=== PATIENT | female | born 1955 | race Caucasian/White ===

== ENCOUNTER 2016-05-07 13:16 | Emergency (ER) | payer OTHER ==
[~2016-05-07] VITALS: Ht 157.5 cm; Wt 60.0 kg
[~2016-05-07 13:16] MED LIST: ALBU8I INH; ASPI-94 PO; AZIT250T74 PO; CEFU1TAB43 PO; METO25 PO; Meclizine Hcl PO; NITR.4 SL; ROBIDMS PO
[2016-05-07 13:17] VITALS: BP 128/94; PULSE 111; RESP 16; TEMP 97.7; O2SAT 99
[2016-05-07] MEDS ORDERED: BACT800T5 PO (14:26)
[2016-05-07] MEDS ORDERED: CEPH-460 PO (14:26)
--- NOTE | 2016-05-07 14:30 | PD ---
HPI Chief Complaint: Skin Problem Time Seen by Provider: 14:20 Travel History International Travel<30 days: No Contact w/Intl Traveler<30days: No Traveled to known affect area: No History of Present Illness HPI 60-year-old female presents to the emergency Department with complaint of a rash to her bilateral lower extremities for the last 3 weeks. She says that she has areas that develop and then scab over and they go away but more areas develop and are doing the same process. She says starting to spread to her buttocks and her left lateral flank. She has tried topical antibiotic ointment with no relief of symptoms. She lives in a homeless half-way and says there was a woman there that had a similar rash. She denies fever, chills, nausea, vomiting. Reports some of the areas are tender to palpation. Denies drainage from any of the areas. No known allergies. History of congestive heart failure. No other modifying factors or associated signs and symptoms. PFSH Past Medical History Asthma: No Blood Disorders: No Anxiety: No Depression: No Heart Rhythm Problems: No Cancer: No Cardiovascular Problems: Yes (VT X 2 /STRESS TEST/) Chemotherapy: No Chest Pain: Yes (S) Congestive Heart Failure: Yes (2007 ) Coronary Artery Disease: Yes Diabetes: No Diminished Hearing: No Endocrine: No Genitourinary: No Hypertension: Yes (NOT TAKING MEDICATIONS) Immune Disorder: No Musculoskeletal: No Neurologic: No Psychiatric: No Reproductive: No Respiratory: No Myocardial Infarction: Yes (2007) Radiation Therapy: No Sleep Apnea: No Thyroid Disease: No Menopausal: Yes Past Surgical History Section: Yes (X3) Social History Alcohol Use: No Tobacco Use: Yes (1/2 PACK A DAY FOR 20 YEARS) Substance Use: No Allergies-Medications (Allergen,Severity, Reaction): Coded Allergies: No Known Allergies (Verified , 09/11/13) Reported Meds & Prescriptions Reported Meds & Active Scripts Active Bactrim DS (Sulfamethoxazole-Trimethoprim) 800-160 Mg Tab 1 Tab PO BID 10 Days Keflex (Cephalexin) 500 Mg Cap 500 Mg PO Q8H 10 Days Ceftin 500 Mg Tab (Cefuroxime Axetil) 500 Mg Tab 500 Mg PO BID 12 Days Zithromax (Azithromycin) 250 Mg Tab 250 Mg PO DAILY Nitroglycerin Tab 0.4 Mg Sl (Nitroglycerin) 0.4 Mg Subl 0.4 Mg SL Q5M PRN 30 Days Metoprolol Tartrate 25 mg (Metoprolol Tartrate) 25 Mg Tab 12.5 Mg PO Q12 30 Days [Meclizine Hcl] 25 MG Tab 25 Mg PO Q8 PRN 7 Days Robitussin Dm 10 Ml Udc (Guaifenesin/Dextromethorphan) 10 Ml Liqd 10 Ml PO Q4H PRN 7 Days EC-81 Aspirin (Aspirin) 81 Mg Tabec 162 Mg PO DAILY Ventolin Hfa (Albuterol Sulfate) 8 Gm Aero 2 Puff INH Q4 * SHAKE WELL BEFORE USE * Review of Systems Except as stated in HPI: all other systems reviewed are Neg Physical Exam Narrative GENERAL: Well-nourished, well-developed female patient, in no acute distress; afebrile, nontoxic-appearing SKIN: Warm and dry. Multiple honey crusted lesions in different stages of healing noted to bilateral lower extremities and one lesion noted to the left buttock. No areas with drainage noted. There are erythemic rings around some of the areas that may be consistent with infection. Multiple circular scars from healed lesions noted to bilateral lower extremities. HEAD: Atraumatic. Normocephalic. EYES: Pupils equal and round. No scleral icterus. No injection or drainage. ENT: Mucosa pink and moist. Airway patent. NECK: Trachea midline. CARDIOVASCULAR: Regular rate and rhythm. No murmur appreciated. RESPIRATORY: No accessory muscle use. Breath sounds clear and equal bilaterally. GASTROINTESTINAL: Abdomen soft, non-tender, nondistended. Positive bowel sounds. No hepato-splenomegaly, or palpable masses. No guarding. MUSCULOSKELETAL: No obvious deformities. No clubbing. No cyanosis. No edema. NEUROLOGICAL: Awake and alert. Oriented 3. No obvious cranial nerve deficits. Motor grossly within normal limits. Normal speech. PSYCHIATRIC: Appropriate mood and affect; insight and judgment normal. Data Data Last Documented VS Vital Signs Date Time Temp Pulse Resp B/P Pulse Ox O2 Delivery O2 Flow Rate FiO2 05/07/16 13:49 18 05/07/16 13:17 97.7 111 128/94 99 Room Air MDM Medical Decision Making Medical Screen Exam Complete: Yes Emergency Medical Condition: Yes Medical Record Reviewed: Yes Differential Diagnosis Bedbugs, impetigo, cellulitis Narrative Course 60-year-old female physical exam consistent with impetigo rash to bilateral lower extremities that is spreading to her buttocks. She is afebrile and nontoxic appearing. Heart rate on examination his approximately 90 bpm. She denies fever, chills, nausea, vomiting. Lives in a homeless half-way and a woman that lives there also had a similar rash. Keflex and Bactrim prescribed for home. Instructed patient to follow up with dermatology. Patient verbalizes understanding and agreement with treatment plan. Patient is medically cleared and stable for discharge. Discussed reasons to return to the emergency department. Instructed patient to follow up with primary care provider. Patient agrees with treatment plan. The patients vital signs are stable and the patient is stable for outpatient follow-up and treatment. Patient discharged home, stable and in no acute distress. Diagnosis Primary Impression: Impetigo Referrals: [facility] Primary Care Physician Patient Instructions: General Instructions, Impetigo (ED) Departure Forms: Tests/Procedures Additional Instructions: Soak affected area in warm water or apply wet compresses Apply antibiotic ointment as prescribed Use bandaids over lesions to decrease risk of spreading Wash clothes, linens, and pulse every day and don't share them with anyone else to decrease risk of spreading Wear gloves when applying antibiotic ointment and wash your hands thoroughly afterward Cut fingernails to prevent damage from scratching Wash hands frequently Keep the child home and to follow-up with the hand dry cleaner and are told that the child is not contagious Follow-up with hand dry cleaner Return to the emergency department immediately with worsening of symptoms Med/Other Pt SpecificInfo: Prescription(s) given Scripts Sulfamethoxazole-Trimethoprim (Bactrim DS)800-160 Mg Tab1 Tab PO BID 10 Days Ref 0 Prov:Mariana Bazan 05/07/16 Cephalexin (Keflex)500 Mg Lay594 Mg PO Q8H 10 Days Ref 0 Prov:Mariana Bazan 05/07/16 Disposition: 01 DISCHARGE HOME Condition: Stable Mariana Bazan May 07, 2016 14:30
[2016-05-07 14:35] VITALS: PULSE 94
== END 2016-05-07 14:52 | disposition home or self-care (01) ==
LOC: NETRI 13:16
DX: L01.00 Impetigo, unspecified (principal); I50.9 Heart failure, unspecified; I25.10 Atherosclerotic heart disease of native coronary artery without angina pectoris
CPT/HCPCS: 99283

== ENCOUNTER 2016-07-10 11:31 | Emergency (ER) | payer OTHER ==
[~2016-07-10] VITALS: Ht 157.5 cm; Wt 55.0 kg
[~2016-07-10 11:31] MED LIST changes: +BACT800T5 PO; +CEPH-460 PO
[2016-07-10 11:34] VITALS: BP 111/74; PULSE 105; RESP 18; TEMP 97.7; O2SAT 98
--- NOTE | 2016-07-10 11:59 | PD ---
HPI Chief Complaint: Pain: Acute or Chronic Time Seen by Provider: 11:45 Travel History International Travel<30 days: No Contact w/Intl Traveler<30days: No Traveled to known affect area: No History of Present Illness HPI This is a 61-year-old female who presents for evaluation of lower back pain. She reports that 2 weeks ago she was stretching on the ground. As she went to sit up she experienced some pain in her lower back. The pain is an aching/ shooting pain that is in the bilateral lower back region and it occasionally radiates into the hips and proximal thighs. Pain is reproduced with movement. Pain is minimal with rest. She has been using ibuprofen with mild relief which prompted evaluation. She denies any trauma. She denies any bowel or bladder incontinence, saddle anesthesia, flank pain, nausea or vomiting, abdominal pain. She has had similar sciatic pain in the past. In addition the patient has an area of soft tissue swelling to the anterior right park. Symptoms started 2 months ago when she hit her right park against the railing of a bowling alley. Initially the soft tissue swelling was significantly worse and seems to have improved some but it has persisted for 2 months. Pain is worse with palpation. No other complaints. PFSH Past Medical History Asthma: No Blood Disorders: No Anxiety: No Depression: No Heart Rhythm Problems: No Cancer: No Cardiovascular Problems: Yes (chf) Chemotherapy: No Chest Pain: Yes (S) Congestive Heart Failure: Yes (2007 ) Coronary Artery Disease: Yes Diabetes: No Diminished Hearing: No Endocrine: No Genitourinary: No Hypertension: Yes (NOT TAKING MEDICATIONS) Immune Disorder: No Musculoskeletal: No Neurologic: No Psychiatric: No Reproductive: No Respiratory: No Myocardial Infarction: Yes (2007) Radiation Therapy: No Sleep Apnea: No Thyroid Disease: No Menopausal: Yes Past Surgical History Section: Yes (X3) Social History Alcohol Use: No Tobacco Use: Yes (1/2 PACK A DAY FOR 20 YEARS) Substance Use: No Allergies-Medications (Allergen,Severity, Reaction): Coded Allergies: No Known Allergies (Verified , 07/10/16) Reported Meds & Prescriptions Reported Meds & Active Scripts Active Baclofen 10 Mg Tab 10 Mg PO TID PRN 7 Days Lidoderm Patch 12 HR (Lidocaine) 5% Patch 1 Patch TOPICAL DAILY Remove patch after 12 hours Reported Ibuprofen 400 Mg Tab 400 Mg PO Q6H PRN Review of Systems Except as stated in HPI: all other systems reviewed are Neg Physical Exam Narrative GENERAL: Pleasant well developed well-nourished female in no acute distress resting comfortably in hospital bed. She was able to relate from her wheelchair to the bed. SKIN: Warm and dry. HEAD: Atraumatic. Normocephalic. There is a 1.5 cm area of soft tissue swelling to the anterior right park, tender to palpation. No ecchymosis or drainage. EYES: Pupils equal and round. No scleral icterus. No injection or drainage. ENT: No nasal bleeding or discharge. Mucous membranes pink and moist. NECK: Trachea midline. No JVD. CARDIOVASCULAR: Regular rate and rhythm. No murmur appreciated. RESPIRATORY: No accessory muscle use. Clear to auscultation. Breath sounds equal bilaterally. GASTROINTESTINAL: Abdomen soft, non-tender, nondistended. No palpable pulsatile masses. No CVA tenderness. MUSCULOSKELETAL: No obvious deformities. There is no tenderness to palpation along the thoracic or lumbar midline spine. 5 muscle strength in flexion, leg flexion and extension, dorsi and plantar flexion bilaterally. There is no obvious discomfort when the patient goes from a lying down to a sitting position independently. NEUROLOGICAL: Awake and alert. No obvious cranial nerve deficits. Motor grossly within normal limits. Normal speech. Data Data Last Documented VS Vital Signs Date Time Temp Pulse Resp B/P Pulse Ox O2 Delivery O2 Flow Rate FiO2 07/10/16 11:34 97.7 105 18 111/74 98 Orders Tibia/Fibula (Ap/Lat) (07/10/16 ) Orphenadrine Inj (Norflex Inj) (07/10/16 12:00) Acetaminophen (Tylenol) (07/10/16 12:00) MDM Medical Decision Making Medical Screen Exam Complete: Yes Emergency Medical Condition: Yes Medical Record Reviewed: Yes Differential Diagnosis Herniated mucous pulposus, piriformis syndrome, compression fracture, spinal stenosis, lumbar strain, no evidence for AAA or cauda equina syndrome Narrative Course 61-year-old female with lower back pain that occasionally radiates into the thighs. Symptoms started 2 weeks ago when she went to sit up from a mat on the floor. Physical examination is reassuring. She has no symptoms to suggest spinal cord compromise. She has no vertebral tenderness to palpation to suggest bony abnormality. Suspect lumbosacral radiculopathy. In addition the patient has an area of soft tissue swelling and tenderness to palpation to the anterior right park which initially started 2 months ago when she hit her leg against the railing and the bowling alley. Given the duration of her symptoms, tibia-fibula x-ray has been ordered. X-ray imaging is unremarkable. The patient is stable for discharge. She is given information on patient assistance program for outpatient follow-up purposes. Diagnosis Primary Impression: Lumbosacral radiculopathy Additional Instructions: Medication as needed. Do not drive or drink alcohol when taking baclofen. Avoid strenuous activity, heavy lifting. Follow up close with primary care physician. You may benefit from outpatient physical therapy if symptoms persist. Return for any emergent medical conditions. Med/Other Pt SpecificInfo: Prescription(s) given Scripts Baclofen 10 Mg Tab10 Mg PO TID PRN (MUSCLE SPASM) 7 Days Ref 0 Prov:Nicholas Clemente MD 07/10/16 Lidocaine Patch 12 HR (Lidoderm Patch 12 HR)5% Patch1 Patch TOPICAL DAILY #1 BOX Ref 1 Remove patch after 12 hours Prov:Nicholas Clemente MD 07/10/16 Disposition: 01 DISCHARGE HOME Condition: Stable Ray Muñiz July 10, 2016 11:59
[2016-07-10] MEDS ORDERED: ACETAMINOPHEN 325 MG TAB PO ONE (12:00)
[2016-07-10] MEDS ORDERED: ORPHENADRINE INJ 60 MG/2 ML AMP IM ONE (12:00)
[2016-07-10] MEDS ORDERED: IBUP400T20 PO (12:08)
[2016-07-10] MEDS ORDERED: BACL10TA PO ×3 (12:30→12:36)
[2016-07-10] MEDS ORDERED: LIDO5DIS35 TOPICAL ×3 (12:30→12:36)
[2016-07-10 12:43] VITALS: BP 105/57
--- NOTE | 2016-07-10 13:34 | RADRPT ---
EXAM DATE/TIME: 07/10/2016 12:10 [facility] COMPARISON: No previous studies available for comparison. INDICATIONS : Right mid tib/fib pain and knot for 6 months. Lump to the right mid tib/fib appeared after hitting a wall 6 months ago. MEDICAL HISTORY : None. SURGICAL HISTORY : None. ENCOUNTER: Initial ACUITY: 4 - 6 months PAIN SCORE: 5/10 LOCATION: Right lower leg. FINDINGS: Two view examination of the right tibia demonstrates very mild periosteal reaction along the anterior mid tibial cortex. Findings are nonspecific and could represent a focal area of prior trauma. Otherw ise, no fracture. Adjacent soft tissues are radiographically intact. CONCLUSION: 1. Focal area of periosteal reaction in the anterior junction of the upper and middle third of the ti dwight. Findings are nonspecific and could represent previous focal trauma or a small hairline fracture. 2. No large bone fracture identified. Regional soft tissues are otherwise rigorously intact. Jesus Lundberg MD on July 10, 2016 at 13:29 Board Certified Radiologist. This report was verified electronically.
== END 2016-07-10 12:54 | disposition home or self-care (01) ==
LOC: NEPD 11:31
DX: M54.17 Radiculopathy, lumbosacral region (principal); R22.41 Localized swelling, mass and lump, right lower limb; I10 Essential (primary) hypertension; I25.2 Old myocardial infarction; F17.200 Nicotine dependence, unspecified, uncomplicated; Z86.79 Personal history of other diseases of the circulatory system
CPT/HCPCS: 73590; 96372; 99283; J2360

== ENCOUNTER 2016-08-06 14:23 | Inpatient (IN) | payer OTHER ==
[~2016-08-06] VITALS: Ht 157.5 cm; Wt 49.1 kg
[~2016-08-06 14:23] MED LIST changes: -ALBU8I INH; -ASPI-94 PO; -AZIT250T74 PO; +BACL10TA PO; -BACT800T5 PO; -CEFU1TAB43 PO; -CEPH-460 PO; +IBUP400T20 PO; +LIDO5DIS35 TOPICAL; -METO25 PO; -Meclizine Hcl PO; -NITR.4 SL; -ROBIDMS PO
[2016-08-06 14:30] VITALS: BP 98/66; PULSE 120; RESP 18; TEMP 98.1; O2SAT 98
--- NOTE | 2016-08-06 16:30 | PD ---
HPI . right hip pain Chief Complaint: Pain: Acute or Chronic Time Seen by Provider: 16:30 Travel History International Travel<30 days: No Contact w/Intl Traveler<30days: No Traveled to known affect area: No History of Present Illness HPI 61-year-old female here with complaints of right hip pain. Patient tells me she is homeless and does not have anyone to assist her. She says that she has developed increased right hip pain and thinks she may have broken it. She reports difficulty using her walker secondary the pain. She rates it as very severe. While lying in the bed she has full range of motion of bilateral hips and lower extremity. She tells me that the pain is so intense that she has decided to just lay in bed and urinate and have bowel movements on herself. She is fully aware of having these episodes of incontinence, but says that her pain is so severe that she refuses to get up to try to make toilet. She also reports not showering for 2 weeks. She denies any saddle anesthesia. She denies any recent falls or trauma to the area. She is currently residing in a [facility] homeless snf. PFSH Past Medical History Asthma: No Blood Disorders: No Anxiety: No Depression: No Heart Rhythm Problems: No Cancer: No Cardiovascular Problems: Yes (chf) Chemotherapy: No Chest Pain: Yes (S) Congestive Heart Failure: Yes (2007 ) Coronary Artery Disease: Yes Diabetes: No Diminished Hearing: No Endocrine: No Gastrointestinal Disorders: No Genitourinary: No Hypertension: Yes (NOT TAKING MEDICATIONS) Immune Disorder: No Implanted Vascular Access Dvce: No Musculoskeletal: No Neurologic: No Psychiatric: No Reproductive: No Respiratory: Yes Myocardial Infarction: Yes (2007) Radiation Therapy: No Sleep Apnea: No Thyroid Disease: No Menopausal: Yes Past Surgical History Section: Yes (X3) Other Surgery: Yes (3 C SECTIONS) Social History Alcohol Use: No Tobacco Use: Yes (1/2 PACK A DAY FOR 20 YEARS) Substance Use: No Allergies-Medications (Allergen,Severity, Reaction): Coded Allergies: No Known Allergies (Verified , 07/10/16) Reported Meds & Prescriptions Reported Meds & Active Scripts Active No Active Prescriptions or Reported Medications Review of Systems General / Constitutional: No: Fever Eyes: No: Visual changes HENT: No: Headaches Cardiovascular: No: Chest Pain or Discomfort Respiratory: No: Shortness of Breath Gastrointestinal: No: Abdominal Pain Genitourinary: No: Dysuria Musculoskeletal: Positive: Pain (right hip) Skin: No Rash Neurologic: No: Weakness Psychiatric: No: Depression Endocrine: No: Polydipsia Hematologic/Lymphatic: No: Easy Bruising Physical Exam Narrative GENERAL: AAO x 3, no acute distress, Well-nourished, well-developed patient. SKIN: Warm and dry. No visible rashes or bruising. HEAD: Normocephalic and atraumatic. EYES: No scleral icterus. No injection or drainage. EOM intact, PERRLA ENT: No nasal drainage noted. Mucous membranes pink. Airway patent. dry mucous membranes, otherwise normal oropharynx NECK: Supple, trachea midline. No JVD. CARDIOVASCULAR: Regular rate and rhythm without murmurs, gallops, or rubs. RESPIRATORY: Breath sounds equal bilaterally. No accessory muscle use. No rhonchi or rales. GASTROINTESTINAL: Abdomen soft, non-tender, nondistended. EXTREMITIES: No cyanosis or edema. FULL active and passive ROM B/l hip and lower extremity, BACK: Nontender without obvious deformity. No CVA tenderness. NEURO: CN II-12 intact, preschool substitute teacher strength normal b/l, UE and LE 5/5, no focal deficits PSYCH: AAO x 3, normal affect. Data Data Last Documented VS Vital Signs Date Time Temp Pulse Resp B/P Pulse Ox O2 Delivery O2 Flow Rate FiO2 08/06/16 18:30 100 17 159/94 98 Room Air 08/06/16 14:30 98.1 Orders Hip, Uni(Ap&Lat) Wo Ap Pelvis (08/06/16 16:38) Urinalysis - C+S If Indicated (08/06/16 16:43) Electrocardiogram (08/06/16 ) Iv Access Insert/Monitor (08/06/16 16:44) Sodium Chlor 0.9% 1000 Ml Inj (Ns 1000 M (08/06/16 16:45) Complete Blood Count With Diff (08/06/16 16:48) Comprehensive Metabolic Panel (08/06/16 16:48) Spine, Lumbar Comp W/Obliq (08/06/16 17:25) Potassium Chloride (Kcl) (08/06/16 18:15) Basic Metabolic Panel (Bmp) (08/06/16 18:38) Diet Regular Basic (08/06/16 Dinner) Vital Signs (Adult) PHANI.Q4H (08/06/16 18:38) Acetaminophen (Tylenol) (08/06/16 18:45) Sodium Chlor 0.9% 1000 Ml Inj (Ns 1000 M (08/06/16 18:45) Ondansetron Inj (Zofran Inj) (08/06/16 18:45) Admit Order (Ed Use Only) (08/06/16 18:41) Labs Laboratory Tests Test 08/06/16 17:00 White Blood Count 12.2 TH/MM3 Red Blood Count 3.65 MIL/MM3 Hemoglobin 12.1 GM/DL Hematocrit 36.4 % Mean Corpuscular Volume 99.8 FL Mean Corpuscular Hemoglobin 33.2 PG Mean Corpuscular Hemoglobin 33.2 % Concent Red Cell Distribution Width 15.2 % Platelet Count 235 TH/MM3 Mean Platelet Volume 9.3 FL Neutrophils (%) (Auto) 77.9 % Lymphocytes (%) (Auto) 15.0 % Monocytes (%) (Auto) 6.1 % Eosinophils (%) (Auto) 0.3 % Basophils (%) (Auto) 0.7 % Neutrophils # (Auto) 9.5 TH/MM3 Lymphocytes # (Auto) 1.8 TH/MM3 Monocytes # (Auto) 0.7 TH/MM3 Eosinophils # (Auto) 0.0 TH/MM3 Basophils # (Auto) 0.1 TH/MM3 CBC Comment DIFF FINAL Differential Comment Urine Color YELLOW Urine Turbidity HAZY Urine pH 6.0 Urine Specific [place] 1.024 Urine Protein 30 mg/dL Urine Glucose (UA) NEG mg/dL Urine Ketones 40 mg/dL Urine Occult Blood TRACE Urine Nitrite NEG Urine Bilirubin NEG Urine Urobilinogen 4.0 MG/DL Urine Leukocyte Esterase NEG Urine RBC 3 /hpf Urine WBC 4 /hpf Urine Squamous Epithelial 1 /hpf Cells Urine Bacteria RARE /hpf Urine Mucus MANY /lpf Microscopic Urinalysis Comment CULT NOT INDICATED Sodium Level 144 MEQ/L Potassium Level 2.2 MEQ/L Chloride Level 102 MEQ/L Carbon Dioxide Level 27.1 MEQ/L Anion Gap 15 MEQ/L Blood Urea Nitrogen 27 MG/DL Creatinine 0.74 MG/DL Estimat Glomerular Filtration 80 ML/MIN Rate Random Glucose 115 MG/DL Calcium Level 12.2 MG/DL Protein Corrected Calcium 12.4 MG/DL Total Bilirubin 1.1 MG/DL Aspartate Amino Transf 36 U/L (AST/SGOT) Alanine Aminotransferase 20 U/L (ALT/SGPT) Alkaline Phosphatase 297 U/L Total Protein 6.9 GM/DL Albumin 3.2 GM/DL MDM Medical Decision Making Medical Screen Exam Complete: Yes Emergency Medical Condition: Yes Medical Record Reviewed: Yes Differential Diagnosis OA, RA, less likely hip fracture, malignancy, hypokalemia, hypercalcemia, Narrative Course 61 yr old female here with c/o right hip pain. Exam is unremarkable. Patient does reek of urine, but admits to doing it due to pain. workup in progress 1804: Lab called with critical potassium: 2.2, corrected calcium 12.4, patient given 60 meq of K+, discussed with Dr. Vargas. recommend admission for observation. I believe patient could have some type of cancer that has mets to bone with elevated alk phos and elevated calcium. She also has slight elevated WBC and neutrophils. Source of infection unknown. CXR normal. Urine appreciated. She has no diarrhea, nausea, vomiting. She does not have a PCP and will likely not be able to get a f/u K+ level rechecked. Nor would she be able to f/u her other lab abnormalities. I have discussed with Dr. Og. He has accepted the patient for observation. Diagnosis Primary Impression: Hypokalemia Admitting Information Admitting Physician Requests: Admit Scripts No Active Prescriptions or Reported Meds Condition: Stable Crystal Dawson Aug 06, 2016 16:30
[2016-08-06] MEDS ORDERED: SODIUM CHLOR 0.9% 1000 ML INJ 1,000 ML IV ONE (16:45)
--- NOTE | 2016-08-06 17:07 | RADRPT ---
EXAM DATE/TIME: 08/06/2016 16:55 [facility] COMPARISON: No previous studies available for comparison. INDICATIONS : Right hip pain. No known injury. MEDICAL HISTORY : None. SURGICAL HISTORY : None. ENCOUNTER: Initial ACUITY: 1 month PAIN SCORE: 7/10 LOCATION: Right hip. FINDINGS: There is no acute fracture or dislocation of the right hip. Mild degenerative changes are noted invol ving the right hip joint. CONCLUSION: 1. No acute fracture or dislocation. 2. Mild degenerative changes involving the right hip joint. Doroteo Henning MD on August 06, 2016 at 17:03 Board Certified Radiologist. This report was verified electronically.
[2016-08-06 17:42] VITALS: BP 144/83; PULSE 101; RESP 18; O2SAT 97
[2016-08-06 17:42] LABS: BACTERIA, URINE RARE /hpf; BLOOD, URINE TRACE (NEG); COMMENT (UR) CULT NOT INDICATED; CULTURE IF INDICATED CULT NOT INDICATED; GLUCOSE,URINE NEG (NEG); KETONE, URINE 40 mg/dL (NEG); MUCUS URINE MANY /lpf (OCC); NITRITE,URINE NEG (NEG); SQUAMOUS EPITHELIAL CELL URINE 1 /hpf (0-5); URINE COLOR YELLOW (YELLW/STRAW)
[2016-08-06 17:53] LABS: AUTOMATED NEUTROPHIL # 9.5 TH/MM3 (1.8-7.7); BASOPHIL # 0.1 TH/MM3 (0-0.2); BASOPHIL % 0.7 % (0.0-2.0); EOSINOPHIL % 0.3 % (0.0-4.0); HEMATOCRIT 36.4 % (35.0-46.0); HEMO FLAGS DIFF FINAL; LYMPHOCYTE # 1.8 TH/MM3 (1.0-4.8); MEAN CELL VOLUME 99.8 FL (80.0-100.0); MEAN CORPUSCULAR HEMOGLOBIN 33.2 PG (27.0-34.0); MEAN CORPUSCULAR HGB CONC 33.2 % (32.0-36.0); MONO % 6.1 % (0.0-8.0); NEUT % 77.9 % (16.0-70.0); PLATELET COUNT 235 TH/MM3 (150-450); RED BLOOD COUNT 3.65 MIL/MM3 (4.00-5.30); RED CELL DISTRIBUTION WIDTH 15.2 % (11.6-17.2); WHITE BLOOD COUNT 12.2 TH/MM3 (4.0-11.0)
[2016-08-06 17:56] LABS: BICARBONATE 27.1 MEQ/L (21.0-32.0); POTASSIUM 2.2 MEQ/L (3.5-5.1); TOTAL BILIRUBIN ADULT 1.1 MG/DL (0.2-1.0)
[2016-08-06 18:03] LABS: CALCIUM-PROTEIN CORRECTED 12.4 MG/DL (8.5-10.1)
[2016-08-06] MEDS ORDERED: POTASSIUM CHLORIDE 10 MEQ CONTROLLED RELEASE TAB PO ONE (18:15)
--- NOTE | 2016-08-06 18:19 | RADRPT ---
EXAM DATE/TIME: 08/06/2016 18:01 [facility] COMPARISON: No previous studies available for comparison. INDICATIONS : Back pain, no known injury, pain for 1 month. MEDICAL HISTORY : None. SURGICAL HISTORY : None. ENCOUNTER: Initial ACUITY: 1 month PAIN SCORE: 8/10 LOCATION: Back. FINDINGS: There is moderate to severe loss of height of the L3 vertebral body, appears chronic. Slight endplate irregularity seen superiorly of L5, also probably chronic. No acute coracobrachialis are. No subluxa tions. There is moderate disc space narrowing at L2/L3 and mild disc space narrowing at the other levels. Mo derate facet osteoarthritis throughout. CONCLUSION: Nonacute appearing compression deformities, moderate to severe of L3 and slight of L5. Haroon Tillman MD on August 06, 2016 at 18:15 Board Certified Radiologist. This report was verified electronically.
[2016-08-06 18:30] VITALS: BP 159/94; PULSE 100; RESP 17; O2SAT 98
[2016-08-06] MEDS ORDERED: ACETAMINOPHEN 325 MG TAB PO PRN (18:45)
[2016-08-06] MEDS ORDERED: SODIUM CHLOR 0.9% 1000 ML INJ 1,000 ML IV SCH (18:45)
[2016-08-06] MEDS ORDERED: ONDANSETRON HCL 4 MG/2 ML VIAL IV PUSH PRN (18:45)
[2016-08-06 20:04] VITALS: BP 115/71; PULSE 100; RESP 18; O2SAT 99
[2016-08-06 21:00] VITALS: BP 128/77; PULSE 104; RESP 16; O2SAT 97
[2016-08-06 21:33] LABS: BICARBONATE 29.4 MEQ/L (21.0-32.0); POTASSIUM 3.2 MEQ/L (3.5-5.1)
[2016-08-06 22:01] VITALS: BP 183/87; PULSE 88; RESP 20; TEMP 97.9; O2SAT 95
[2016-08-07] VITALS: BP 142/68; PULSE 103; RESP 16; TEMP 96.3; O2SAT 98
[2016-08-07] MEDS ORDERED: POTASSIUM CHLORIDE 20 MEQ CONTROLLED RELEASE TAB PO ONE (01:00)
[2016-08-07 01:07] LABS: BICARBONATE 27.8 MEQ/L (21.0-32.0)
[2016-08-07 01:09] LABS: POTASSIUM 2.7 MEQ/L (3.5-5.1)
--- NOTE | 2016-08-07 02:50 | HHI.HP ---
HPI Service [facility] Primary Care Physician No Primary Care Physician Admission Diagnosis Hypokalemia Diagnoses: Travel History International Travel<30 Days: No Contact w/Intl Traveler <30 Da: No Traveled to Known Affected Are: No History of Present Illness right hip pain for one month came to hospital then but htought she strained her lower back tehn was using walker since then almost fell few times with walker was sitting on edge of bed and started to get up, and fell backwards onto the bed many times she was walking and fell with walker was told to take muscle relaxors adn initinally helped could not get to bathroom - urine incontinence have not had bowel movements in weeks has been eating very little no fever no nausea/ no vomiting/ no diarrhea no blood no abdominal pain/ no chest pain/ no sob was taking antihistamine and this caused her chest to hurt and thus stopped Past Family Social History Past Medical History 2014- heart failure , htn intially Past Surgical History c section x 3- 1975, 1976, 1984 Allergies: Coded Allergies: No Known Allergies (Verified , 07/10/16) Family History mom- pacemaker oldest sister- cancerof colon Social History smokes 3 cigarrtes all week now no drinking no drugs Physical Exam Vital Signs Vital Signs Date Time Temp Pulse Resp B/P Pulse Ox O2 Delivery O2 Flow Rate FiO2 08/07/16 00:00 96.3 103 16 142/68 98 08/06/16 22:01 97.9 88 20 183/87 95 08/06/16 21:00 104 16 128/77 97 Room Air 08/06/16 20:04 100 18 115/71 99 Room Air 08/06/16 18:30 100 17 159/94 98 Room Air 08/06/16 17:42 101 18 144/83 97 Room Air 08/06/16 14:30 98.1 120 18 98/66 98 Room Air Physical Exam GENERAL: This is a well-nourished, well-developed patient, in no apparent distress. SKIN: No rashes, ecchymoses or lesions. Cool and dry. HEAD: Atraumatic. Normocephalic. No temporal or scalp tenderness. EYES: No scleral icterus. No injection or drainage. ENT: Nose without bleeding, purulent drainage or septal hematoma. Airway patent. NECK: Trachea midline. No JVD . Supple, nontender, no meningeal signs. CARDIOVASCULAR: Regular rate and rhythm without murmurs, gallops, or rubs. RESPIRATORY: Clear to auscultation. Breath sounds equal bilaterally. No wheezes , rales, or rhonchi. GASTROINTESTINAL: Abdomen soft, non-tender, nondistended.. No guarding. MUSCULOSKELETAL: Extremities without clubbing, cyanosis, or edema. No calf tenderness. severe pain on movement of right LE, but more at right flank and lower back NEUROLOGICAL: Awake and alert. Normal speech. Laboratory Laboratory Tests Test 08/06/16 08/06/16 08/06/16 17:00 20:30 23:54 White Blood Count 12.2 Red Blood Count 3.65 Hemoglobin 12.1 Hematocrit 36.4 Mean Corpuscular Volume 99.8 Mean Corpuscular Hemoglobin 33.2 Mean Corpuscular Hemoglobin 33.2 Concent Red Cell Distribution Width 15.2 Platelet Count 235 Mean Platelet Volume 9.3 Neutrophils (%) (Auto) 77.9 Lymphocytes (%) (Auto) 15.0 Monocytes (%) (Auto) 6.1 Eosinophils (%) (Auto) 0.3 Basophils (%) (Auto) 0.7 Neutrophils # (Auto) 9.5 Lymphocytes # (Auto) 1.8 Monocytes # (Auto) 0.7 Eosinophils # (Auto) 0.0 Basophils # (Auto) 0.1 CBC Comment DIFF FINAL Differential Comment Urine Color YELLOW Urine Turbidity HAZY Urine pH 6.0 Urine Specific [place] 1.024 Urine Protein 30 Urine Glucose (UA) NEG Urine Ketones 40 Urine Occult Blood TRACE Urine Nitrite NEG Urine Bilirubin NEG Urine Urobilinogen 4.0 Urine Leukocyte Esterase NEG Urine RBC 3 Urine WBC 4 Urine Squamous Epithelial 1 Cells Urine Bacteria RARE Urine Mucus MANY Microscopic Urinalysis Comment CULT NOT INDICATED Sodium Level 144 146 146 Potassium Level 2.2 3.2 2.7 Chloride Level 102 107 108 Carbon Dioxide Level 27.1 29.4 27.8 Anion Gap 15 10 10 Blood Urea Nitrogen 27 27 27 Creatinine 0.74 0.81 0.64 Estimat Glomerular Filtration 80 72 95 Rate Random Glucose 115 210 150 Calcium Level 12.2 10.5 9.9 Protein Corrected Calcium 12.4 Total Bilirubin 1.1 Aspartate Amino Transf 36 (AST/SGOT) Alanine Aminotransferase 20 (ALT/SGPT) Alkaline Phosphatase 297 Total Protein 6.9 Albumin 3.2 Result Diagram: 08/06/16 1700 08/06/16 2354 Imaging Last 48 hours Impressions Lumbar Spine X-Ray 08/06/16 1725 Signed Impressions: Service Date/Time: Saturday, August 06, 2016 18:01 - CONCLUSION: Nonacute appearing compression deformities, moderate to severe of L3 and slight of L5. Haroon Tillman MD Hip X-Ray 08/06/16 1638 Signed Impressions: Service Date/Time: Saturday, August 06, 2016 16:55 - CONCLUSION: 1. No acute fracture or dislocation. 2. Mild degenerative changes involving the right hip joint. Doroteo Henning MD Assessment and Plan Assessment and Plan Impression: Severe electrolytes abnormalities Hypokalemia Hypercalcemialikely due to immobility from pain Mild leukocytosis with left shiftlikely due to acute stress from pain Intractable lower back and right hip pain Compression deformities moderate to severe of L3 and slight of L5 History of hypertension Congestive heart failurein 2013 Plan: Patient received potassium supplements in ER. Will monitor repeat BMP and serially. She received IV fluids 1 L total in ER. Repeat BMP showed corrected calcium with IV hydration. DC fluids now. Hydrate orally. Pain control. Would consult neurosurgery for possible intervention regarding her compression fractures. Physical therapy consult. DVT prophylaxiswith Lovenox. Discussed Condition With Patient, ER physician, patient's nurse Physician Certification Order for Inpatient Services The services are ordered in accordance with Medicare regulations or non- Medicare payer requirements, as applicable. In the case of services not specified as inpatient-only, they are appropriately provided as inpatient services in accordance with the 2-midnight benchmark. days is the estimated time the patient will need to remain in the hospital, assuming treatment plan goals are met and no additional complications. Augustus Win MD Aug 07, 2016 02:50
[2016-08-07] MEDS: POTASSIUM CHLOR 20 MEQ PREMIX 100 ML IV SCH ×2 (02:58→05:22)
[2016-08-07] MEDS: MORPHINE SULFATE 4 MG/ML INJ IV PUSH PRN ×5 (03:06→21:58)
[2016-08-07 04:00] VITALS: BP 142/80; PULSE 90; RESP 16; TEMP 97.3; O2SAT 96
[2016-08-07 08:00] VITALS: BP 159/96; PULSE 97; RESP 18; TEMP 97.1; O2SAT 95
[2016-08-07 09:02] LABS: BICARBONATE 24.1 MEQ/L (21.0-32.0); POTASSIUM 3.5 MEQ/L (3.5-5.1)
[2016-08-07] MEDS ORDERED: IBUP400T20 PO (09:31)
[2016-08-07 12:00] VITALS: BP 132/75; PULSE 100; RESP 18; TEMP 96; O2SAT 96
[2016-08-07] MEDS: ENOXAPARIN SODIUM 40 MG/0.4 ML SYRINGE SQ SCH (12:26)
--- NOTE | 2016-08-07 12:45 | PD.CONS ---
History of Present Illness Service Neurosurgery Consult Requested By Medicine service Reason for Consult Lumbar fracture Primary Care Physician No Primary Care Physician Diagnoses: History of Present Illness 61-year-old female states that approximately a month ago she developed onset of progressive severe low back pain . She does not recall any definite cause of the symptoms. She states she may have been lifting some boxes and strained her back. She states that she was seen in the emergency room for medical evaluation at that time. Her EMR indicates that she was seen on 07/10/16 complaining of approximately 2 weeks of low back pain after doing some stretching. She was released with baclofen and a Lidoderm patch. She states that she had to start using a walker due to persistent pain over the past month , and has been somewhat unsteady with her gait. She fell a week ago, and since then has had significant increase low back pain with radiation to primarily the right lateral hip and thigh. She has been mostly bedridden since she fell, unable to stand up even with a walker. She has had episodes of loss of bowel and bladder control, but attributes these to pain and not being able to get to the bathroom rather than actual incontinence. No complaint of significant numbness in the lower extremities. No pain which is some numbness in the upper extremities Review of Systems Constitutional: COMPLAINS OF: Fatigue, DENIES: Fever, Weight loss Eyes: DENIES: Blurred vision Ears, nose, mouth, throat: DENIES: Vertigo Cardiovascular: DENIES: Chest pain, Palpitations Gastrointestinal: DENIES: Abdominal pain, Diarrhea, Nausea Musculoskeletal: COMPLAINS OF: Joint pain, Muscle aches, Back pain, DENIES: Neck pain Hematologic/lymphatic: DENIES: Bruising Neurologic: COMPLAINS OF: Abnormal gait, DENIES: Headache, Paresthesias Psychiatric: DENIES: Anxiety, Confusion Past Family Social History Allergies: Coded Allergies: No Known Allergies (Verified , 07/10/16) Past Medical History Coronary artery disease CHF Hypertension Previous [place] Past Surgical History Reported Medications Reported Meds & Active Scripts Active Reported Ibuprofen 400 Mg Tab 400 Mg PO Q6H PRN Social History The smoke one half packs a year it has a day for over 20 years. No alcohol use Is presently residing in a homeless long term Physical Exam Vital Signs Vital Signs Date Time Temp Pulse Resp B/P Pulse Ox O2 Delivery O2 Flow Rate FiO2 08/07/16 08:00 97.1 97 18 159/96 95 6/15/17 04:00 97.3 90 16 142/80 96 08/07/16 00:00 96.3 103 16 142/68 98 08/06/16 22:01 97.9 88 20 183/87 95 08/06/16 21:00 104 16 128/77 97 Room Air 08/06/16 20:04 100 18 115/71 99 Room Air 08/06/16 18:30 100 17 159/94 98 Room Air 08/06/16 17:42 101 18 144/83 97 Room Air 08/06/16 14:30 98.1 120 18 98/66 98 Room Air Physical Exam GENERAL: This is a well-nourished, well-developed patient, in no apparent distress. SKIN: No rashes, ecchymoses or lesions. Cool and dry. HEAD: Atraumatic. Normocephalic. EYES: Sclerae clear and nonicteric ENT: No facial edema or ecchymosis NECK: Trachea midline. No JVD or lymphadenopathy. Supple, nontender, no meningeal signs. MUSCULOSKELETAL: Mild right lateral hip tenderness and relatively mild right hip and proximal thigh discomfort with right straight leg raising to approximately 45 and to a lesser extent with internal and external rotation of the right lower extremity. No complaint with left hip range of motion or straight leg raising NEUROLOGICAL: She is alert oriented conversant and appropriate No neck tenderness Moderate tenderness over the mid to lower lumbar midline and paraspinous musculature Sensation intact to light touch all extremities She has difficulty with right iliopsoas quadriceps hamstrings testing, initially giving mostly to-3 strength in complaining of right hip and thigh pain with this movement, but with encouragement able to briefly maintain 4/5 right iliopsoas and hamstring, but not more than 3/5 brief with the right quadriceps. Kiana's response absent bilateral No ankle clonus Laboratory Laboratory Tests Test 08/06/16 08/06/16 08/06/16 08/07/16 17:00 20:30 23:54 08:19 White Blood Count 12.2 Red Blood Count 3.65 Hemoglobin 12.1 Hematocrit 36.4 Mean Corpuscular Volume 99.8 Mean Corpuscular Hemoglobin 33.2 Mean Corpuscular Hemoglobin 33.2 Concent Red Cell Distribution Width 15.2 Platelet Count 235 Mean Platelet Volume 9.3 Neutrophils (%) (Auto) 77.9 Lymphocytes (%) (Auto) 15.0 Monocytes (%) (Auto) 6.1 Eosinophils (%) (Auto) 0.3 Basophils (%) (Auto) 0.7 Neutrophils # (Auto) 9.5 Lymphocytes # (Auto) 1.8 Monocytes # (Auto) 0.7 Eosinophils # (Auto) 0.0 Basophils # (Auto) 0.1 CBC Comment DIFF FINAL Differential Comment Urine Color YELLOW Urine Turbidity HAZY Urine pH 6.0 Urine Specific [place] 1.024 Urine Protein 30 Urine Glucose (UA) NEG Urine Ketones 40 Urine Occult Blood TRACE Urine Nitrite NEG Urine Bilirubin NEG Urine Urobilinogen 4.0 Urine Leukocyte Esterase NEG Urine RBC 3 Urine WBC 4 Urine Squamous Epithelial 1 Cells Urine Bacteria RARE Urine Mucus MANY Microscopic Urinalysis Comment CULT NOT INDICATED Sodium Level 144 146 146 143 Potassium Level 2.2 3.2 2.7 3.5 Chloride Level 102 107 108 108 Carbon Dioxide Level 27.1 29.4 27.8 24.1 Anion Gap 15 10 10 11 Blood Urea Nitrogen 27 27 27 24 Creatinine 0.74 0.81 0.64 0.46 Estimat Glomerular Filtration 80 72 95 139 Rate Random Glucose 115 210 150 105 Calcium Level 12.2 10.5 9.9 10.0 Protein Corrected Calcium 12.4 Total Bilirubin 1.1 Aspartate Amino Transf 36 (AST/SGOT) Alanine Aminotransferase 20 (ALT/SGPT) Alkaline Phosphatase 297 Total Protein 6.9 Albumin 3.2 Result Diagram: 08/06/16 1700 08/07/16 0819 Imaging 08/06/16 R spine x-ray images reviewed. There is an approximately 50% L3 compression fracture with mild retropulsion. Also probable mild L5 superior compression fracture without retropulsion. Lumbar Spine X-Ray 08/06/16 1725 Signed Impressions: Service Date/Time: Saturday, August 06, 2016 18:01 - CONCLUSION: Nonacute appearing compression deformities, moderate to severe of L3 and slight of L5. Haroon Tillman MD Hip X-Ray 08/06/16 1638 Signed Impressions: Service Date/Time: Saturday, August 06, 2016 16:55 - CONCLUSION: 1. No acute fracture or dislocation. 2. Mild degenerative changes involving the right hip joint. Doroteo Henning MD Assessment and Plan Assessment and Plan Impression: 1. Approximately 50% L3 and minimal L5 compression fractures. 2. Question of mild right L3-4 motor deficit Recommendations: Findings were discussed with the patient the presence of her nurse. She has been able to ambulate quite a bit better this morning, and states that her pain has improved significantly since she has been in the hospital. It is likely that she will be able to continue conservative treatment for the lumbar fractures. However due to the possible right L3-4 motor deficit on exam, it is recommended that she proceed with an MRI of the lumbar spine. She may continue to mobilize out of bed with physical therapy Rojas Stephens MD Aug 07, 2016 12:45
[2016-08-07 13:40] LABS: BICARBONATE 25.1 MEQ/L (21.0-32.0); POTASSIUM 3.4 MEQ/L (3.5-5.1)
--- NOTE | 2016-08-07 15:20 | EKG ---
Date Performed: 08/06/2016 Time Performed: 17:11:43 PTAGE: 61 years EKG: Sinus rhythm POSSIBLE LEFT ATRIAL ENLARGEMENT BORDERLINE ECG Compared to prior tracing no significant change PREVIOUS TRACING : 09/12/2013 01.25 DOCTOR: Delvin Fan Interpretating Date/Time 08/07/2016 15:19:30
[2016-08-07 16:00] VITALS: BP 128/83; PULSE 94; RESP 18; TEMP 97.2; O2SAT 94
[2016-08-07] MEDS ORDERED: POTASSIUM CHLORIDE 10 MEQ CONTROLLED RELEASE TAB PO ONE (16:45)
[2016-08-07] MEDS: MAGNESIUM HYDROXIDE SUSP 30 ML CUP PO PRN (17:10)
[2016-08-07 19:00] VITALS: BP 130/83; PULSE 104; RESP 16; TEMP 98.6; O2SAT 93
[2016-08-07] MEDS ORDERED: GADODIAMIDE PF 287 MG/ML 5 ML VIAL (for RAD MRI) IV ONE (21:56)
[2016-08-07] MEDS: DOCUSATE SODIUM 100 MG CAP PO SCH (21:58)
--- NOTE | 2016-08-07 22:13 | RADRPT ---
EXAM DATE/TIME: 08/07/2016 20:41 [facility] COMPARISON: SPINE LUMBAR COMPLETE W/OBLIQ, August 06, 2016, 18:01. INDICATIONS : Fracture. Lower back pain radiating to right hip and leg. CONTRAST: 11 cc Omniscan (gadodiamide) IV MEDICAL HISTORY : Hypertension. Myocardial infarction. HTN. CAD. SURGICAL HISTORY : section. Tonsillectomy. ENCOUNTER: Subsequent ACUITY: 1 month PAIN SCORE: 8/10 LOCATION: Lower back. TECHNIQUE: Multiplanar multisequence MRI of the lumbar spine was performed with and without contrast. FINDINGS: Numerous enhancing bone lesions are present compatible with metastatic disease. These involve the sup erior and plate of T12 and L2, both with mild compression deformities, the entire L3 vertebral body w ith a severe compression deformity, posteriorly on the left and including the left posterior elements of L4 and diffuse of L5 with a mild compression deformity. There are large lesions involving the bod y and ala and of the sacrum, right worse than left. There is also involvement of the visualized right iliac bone. An expansile lesion is partly seen of the right iliac bone it measures at least 5 cm in size. Mild bony expansion and extraosseous tumor seen on the left of L4 and with associated mild tumor-asso ciated left L4/L5 foraminal stenosis. There is small enhancing tumor in the bilateral foramina at L3/ L4. Compression fracture of L3 associated with approximately 5 mm of retropulsion and there is fractu re-associated moderate short segment spinal stenosis. A tiny left paracentral disc protrusion is seen at L1/L2. Bilateral adrenal gland enlargement. No other mass or adenopathy seen in the visualized abdominal or pelvic cavity. Normal Conus terminus at the level of L1. CONCLUSION: 1. 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 There a re pathologic compression fractures, severe at L3, mild of L5 and slight of T12 and L2. 2. L3 compression fracture-associated moderate spinal stenosis. 3. Tumor-associated bilateral foraminal stenosis at L3/L4 and left foraminal stenosis at L4/L5. 4. CT the chest, abdomen and pelvis with intravenous and oral contrast recommended for further evalua tion and attempted identification of primary tumor. Haroon Tillman MD on August 07, 2016 at 22:01 Board Certified Radiologist. This report was verified electronically.
[2016-08-08] VITALS: BP 143/92; PULSE 107; RESP 17; TEMP 97.5; O2SAT 93
[2016-08-08 04:00] VITALS: BP 141/92; PULSE 116; RESP 17; TEMP 98.1; O2SAT 92
[2016-08-08] MEDS: MORPHINE SULFATE 4 MG/ML INJ IV PUSH PRN ×5 (04:44→21:16)
[2016-08-08] MEDS: MAGNESIUM HYDROXIDE SUSP 30 ML CUP PO PRN (07:18)
[2016-08-08] MEDS: DOCUSATE SODIUM 100 MG CAP PO SCH ×2 (07:18→21:18)
[2016-08-08] MEDS: ENOXAPARIN SODIUM 40 MG/0.4 ML SYRINGE SQ SCH (07:18)
[2016-08-08 08:00] VITALS: BP 123/88; PULSE 103; RESP 18; TEMP 97.3; O2SAT 91
[2016-08-08] MEDS ORDERED: DIATRIZOATE MEGLUM/DIATRIZOATE SOD 9 ML CUP PO ONE (09:00)
[2016-08-08 09:29] LABS: MAGNESIUM 1.8 MG/DL (1.5-2.5); POTASSIUM 3.5 MEQ/L (3.5-5.1)
[2016-08-08 12:00] VITALS: BP 121/90; PULSE 107; RESP 18; TEMP 96; O2SAT 96
[2016-08-08] MEDS ORDERED: GADODIAMIDE PF 287 MG/ML 5 ML VIAL (for RAD MRI) IV ONE (12:37)
[2016-08-08] MEDS ORDERED: IOHEXOL 350 MG/ML 10 ML VIAL (for RAD DIAG) IV ONE ×2 (13:16→18:55)
--- NOTE | 2016-08-08 13:46 | RADRPT ---
EXAM DATE/TIME: 08/08/2016 13:10 [facility] COMPARISON: MRI LUMBAR SPINE W & W/O CONTRAST, August 07, 2016, 20:41. CT BRAIN W/O CONTRAST, September 11, 2013, 10:39 . INDICATIONS : Evaluate for mass. IV CONTRAST: 93 cc Omnipaque 350 (iohexol) IV ORAL CONTRAST: Prescribed oral contrast ingested. RADIATION DOSE: 6.37 CTDIvol (mGy) MEDICAL HISTORY : Cardiovascular disease. Hypertension. SURGICAL HISTORY : section. ENCOUNTER: Initial ACUITY: 2 weeks PAIN SCALE: 3/10 LOCATION: Bilateral lower quadrant TECHNIQUE: Volumetric scanning of the abdomen and pelvis was performed. Using automated exposure control and ad justment of the mA and/or kV according to patient size, radiation dose was kept as low as reasonably achievable to obtain optimal diagnostic quality images. FINDINGS: Imaging through the lung bases demonstrates minimal bilateral effusions and dependent atelectasis. The appearance of the liver, spleen, pancreas and kidneys is within normal limits. The examination demonstrates nodular enlargement of both adrenal glands. The left adrenal measures 2. 0 x 1.6 CM. The right adrenal measures 3.2 x 2.3 CM. The left adrenal measures approximately 64 Houns field units. The right adrenal measures approximately 78 ounces of units. This would be concerning fo r metastatic disease. MRI with chemical shift imaging could be performed for more definitive assessme nt. There is no significant retroperitoneal adenopathy. The infrarenal aorta is mildly aneurysmal at 3 cm . The visualized loops of small and large bowel in the upper abdomen are unremarkable. No free air or f ree fluid is present. Imaging through the pelvis demonstrates an abnormal appearance of the uterine fundus. The uterine fun dus measures approximately 6.1 x 5.2 cm. It is possible this represents fibroid however I cannot excl ude malignancy. There is no iliac or inguinal adenopathy. There is a large amount of stool within the descending colon, sigmoid colon and rectum suggesting pos sible constipation. Bone windowed imaging is provided. These demonstrate compression fracture of the L3 vertebral body wi th considerable surrounding soft tissue. This could suggest malignancy. In addition, there are mild c ompression fractures involving the superior endplate of L2 and T12 as well as a possible lytic lesion in T11. The appearance of the right sacral alae is abnormal as well. The there is a 4.2 x 2.5 centim eters destructive lesion in the right iliac wing. Note is made of a 3.5 x 3.0 cm destructive lesion i n the left acetabula. Evaluation of the soft tissues demonstrates a 1.9 x 2.2 cm enhancing lesion in the erector spinae mus altagracia on the right. This would be concerning for a metastatic lesion within the right erector spinae mu scle. CONCLUSION: 1. Enlargement of the uterus with an abnormal appearance measuring 6.1 x 5.2 cm. This would be concer ginny for an endometrial mass. 2. Severe compression fracture of L3 and scattered bony lesions identified within the lumbar spine an d sacrum as above. This is concerning for widespread metastatic disease to bone. 3. Focal enhancing lesion in the erector spinae muscle on the right measuring 2.2 x 1.9 cm. 4. Bilateral adrenal masses concerning for metastatic disease to the adrenal glands. Ney Ulloa MD on August 08, 2016 at 13:32 Board Certified Radiologist. This report was verified electronically.
--- NOTE | 2016-08-08 13:50 | RADRPT ---
EXAM DATE/TIME: 08/08/2016 12:23 [facility] COMPARISON: MRI LUMBAR SPINE W & W/O CONTRAST, August 07, 2016, 20:41. INDICATIONS : Metastatic disease. CONTRAST: 11 cc Omniscan (gadodiamide) IV MEDICAL HISTORY : Myocardial infarction. Hypertension. Congestive heart failure. SURGICAL HISTORY : Tonsillectomy. section. ENCOUNTER: Subsequent ACUITY: 3 day PAIN SCORE: 0/10 LOCATION: cranial TECHNIQUE: Multiplanar, multisequence MRI of the brain was performed both prior to and following the administrat ion of paramagnetic contrast. FINDINGS: CEREBRUM: The ventricles are normal for age. No evidence of midline shift, mass lesion, hemorrhage or acute in farction. No extraaxial fluid collections are seen. The pituitary gland and suprasellar cistern are normal in configuration. WHITE MATTER: No significant signal abnormalities are seen in the white matter. POSTERIOR FOSSA: The cerebellum and brainstem are intact. The 4th ventricle is midline. The cerebellopontine angle is unremarkable. The cerebellar tonsils are normal in position. DIFFUSION IMAGING: No focal areas of restricted diffusion are seen. No evidence of acute infarction. EXTRACRANIAL: The visualized portions of the orbits and paranasal sinuses are unremarkable. The examination does de monstrate fairly diffuse enhancement in the region of the clivus. This is concerning for metastatic d isease to the clivus and cribriform plate. There is a focal area of abnormal enhancement in the centr al aspect of the cervical bone. POST-CONTRAST: No abnormal areas of parenchymal or dural enhancement. No evidence of blood-brain barrier breakdown. CONCLUSION: 1. Abnormal enhancement of the clivus and cribriform plate concerning for metastatic disease the bone . 2. Focal are of abnormal enhancement in the sublingual bone again concerning for metastatic disease. 3. No definite mass identified within the brain parenchyma. Ney Ulloa MD on August 08, 2016 at 13:44 Board Certified Radiologist. This report was verified electronically.
--- NOTE | 2016-08-08 15:17 | HHI.PR ---
Subjective Remarks Hypokalemia resolved. Further workup for compression fractures seen on lumbar spine x-ray have unfortunately revealed lumbar sacral and pelvic metastatic cancer. Further testing for this is planned. Etiology for her hypokalemia may have been related to cancer. Objective Vital Signs Date Time Temp Pulse Resp B/P Pulse Ox O2 Delivery O2 Flow Rate FiO2 08/08/16 12:00 96.0 107 18 121/90 96 08/08/16 08:00 97.3 103 18 123/88 91 08/08/16 04:00 98.1 116 17 141/92 92 08/08/16 00:00 97.5 107 17 143/92 93 08/07/16 19:00 98.6 104 16 130/83 93 08/07/16 16:00 97.2 94 18 128/83 94 I/O 08/07/16 08/07/16 08/07/16 08/08/16 08/08/16 08/08/16 07:00 15:00 23:00 07:00 15:00 23:00 Intake Total 500 ml 720 ml 480 ml 480 ml Balance 500 ml 720 ml 480 ml 480 ml Intake Oral 500 ml 720 ml 480 ml 480 ml # Voids 1 3 2 3 # Bowel Movements 0 0 0 0 Result Diagram: 08/06/16 1700 08/08/16 0820 Imaging Last Impressions Brain MRI 08/08/16 0000 Signed Impressions: Service Date/Time: Monday, August 08, 2016 12:23 - CONCLUSION: 1. Abnormal enhancement of the clivus and cribriform plate concerning for metastatic disease the bone. 2. Focal are of abnormal enhancement in the sublingual bone again concerning for metastatic disease. 3. No definite mass identified within the brain parenchyma. Ney Ulloa MD Abdomen/Pelvis CT 08/08/16 0000 Signed Impressions: Service Date/Time: Monday, August 08, 2016 13:10 - CONCLUSION: 1. Enlargement of the uterus with an abnormal appearance measuring 6.1 x 5.2 cm. This would be concerning for an endometrial mass. 2. Severe compression fracture of L3 and scattered bony lesions identified within the lumbar spine and sacrum as above. This is concerning for widespread metastatic disease to bone. 3. Focal enhancing lesion in the erector spinae muscle on the right measuring 2.2 x 1.9 cm. 4. Bilateral adrenal masses concerning for metastatic disease to the adrenal glands. Ney Ulloa MD Lumbar Spine MRI 08/07/16 0000 Signed Impressions: Service Date/Time: July 20:41 - CONCLUSION: 1. 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 There are pathologic compression fractures, severe at L3, mild of L5 and slight of T12 and L2. 2. L3 compression fracture-associated moderate spinal stenosis. 3. Tumor-associated bilateral foraminal stenosis at L3/L4 and left foraminal stenosis at L4/L5. 4. CT the chest, abdomen and pelvis with intravenous and oral contrast recommended for further evaluation and attempted identification of primary tumor. Haroon Tillman MD Lumbar Spine X-Ray 08/06/16 1725 Signed Impressions: Service Date/Time: Saturday, August 06, 2016 18:01 - CONCLUSION: Nonacute appearing compression deformities, moderate to severe of L3 and slight of L5. Haroon Tillman MD Hip X-Ray 08/06/16 1638 Signed Impressions: Service Date/Time: Saturday, August 06, 2016 16:55 - CONCLUSION: 1. No acute fracture or dislocation. 2. Mild degenerative changes involving the right hip joint. Doroteo Henning MD Objective Remarks GENERAL: NAD, A&Ox3 HEAD: Normocephalic. NECK: Supple, trachea midline. No lymphadenopathy. EYES: No scleral icterus. No injection or drainage. CARDIOVASCULAR: Regular rate and rhythm without murmurs, gallops, or rubs. RESPIRATORY: Breath sounds equal bilaterally. No accessory muscle use. GASTROINTESTINAL: Abdomen soft, non-tender, nondistended. MUSCULOSKELETAL: No cyanosis, or edema. SKIN: Warm and dry. NEURO: No focal neurological deficitis. Medications and IVs Administered Medications Medications (Trade) Dose Ordered Sig/Sergio Route PRN Reason Start Time Stop Time Status Last Admin Dose Admin Acetaminophen (Tylenol) 650 mg Q4H PRN PO FEVER 08/06/16 18:45 08/07/16 00:21 Morphine Sulfate (Morphine Inj) 2 mg Q3H PRN IV PUSH pain > 5 08/07/16 02:45 08/08/16 14:32 Enoxaparin Sodium (Lovenox Inj) 40 mg Q24H SQ 08/07/16 09:00 08/08/16 07:18 Docusate Sodium (Colace) 100 mg BID PO 08/07/16 21:00 08/08/16 07:18 Magnesium Hydroxide (Milk Of Magnesia Liq) 30 ml DAILY PRN PO Constipation 08/07/16 16:45 08/08/16 07:18 A/P Problem List: (1) Hypokalemia ICD Code: E87.6 (2) Lumbosacral radiculopathy ICD Code: M54.17 Assessment and Plan Assessment and plan 7-year-old female admitted with hypokalemia and lumbar spine fractures. New finding of metastatic disease at lumbar, sacral, and pelvic bones. Hyperkalemia Resolved May have been secondary to neoplastic process Follow potassium levels Lumbar spine fractures May be pathologic based on MRI imaging Continue when necessary pain treatments Neurosurgery following Apparent metastatic disease including lumbar, sacral, and pelvic bones May have been contributory to hypokalemia Likely responsible for lumbar fractures Ordered MRI brain Ordered CAT scan of chest Ordered CAT scan of abdomen and pelvis Oncology consult DVT prophylaxis Ney Stafford MD Aug 08, 2016 15:17
[2016-08-08 16:00] VITALS: BP 102/72; PULSE 116; RESP 18; TEMP 97.8; O2SAT 92
--- NOTE | 2016-08-08 16:22 | RADRPT ---
EXAM DATE/TIME: 08/08/2016 13:10 [facility] COMPARISON: No previous studies available for comparison. INDICATIONS : Evaluate for mass. IV CONTRAST: 93 cc Omnipaque 350 (iohexol) IV RADIATION DOSE: 6.37 CTDIvol (mGy) ; Combined studies - Thorax/Abdomen/Pelvis MEDICAL HISTORY : Hypertension. Cardiovascular disease SURGICAL HISTORY : section. ENCOUNTER: Initial ACUITY: 2 weeks PAIN SCALE: 4/10 LOCATION: Bilateral lower quadrant TECHNIQUE: Volumetric scanning of the chest was performed. Using automated exposure control and adjustment of t he mA and/or kV according to patient size, radiation dose was kept as low as reasonably achievable to obtain optimal diagnostic quality images. FINDINGS: There is evidence of a left perihilar mass within the upper lobe which measures at least 3.4 x 3.3 cm raising the possibility of bronchogenic carcinoma until proven otherwise. Bilateral hilar lymphaden opathy is noted. Pretracheal, AP window, prevascular and subcarinal mediastinal lymphadenopathy is a lso noted. Scattered noncalcified pulmonary nodules are noted within the both lungs consistent with probable metastatic disease. The largest nodule on the right measures 9 mm and the largest nodule on the left measures 10 mm. There are lytic destructive lesions involving multiple ribs including the l eft sixth, seventh and eighth ribs as well as the right first, sixth, seventh and eighth ribs. Parav ertebral lytic expansile mass is noted on the right at the T6 and T7 levels. Bilateral small pleural effusions are noted. Bibasilar atelectatic changes are noted. Bilateral adrenal masses are also no aravind and measure 3.7 x 2.5 cm on the right and 2.6 x 1.5 cm on the left consistent with probable metas tatic disease to the adrenal glands. CONCLUSION: 1. Left perihilar upper lobe mass measuring 3.3 x 3.4 cm consistent with possible bronchogenic carcin mellissa. Bronchoscopy may be helpful for evaluation and possible tissue diagnosis. 2. Mediastinal and bilateral hilar lymphadenopathy likely consistent with metastatic lymphadenopathy. 3. Multiple expansile lytic lesions involving the right first, sixth, seventh and eighth ribs as well as the left sixth, seventh and eighth ribs consistent with metastatic disease to the bones. 4. Multiple noncalcified nodules within both lungs consistent with probable metastatic disease with t he largest nodule measuring 9 mm on the right and 10 mm on the left. 5. Bilateral adrenal masses also consistent with probable metastatic disease. 6. Small bilateral pleural effusions with adjacent compressive atelectasis. Doroteo Henning MD on August 08, 2016 at 15:45 Board Certified Radiologist. This report was verified electronically.
[2016-08-08 19:00] VITALS: BP 127/85; PULSE 117; RESP 15; TEMP 98.4; O2SAT 96
--- NOTE | 2016-08-08 19:39 | RADRPT ---
EXAM DATE/TIME: 08/08/2016 18:47 [facility] COMPARISON: No previous studies available for comparison. INDICATIONS : Evaluate for node on left side of neck. IV CONTRAST: 60 cc Omnipaque 350 (iohexol) IV RADIATION DOSE: 12.78 CTDIvol (mGy) MEDICAL HISTORY : Cardiovascular disease. Hypertension. SURGICAL HISTORY : section. ENCOUNTER: Initial ACUITY: 1 day PAIN SCALE: 2/10 LOCATION: Left side of neck. TECHNIQUE: Volumetric scanning of the neck was performed. Using automated exposure control and adjustment of th e mA and/or kV according to patient size, radiation dose was kept as low as reasonably achievable to obtain optimal diagnostic quality images. FINDINGS: NASOPHARYNX: The nasopharyngeal airway has a normal configuration. No mucosal thickening or mass is seen. OROPHARYNX: The intrinsic muscles of the tongue are symmetric. The tonsillar pillars are intact. The prevertebr al soft tissues are not thickened. LARYNX: The supraglottic, glottic, and infraglottic structures are intact. PARAPHARYNGEAL: The parapharyngeal space is intact. SALIVARY GLANDS: The parotid and submandibular glands are intact. LYMPH NODES: Necrotic left submandibular lymph node measuring 1.4 x 1.1 cm. 1.1 cm round low-density mass in the l eft posterior cervical region at the level of the angle of the mandible likely representing a lymph n ode. 2.3 x 1.2 cm oval low density mass in the posterior lateral superficial soft tissues on the righ t at the level of C3-C4. Also likely representing enlarged lymph node. THYROID: Homogeneous enhancement without evidence of nodule. BONES: 2.1 x 1.4 cm enhancing mass centered in the left side of the hyoid bone. Destructive bony lesion on t he right in the first posterior rib. CONCLUSION: 1. Destructive bone lesions indicating metastatic disease in the left side of the hyoid bone and righ t first rib. 2. Low density superficial soft tissue posterior cervical masses likely representing necrotic lymph n odes. Left submandibular necrotic lymph node also noted. 3. No primary malignancy identified in the head and neck. Len Quintero MD on August 08, 2016 at 19:30 Board Certified Radiologist. This report was verified electronically.
[2016-08-08] MEDS ORDERED: PAMIDRONATE INJ 90 MG in SODIUM CHLOR 0.9% 1000 ML INJ 1,000 ML IV ONE (20:00)
--- NOTE | 2016-08-08 21:55 | MB ---
cc: ARNALDO GIL M.D.,GRICEL JUNIOR,BOUCHRA Lo M.D. DATE OF CONSULTATION: 08/08/2016. CHIEF COMPLAINT AND HISTORY OF PRESENT ILLNESS: This lady was admitted to the hospital with severe pain. Over the past two months, she has had progressive pain starting in the low back and progressing to the right hip. She lives in a senior care / homeless long term, and over the past three weeks started to use a walker because of pain. On one or two occasions she has been incontinent but this is because of her inability to get to the bathroom in time as ambulation was difficult. Since being in the hospital her pain has improved somewhat. She has had an extensive series of investigations performed including an MRI of the lumbar spine that shows widespread bony metastatic disease of the lumbar spine and sacrum. There are pathologic compression fractures severe at L3, mild at L5 and slight of T12 and L2. The L3 compression fracture is associated with moderate spinal stenosis. There is tumor associated bilateral foraminal stenosis at L3-4 and at the left foraminal stenosis at L4-5. Additionally, she has had a CT scan of the abdomen and pelvis. This indicates enlargement of the uterus which is nonspecific, severe compression of L3 with scattered bony lesions throughout the lumbar spine and sacrum. There is a focal enhancing lesion in the erector spinae muscle on the right and bilateral adrenal metastases. As well, there is a 3.5 x 3.0 destructive lesion in the left acetabulum. A CT scan of the chest revealed left perihilar upper lobe mass measuring 3.3 x 3.4 cm considered possibly bronchogenic carcinoma mediastinal and bilateral hilar lymphadenopathy. Multiple expansile lytic lesions involving the right first, six, seventh and eighth ribs as well as other the ribs. Multiple nodules within both lungs consistent with metastatic disease. Small bilateral pleural effusions and bilateral adrenal metastases. This lady was recently examined by Dr. Kuhn and he has ordered a CT scan of the neck. This lady has no past history of malignancy. PAST MEDICAL AND SURGICAL HISTORY: Includes: 1. Heart failure in 2013. 2. History of hypertension. 3. She has had C-sections x3 in 1975, 1976 and 1984. FAMILY HISTORY AND SOCIAL HISTORY: She does have family who live in the area locally. She lives in a senior care. She has smoked, although she claims to have stopped approximately a month ago. She denies significant alcohol intake. REVIEW OF SYSTEMS: CONSTITUTIONAL: This lady complains of severe pain in her low back and also her right hip area. This is limited to her ambulation. This has been progressive over the past two months this has been associated with a 20-pound weight loss. She has no fevers or sweats. ALLERGIES: NONE KNOWN. HEAD, EYES, EARS, NOSE, THROAT: She denies difficulty with vision. Denies difficulty hearing. No difficulty swallowing. No loss of taste. NECK: Denies pain or decreased range of motion. RESPIRATORY: Denies shortness of breath, cough, sputum or hemoptysis. CARDIOVASCULAR: Denies chest pain, palpitations or ankle edema. GI: Denies nausea, vomiting, diarrhea, melena or bloody stool. GENITOURINARY: Denies dysuria, hematuria, has had some urgency. MUSCULOSKELETAL: Severe pain in the regions noted above. NEUROLOGIC: No history of seizures or stroke. There was a question of incontinence but it appears to be related to pain and difficulty with ambulation. ENDOCRINE: Denies diabetes or thyroid disease. PSYCHIATRIC: Denies depression or mood swings. SKIN: No lesions. PHYSICAL EXAMINATION: GENERAL: Today on exam this lady is alert and oriented. VITAL SIGNS: She has been afebrile. Pulse of 107 and regular, respiratory rate of 18, blood pressure of 102/72 and O2 sat on room air of 92%. SKIN, HEAD, EYES, EARS, NOSE, THROAT: There was no evidence of jaundice. Her conjunctivae and eyelids were normal and she had full EOMs. Inspection of the oral cavity was normal. I would did not palpate adenopathy in her head and neck or supraclavicular regions. NECK: Her trachea is midline and thyroid is not enlarged. LUNGS: Her lung bases were resonant on percussion and clear on auscultation. HEART: She had a normal first and second heart sound without murmurs, rubs or bruits and her rate and rhythm was normal. There is no clubbing, no axillary adenopathy. ABDOMEN: There are no abdominal masses or tenderness. No hepatosplenomegaly. EXTREMITIES: She was able to straight leg raise both lower limbs. NEUROLOGIC: She had no sensory deficit. DATA REVIEW: Today I have been able to review this lady's MR scans of the brain and lumbar spine as well as the CT scans of the chest, abdomen and pelvis. I have discussed these results in detail with the patient. I have told her that we believe that she has a cancer that is metastatic to bone that has caused compression fractures which in turn are putting pressure on the nerves. This damage to the bone is causing pain in conjunction with that pressure on nerves and is causing her symptoms. She will require a biopsy. It is possible this is a lung primary based on her CT chest, but she has widespread disease and a biopsy will be required (1) to confirm malignancy, and (2) to terrazzo layer helper in future treatment delivery. She has widespread bony metastatic disease throughout the rib cage, the spine and the pelvis. I believe she will require palliative radiation treatment to her lumbosacral spine as well as left acetabulum, and possibly to part of her right ilium. I have discussed radiation treatment with her. I have discussed how radiation is delivered as well as the potential side effects. I have told her that we would hope to hold off initiation of radiation treatment until we have tissue but if she has any evidence of neurologic compromise then we would start radiation treatment urgently. Although I dictated initial portion of the history that she was placed on steroids, I have since discussed this with the nurses as well as reviewing her medication list and it does not appear that she has been placed on steroids. I think with the extent of bony disease and some compression of the neural foramina and the cauda equina at the L3 level, that it would be reasonable to start her on dexamethasone initially at 4 milligrams q. 6 h while we continue to work up her disease. I strongly encourage a biopsy as soon as practical. She has multiple areas that can be biopsied in the thoracic region. There is some paraspinal disease which should be easily obtained. She has what appears to be a subcutaneous nodule on her back and I believe the radiologists can review her x-rays and tell us the easiest site to obtain tissue. I will follow her over the weekend. If there is any evidence of neurologic decompensation, I would ask that her physicians contact me so that we could start treatment on an immediate palliative basis. Otherwise, we will wait for her workup to be complete. Thank you for asking us to see this lady. MD JULIANNE Gasca/SKYE /6:48 PM /9:43 PM MTDKatie
[2016-08-09] VITALS: BP 123/86; PULSE 111; RESP 16; TEMP 97.8; O2SAT 95
[2016-08-09 04:00] VITALS: BP 136/81; PULSE 90; RESP 17; TEMP 97.9; O2SAT 95
[2016-08-09] MEDS: MORPHINE SULFATE 4 MG/ML INJ IV PUSH PRN ×4 (04:32→20:45)
[2016-08-09 08:00] VITALS: BP 119/83; PULSE 110; RESP 18; TEMP 97.6; O2SAT 93
[2016-08-09] MEDS: ENOXAPARIN SODIUM 40 MG/0.4 ML SYRINGE SQ SCH (08:28)
[2016-08-09] MEDS: DOCUSATE SODIUM 100 MG CAP PO SCH ×2 (08:29→20:45)
--- NOTE | 2016-08-09 09:30 | HHI.PR ---
Subjective Remarks Further imaging reveals evidence of metastasis at the hyoid bone, ribs, cervical soft tissue, submandibular soft tissue, lungs, adrenal glands, skull, and endometrium. This is in addition to metastatic disease initially found lumbar spine, sacrum, pelvis. Suspicion for primary lung or endometrium. Plan for biopsy. Objective Vital Signs Date Time Temp Pulse Resp B/P Pulse Ox O2 Delivery O2 Flow Rate FiO2 08/09/16 08:00 97.6 110 18 119/83 93 08/09/16 04:00 97.9 90 17 136/81 95 08/09/16 00:00 97.8 111 16 123/86 95 08/08/16 19:00 98.4 117 15 127/85 96 08/08/16 16:00 97.8 116 18 102/72 92 08/08/16 12:00 96.0 107 18 121/90 96 I/O 08/08/16 08/08/16 08/08/16 08/09/16 08/09/16 08/09/16 07:00 15:00 23:00 07:00 15:00 23:00 Intake Total 480 ml 480 ml 480 ml 240 ml Output Total 500 ml Balance 480 ml -20 ml 480 ml 240 ml Intake Oral 480 ml 480 ml 480 ml 240 ml Output Urine Total 500 ml # Voids 3 2 3 4 # Bowel Movements 0 1 0 0 Result Diagram: 08/06/16 1700 08/08/16 0820 Objective Remarks GENERAL: NAD, A&Ox3 HEAD: Normocephalic. NECK: Supple, trachea midline. No lymphadenopathy. EYES: No scleral icterus. No injection or drainage. CARDIOVASCULAR: Regular rate and rhythm without murmurs, gallops, or rubs. RESPIRATORY: Breath sounds equal bilaterally. No accessory muscle use. GASTROINTESTINAL: Abdomen soft, non-tender, nondistended. MUSCULOSKELETAL: No cyanosis, or edema. SKIN: Warm and dry. NEURO: No focal neurological deficitis. A/P Problem List: (1) Hypokalemia ICD Code: E87.6 (2) Lumbosacral radiculopathy ICD Code: M54.17 Assessment and Plan Assessment and plan 61-year-old female admitted with hypokalemia and lumbar spine fractures. Metastatic disease at lumbar spine, sacrum, pelvic bones, scalp, adrenals, lung , submandibular soft tissue, cervical soft tissue, ribs, hyoid bone, and endometrium. Biopsy plan. Follow potassium level with recheck to ensure no recurrence of hypokalemia. Hyperkalemia Resolved May have been secondary to neoplastic process Follow potassium levels Lumbar spine fractures May be pathologic based on MRI imaging Continue when necessary pain treatments Neurosurgery following Diffuse metastatic disease Workup to determine primary cause May have been contributory to hypokalemia Likely responsible for lumbar fractures Ordered MRI brain Ordered CAT scan of chest Ordered CAT scan of abdomen and pelvis Oncology following DVT prophylaxis Ney Stafford MD Aug 09, 2016 9:30 am
--- NOTE | 2016-08-09 09:31 | PD.ONC.PN ---
Subjective Subjective Remarks Afebrile overnight. "Im just so tired". Has been getting OOB with assistance to use the bathroom. Pain overall is improved "It comes and goes". Objective Data Date Time Temp Pulse Resp B/P Pulse Ox O2 Delivery O2 Flow Rate FiO2 08/09/16 08:00 97.6 110 18 119/83 93 08/09/16 04:00 97.9 90 17 136/81 95 08/09/16 00:00 97.8 111 16 123/86 95 08/08/16 19:00 98.4 117 15 127/85 96 08/08/16 16:00 97.8 116 18 102/72 92 08/08/16 12:00 96.0 107 18 121/90 96 Result Diagram: 08/06/16 1700 08/08/16 0820 Laboratory Results Laboratory Tests Test 08/08/16 20:26 Carcinoembryonic Antigen 705.2 NG/ML Imaging Studies Last [address] 08/08/16 0000 Signed Impressions: Service Date/Time: Monday, August 08, 2016 18:47 - CONCLUSION: 1. Destructive bone lesions indicating metastatic disease in the left side of the hyoid bone and right first rib. 2. Low density superficial soft tissue posterior cervical masses likely representing necrotic lymph nodes. Left submandibular necrotic lymph node also noted. 3. No primary malignancy identified in the head and neck. Len Quintero MD Chest CT 08/08/16 0000 Signed Impressions: Service Date/Time: Monday, August 08, 2016 13:10 - CONCLUSION: 1. Left perihilar upper lobe mass measuring 3.3 x 3.4 cm consistent with possible bronchogenic carcinoma. Bronchoscopy may be helpful for evaluation and possible tissue diagnosis. 2. Mediastinal and bilateral hilar lymphadenopathy likely consistent with metastatic lymphadenopathy. 3. Multiple expansile lytic lesions involving the right first, sixth, seventh and eighth ribs as well as the left sixth, seventh and eighth ribs consistent with metastatic disease to the bones. 4. Multiple noncalcified nodules within both lungs consistent with probable metastatic disease with the largest nodule measuring 9 mm on the right and 10 mm on the left. 5. Bilateral adrenal masses also consistent with probable metastatic disease. 6. Small bilateral pleural effusions with adjacent compressive atelectasis. Doroteo Henning MD Brain MRI 08/08/16 0000 Signed Impressions: Service Date/Time: Monday, August 08, 2016 12:23 - CONCLUSION: 1. Abnormal enhancement of the clivus and cribriform plate concerning for metastatic disease the bone. 2. Focal are of abnormal enhancement in the sublingual bone again concerning for metastatic disease. 3. No definite mass identified within the brain parenchyma. Ney Ulloa MD Abdomen/Pelvis CT 08/08/16 0000 Signed Impressions: Service Date/Time: Monday, August 08, 2016 13:10 - CONCLUSION: 1. Enlargement of the uterus with an abnormal appearance measuring 6.1 x 5.2 cm. This would be concerning for an endometrial mass. 2. Severe compression fracture of L3 and scattered bony lesions identified within the lumbar spine and sacrum as above. This is concerning for widespread metastatic disease to bone. 3. Focal enhancing lesion in the erector spinae muscle on the right measuring 2.2 x 1.9 cm. 4. Bilateral adrenal masses concerning for metastatic disease to the adrenal glands. Ney Ulloa MD Administered Medications Medications (Trade) Dose Ordered Sig/Sergio Route PRN Reason Start Time Stop Time Status Last Admin Dose Admin Acetaminophen (Tylenol) 650 mg Q4H PRN PO FEVER 08/06/16 18:45 08/07/16 00:21 Morphine Sulfate (Morphine Inj) 2 mg Q3H PRN IV PUSH pain > 5 08/07/16 02:45 08/09/16 08:28 Enoxaparin Sodium (Lovenox Inj) 40 mg Q24H SQ 08/07/16 09:00 08/09/16 08:28 Docusate Sodium (Colace) 100 mg BID PO 08/07/16 21:00 08/08/16 07:18 Magnesium Hydroxide 30 ml 30 ml DAILY PRN PO Constipation 08/07/16 16:45 08/08/16 07:18 Pamidronate Disodium/Sodium Chloride (Aredia Inj/NS 1000 ml Inj) 1,000 ml @ 42 mls/hr ONCE ONCE IV 08/08/16 20:00 08/09/16 19:48 08/08/16 21:16 Objective Remarks GENERAL: Disheveled older female, lying in bed in no distress. SKIN: Warm and dry. HEAD: Normocephalic. EYES: No injection or drainage. NECK: L submental + lymphadenopathy. R posterior soft mobile mass. L post auricular somewhat immobile nodule. CARDIOVASCULAR: +S1/S2. RESPIRATORY: Clear anteriorly. Breathing unlabored. GASTROINTESTINAL: Abdomen soft, non-tender, nondistended. EXTREMITIES: No edema. MUSCULOSKELETAL: Generalized weakness NEUROLOGICAL: Alert, Normal speech, equal back closer strength. Assessment/Plan Assessment 61-year-old female admitted with generalized weakness and pain to the point that she was urinating and defecating herself. Workup in the emergency room shows widespread bony metastatic disease with a likely lung primary. Plan 1. The patient is given pamidronate for widespread bony metastasis. 2. We will attempt to get a biopsy of the left submental node. 3. Her pain is more controlled, she will need strengthening therapy prior to chemotherapy. 4. Her living situation is quite poor, therefore we will need case management's help in order to facilitate transportation to outpatient appointments once discharged. Attending Statement The exam, history, and the medical decision-making described in the above note were completed with the assistance of the mid-level provider. I reviewed and agree with the findings presented. I attest that I had a [id number] encounter with the patient on the same day, and personally performed and documented my assessment and findings in the medical record. patient doing better and less painful. I spoke with Dr. Armstrong and he will excise one of the nodes in the neck on Thursday to establish a diagnosis. Once this is done can proceed with xrt to be followed by some form of systemic tx whlich will depend on pathology and molecular studies. nothing else to do now. calcium better. Crystal Barr Aug 09, 2016 09:31 Jae Kuhn MD Aug 09, 2016 18:21
--- NOTE | 2016-08-09 11:15 | HHI.NSPN ---
(Judson Gauthier) History Chief Complaint: Back pain (Judson Gauthier) Interval History 08/07: 61-year-old female states that approximately a month ago she developed onset of progressive severe low back pain . She does not recall any definite cause of the symptoms. She states she may have been lifting some boxes and strained her back. She states that she was seen in the emergency room for medical evaluation at that time. Her EMR indicates that she was seen on complaining of approximately 2 weeks of low back pain after doing some stretching. She was released with baclofen and a Lidoderm patch. She states that she had to start using a walker due to persistent pain over the past month , and has been somewhat unsteady with her gait. She fell a week ago, and since then has had significant increase low back pain with radiation to primarily the right lateral hip and thigh. She has been mostly bedridden since she fell, unable to stand up even with a walker. She has had episodes of loss of bowel and bladder control, but attributes these to pain and not being able to get to the bathroom rather than actual incontinence. No complaint of significant numbness in the lower extremities. No pain which is some numbness in the upper extremities 08/09: The patient is awake and alert this morning. She says she is doing good although she does endorse pain to the back and a slight headache. (Judson Gauthier) System Review Comments Constitutional: Patient denies any fever or chills. Respiratory: Patient denies any shortness of breath or productive cough. Cardiovascular: Patient denies any chest pain, palpitations or irregular heartbeat. Gastrointestinal: Patient denies any abdominal pain, nausea, vomiting or incontinence of stool. Genitourinary: Patient denies any incontinence of urine. Musculoskeletal: Patient complains of back pain and joint aches. She denies any other pain to the arms or legs. Neurologic: Patient states she does have a slight headache to the right side of her head. She denies any dizziness, numbness or tingling. (Judson Gauthier) Exam Results Vital Signs Date Time Temp Pulse Resp B/P Pulse Ox O2 Delivery O2 Flow Rate FiO2 08/09/16 08:00 97.6 110 18 119/83 93 08/06/16 21:00 Room Air Intake and Output 08/08/16 08/08/16 08/09/16 08:00 16:00 00:00 Intake Total 480 ml 480 ml 480 ml Output Total 500 ml Balance 480 ml -20 ml 480 ml (Judson Gauthier) Physical Examination GENERAL: Awake & alert, normal affect, no apparent distress. INTEGUMENTARY: Skin warm & dry. Multiple healed wounds to legs, no rashes, ecchymoses or other lesions. HEENT: Normocephalic, atraumatic. NECK: Full AROM, no JVD, trachea midline. RESPIRATORY: CTAB w/o W/R/R, equal excursion, nonlaboured, on RA. CARDIOVASCULAR: S1S2 w/regular but fast rate w/o M/G/R, radial & pedal pulses 2 + bilaterally, cap refill < 2 sec, no pedal edema. GASTROINTESTINAL: Abdomen soft, nontender, positive bowel sounds. MUSCULOSKELETAL: Mild right lateral hip TTP. Mild discomfort to right hip with straight leg raise at 45. TTP at thoracolumbar junction and along lumbar spine. Deformity noted to proximal right tibia NTTP. NEUROLOGICAL: AAOx3 Speech clear & appropriate Sensation intact to light touch to all extremities Motor strength LLE 4+ to 5/5, RLE 4/5 except quadricep is 3/5 (Judson Gauthier) Lab, Micro, Other Results Allergies Coded Allergies Type Severity Reaction Last Updated Verified No Known Allergies 07/10/16 Yes Recent Impressions Neck CT 08/08/16 0000 Signed Impressions: Service Date/Time: Monday, August 08, 2016 18:47 - CONCLUSION: 1. Destructive bone lesions indicating metastatic disease in the left side of the hyoid bone and right first rib. 2. Low density superficial soft tissue posterior cervical masses likely representing necrotic lymph nodes. Left submandibular necrotic lymph node also noted. 3. No primary malignancy identified in the head and neck. Len Quintero MD Chest CT 08/08/16 0000 Signed Impressions: Service Date/Time: Monday, August 08, 2016 13:10 - CONCLUSION: 1. Left perihilar upper lobe mass measuring 3.3 x 3.4 cm consistent with possible bronchogenic carcinoma. Bronchoscopy may be helpful for evaluation and possible tissue diagnosis. 2. Mediastinal and bilateral hilar lymphadenopathy likely consistent with metastatic lymphadenopathy. 3. Multiple expansile lytic lesions involving the right first, sixth, seventh and eighth ribs as well as the left sixth, seventh and eighth ribs consistent with metastatic disease to the bones. 4. Multiple noncalcified nodules within both lungs consistent with probable metastatic disease with the largest nodule measuring 9 mm on the right and 10 mm on the left. 5. Bilateral adrenal masses also consistent with probable metastatic disease. 6. Small bilateral pleural effusions with adjacent compressive atelectasis. Doroteo Henning MD Brain MRI 08/08/16 0000 Signed Impressions: Service Date/Time: Monday, August 08, 2016 12:23 - CONCLUSION: 1. Abnormal enhancement of the clivus and cribriform plate concerning for metastatic disease the bone. 2. Focal are of abnormal enhancement in the sublingual bone again concerning for metastatic disease. 3. No definite mass identified within the brain parenchyma. Ney Ulloa MD Abdomen/Pelvis CT 08/08/16 0000 Signed Impressions: Service Date/Time: Monday, August 08, 2016 13:10 - CONCLUSION: 1. Enlargement of the uterus with an abnormal appearance measuring 6.1 x 5.2 cm. This would be concerning for an endometrial mass. 2. Severe compression fracture of L3 and scattered bony lesions identified within the lumbar spine and sacrum as above. This is concerning for widespread metastatic disease to bone. 3. Focal enhancing lesion in the erector spinae muscle on the right measuring 2.2 x 1.9 cm. 4. Bilateral adrenal masses concerning for metastatic disease to the adrenal glands. Ney Ulloa MD Lumbar Spine MRI 08/07/16 0000 Signed Impressions: Service Date/Time: July 20:41 - CONCLUSION: 1. 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 There are pathologic compression fractures, severe at L3, mild of L5 and slight of T12 and L2. 2. L3 compression fracture-associated moderate spinal stenosis. 3. Tumor-associated bilateral foraminal stenosis at L3/L4 and left foraminal stenosis at L4/L5. 4. CT the chest, abdomen and pelvis with intravenous and oral contrast recommended for further evaluation and attempted identification of primary tumor. Haroon Tillman MD Lumbar Spine X-Ray 08/06/16 1725 Signed Impressions: Service Date/Time: Saturday, August 06, 2016 18:01 - CONCLUSION: Nonacute appearing compression deformities, moderate to severe of L3 and slight of L5. Haroon Tillman MD Hip X-Ray 08/06/16 1638 Signed Impressions: Service Date/Time: Saturday, August 06, 2016 16:55 - CONCLUSION: 1. No acute fracture or dislocation. 2. Mild degenerative changes involving the right hip joint. Doroteo Henning MD //////// 06:00 18:00 06:00 18:00 06:00 18:00 Intake Total 500 ml 720 ml 960 ml 480 ml 720 ml Output Total 500 ml Balance 500 ml 720 ml 960 ml -20 ml 720 ml Intake Oral 500 ml 720 ml 960 ml 480 ml 720 ml Output Urine Total 500 ml # Voids 1 3 5 2 7 # Bowel Movements 0 0 0 1 0 Laboratory Tests Test 08/06/16 08/06/16 08/06/16 08/07/16 17:00 20:30 23:54 08:19 White Blood Count 12.2 TH/MM3 Red Blood Count 3.65 MIL/MM3 Hemoglobin 12.1 GM/DL Hematocrit 36.4 % Mean Corpuscular Volume 99.8 FL Mean Corpuscular Hemoglobin 33.2 PG Mean Corpuscular Hemoglobin 33.2 % Concent Red Cell Distribution Width 15.2 % Platelet Count 235 TH/MM3 Mean Platelet Volume 9.3 FL Neutrophils (%) (Auto) 77.9 % Lymphocytes (%) (Auto) 15.0 % Monocytes (%) (Auto) 6.1 % Eosinophils (%) (Auto) 0.3 % Basophils (%) (Auto) 0.7 % Neutrophils # (Auto) 9.5 TH/MM3 Lymphocytes # (Auto) 1.8 TH/MM3 Monocytes # (Auto) 0.7 TH/MM3 Eosinophils # (Auto) 0.0 TH/MM3 Basophils # (Auto) 0.1 TH/MM3 CBC Comment DIFF FINAL Differential Comment Urine Color YELLOW Urine Turbidity HAZY Urine pH 6.0 Urine Specific [place] 1.024 Urine Protein 30 mg/dL Urine Glucose (UA) NEG mg/dL Urine Ketones 40 mg/dL Urine Occult Blood TRACE Urine Nitrite NEG Urine Bilirubin NEG Urine Urobilinogen 4.0 MG/DL Urine Leukocyte Esterase NEG Urine RBC 3 /hpf Urine WBC 4 /hpf Urine Squamous Epithelial 1 /hpf Cells Urine Bacteria RARE /hpf Urine Mucus MANY /lpf Microscopic Urinalysis Comment CULT NOT INDICATED Sodium Level 144 MEQ/L 146 MEQ/L 146 MEQ/L 143 MEQ/L Potassium Level 2.2 MEQ/L 3.2 MEQ/L 2.7 MEQ/L 3.5 MEQ/L Chloride Level 102 MEQ/L 107 MEQ/L 108 MEQ/L 108 MEQ/L Carbon Dioxide Level 27.1 MEQ/L 29.4 MEQ/L 27.8 MEQ/L 24.1 MEQ/L Anion Gap 15 MEQ/L 10 MEQ/L 10 MEQ/L 11 MEQ/L Blood Urea Nitrogen 27 MG/DL 27 MG/DL 27 MG/DL 24 MG/DL Creatinine 0.74 MG/DL 0.81 MG/DL 0.64 MG/DL 0.46 MG/DL Estimat Glomerular Filtration 80 ML/MIN 72 ML/MIN 95 ML/MIN 139 ML/MIN Rate Random Glucose 115 MG/DL 210 MG/DL 150 MG/DL 105 MG/DL Calcium Level 12.2 MG/DL 10.5 MG/DL 9.9 MG/DL 10.0 MG/DL Protein Corrected Calcium 12.4 MG/DL Total Bilirubin 1.1 MG/DL Aspartate Amino Transf 36 U/L (AST/SGOT) Alanine Aminotransferase 20 U/L (ALT/SGPT) Alkaline Phosphatase 297 U/L Total Protein 6.9 GM/DL Albumin 3.2 GM/DL Test 08/07/16 08/08/16 08/08/16 12:21 08:20 20:26 Sodium Level 141 MEQ/L 143 MEQ/L Potassium Level 3.4 MEQ/L 3.5 MEQ/L Chloride Level 104 MEQ/L 104 MEQ/L Carbon Dioxide Level 25.1 MEQ/L 31.0 MEQ/L Anion Gap 12 MEQ/L 8 MEQ/L Blood Urea Nitrogen 23 MG/DL 17 MG/DL Creatinine 0.48 MG/DL 0.60 MG/DL Estimat Glomerular Filtration 132 ML/MIN 102 ML/MIN Rate Random Glucose 113 MG/DL 129 MG/DL Calcium Level 10.1 MG/DL 9.2 MG/DL Phosphorus Level 2.6 MG/DL Magnesium Level 1.8 MG/DL Carcinoembryonic Antigen 705.2 NG/ML Vital Signs Date Time Temp Pulse Resp B/P Pulse Ox O2 Delivery O2 Flow Rate FiO2 08/09/16 08:00 97.6 110 18 119/83 93 08/09/16 04:00 97.9 90 17 136/81 95 08/09/16 00:00 97.8 111 16 123/86 95 08/08/16 19:00 98.4 117 15 127/85 96 08/08/16 16:00 97.8 116 18 102/72 92 08/08/16 12:00 96.0 107 18 121/90 96 08/08/16 08:00 97.3 103 18 123/88 91 08/08/16 04:00 98.1 116 17 141/92 92 08/08/16 00:00 97.5 107 17 143/92 93 08/07/16 19:00 98.6 104 16 130/83 93 08/07/16 16:00 97.2 94 18 128/83 94 08/07/16 12:00 96.0 100 18 132/75 96 08/07/16 08:00 97.1 97 18 159/96 95 08/07/16 04:00 97.3 90 16 142/80 96 08/07/16 00:00 96.3 103 16 142/68 98 08/06/16 22:01 97.9 88 20 183/87 95 08/06/16 21:00 104 16 128/77 97 Room Air 08/06/16 20:04 100 18 115/71 99 Room Air 08/06/16 18:30 100 17 159/94 98 Room Air 08/06/16 17:42 101 18 144/83 97 Room Air 08/06/16 14:30 98.1 120 18 98/66 98 Room Air (Judson Gauthier) Medical Decision Making Impression and Plan Impression: 1. Approximately 50% L3 and minimal L5 compression fractures. 2. Question of mild right L3-4 motor deficit MRI lumbar spine demonstrates widespread bony metastatic disease with pathological compressions fractures of L3 (severe), L5 (mild) and T12 & L2 (both slight); moderate spinal stenosis at L3; bilateral L3-4 and left L4-5 foraminal stenosis r/t tumor MRI brain demonstrates abnormal enhancemen of the clivus & cribiform plate and the sublingual bone concerning for metatstatic disease, no definite brain mass noted CT chest, abdomen & pelvis demonstrate possible bronchogenic carcinoma and probable metatstaic disease CT neck demonstrates destructive bone lesions indicating metatstatic disease of the left side of the hyoid bone and the right first rib and probable necrotic lymph nodes Multiple pathologic compression fractures r/t metatstatic disease Stable neurolgical function Plan: Continue conservative treatment for the lumbar fractures. PT eval & tx Mobilise patient w/assistance OOB w/LSO brace (Judson Gauthier) Attending Statement I have personally seen and examined the patient on the date of this note. Pertinent documentation and study results have been reviewed by the undersigned. I have personally developed the treatment plan and performed medical decision making. Agree with findings, exam, and treatment plan as noted above. Right lower extremity pain has improved in the past couple of days. She now has 4/5 strength in right quadriceps, otherwise 5/5 throughout the right and left lower extremity. MRI brain images reveal lesions along the clivus and cribriform plate. No intracranial process. Continuing to mobilize out of bed with brace. Patient is not a good candidate for surgical intervention for possible right lumbar radicular deficit. Metastatic disease with poor bone quality will make it difficult to achieve stabilization. Discussed with oncology on 08/08/16. Radiation oncology notes reviewed Anticipate biopsy on 08/11/16 with radiation treatments to the spine to follow. Discussed with the patient today and all questions answered (Rojas Stephens MD) Judson Gauthier Aug 09, 2016 11:15 Rojas Stephens MD Aug 09, 2016 14:40
[2016-08-09] MEDS: oxyCODONE/ACETAMINOPHEN 5 MG/325 MG TAB PO PRN ×3 (11:26→23:08)
[2016-08-09 12:00] VITALS: BP 106/75; PULSE 110; RESP 18; TEMP 96.6; O2SAT 92
[2016-08-09 12:40] LABS: HEMATOCRIT 31.2 % (35.0-46.0); MEAN CELL VOLUME 100.6 FL (80.0-100.0); MEAN CORPUSCULAR HEMOGLOBIN 34.4 PG (27.0-34.0); MEAN CORPUSCULAR HGB CONC 34.2 % (32.0-36.0); PLATELET COUNT 186 TH/MM3 (150-450); RED CELL DISTRIBUTION WIDTH 15.5 % (11.6-17.2); REVIEW FLAG FINAL; WHITE BLOOD COUNT 10.7 TH/MM3 (4.0-11.0)
--- NOTE | 2016-08-09 12:49 | MB ---
cc: MANISH WILLS M.D. DATE OF CONSULTATION: 08/09/2016 REASON FOR CONSULTATION: His excisional biopsy of submandibular node. BRIEF HISTORY: This is an unfortunate 61-year-old woman who for the past month has been experiencing increasing pain of the right hip, the right shoulder, the lower back. She has been using a walker to help her ambulate. She is a long-time smoker. She underwent evaluation is found to have abnormalities in a left lung with multiple bony metastasis, bilateral adrenal metastases and large left submandibular and right posterior cervical lymph nodes. She has been seen by medical oncology and requests been made for tissue diagnosis and biopsy of the submandibular node was requested. ALLERGIES The patient has no known drug allergies. PAST MEDICAL HISTORY: Her past history is significant for in 2014 been transported emergently to the hospital for congestive heart failure and hypertension. She says she has not seen a clam shucking machine tender and does not take any medications, she just takes ibuprofen for pain. PAST SURGICAL HISTORY: She has had three prior C-sections as far as her only known. Surgeries. SOCIAL HISTORY: She is a smoker. She denies alcohol abuse. Denies HIV or hepatitis risk factors. FAMILY HISTORY: Family history is significant with her mother with the pacemaker and a history of uterine cancer in an older sister with a history of colon cancer. REVIEW OF SYSTEMS She does wear corrective lens for vision. She denies primary lung disorder. She has had a history of congestive heart failure. She denies known liver or kidney disorders. Denies history of diabetes, thyroid gland problems. She has no history of strokes or seizures. PHYSICAL EXAMINATION: IN GENERAL: Physical examination shows a middle-aged woman who is in no acute distress. She is very pleasant and cooperative throughout the examination. VITAL SIGNS: Her temperature is 97.6, pulse 110, respiratory rate 18, blood pressure 119/83 her o2 saturations are 93%. HEAD, EYES, EARS, NOSE, AND THROAT: She is normocephalic, atraumatic. Her irises abnormally shaped in the right eye. The pupils were round and sluggish reactive to light. Her sclerae are anicteric. Oropharynx demonstrates poor dentition. She has slightly dry mucous membranes. NECK: Her neck shows a midline trachea. No jugular distension and no carotid bruits. She does have palpable fullness in the left submandibular area that easily palpable 2-3 cm subcutaneous nodule in the right posterior cervical area. I do not palpate any enlarged supraclavicular lymphadenopathy. LUNGS: Her lung sounds anteriorly are distant but clear and equal. HEART: heart sounds show mild sinus tachycardia without obvious murmur or gallop. BREAST/GENITALIA/RECTAL EXAMINATIONS: Deferred. ABDOMEN: Her abdomen is soft, nondistended, nontender. She has a healed infraumbilical midline scar from prior C-sections. There are no obvious hernias. EXTREMITIES: Her extremities show no evidence of edema. She has equal radial pulses. NEUROLOGICALLY: She is awake and alert. She has equal bilateral senior mobile web developer strength and no gross motor or sensory deficit. LABORATORY FINDINGS: The labs showed hemoglobin of 12.1, with a platelet count of 235, her potassium 35 her creatinine 0.6. CEA was elevated 705.2. Urinalysis showed multiple findings but a culture was not indicated. IMAGING STUDIES: She has had multiple imaging studies which show basically show what appears to be a primary lung cancer in the left lung with diffuse bony metastatic disease, disease in the bilateral adrenals and the lymphadenopathy is discussed above in the neck. ASSESSMENT/PLAN: Assessment is apparent primary lung cancer with diffuse metastatic disease. Tissue biopsy has been requested by medical oncology, Dr. Kuhn. I believe the subcutaneous palpable mass in the posterior right and cervical area is going to provide the easiest access for tissue to be removed with the least amount of her risk. I did discuss with the patient the small risks of bleeding or infection and incisional scar. She understands and wishes to proceed with the procedure which is being added onto the schedule for Thursday. MD SUSANNE Aviles/hilda /10:52 AM /12:38 PM
[2016-08-09 12:50] LABS: BICARBONATE 29.1 MEQ/L (21.0-32.0); POTASSIUM 3.6 MEQ/L (3.5-5.1)
[2016-08-09 15:50] VITALS: BP 115/77; PULSE 110; RESP 18; TEMP 97.9; O2SAT 92
--- NOTE | 2016-08-09 18:49 | MB ---
cc: GRICEL BOWLING DATE OF CONSULTATION: 08/08/2016. REASON FOR CONSULTATION: Patient with evidence metastatic disease to lumbosacral spine and a lung mass. PATIENT PROFILE: The patient is 61-year white female. She has been twice and twice. She has two daughters and a son. She has smoked one pack of cigarettes per day for many years. She does not drink alcohol. She has lived in a [facility] for the past five years, which is provided by the [facility]. HISTORY OF PRESENT ILLNESS: The patient is a 61-year-old female. I dictated her history and physical yesterday, and for reasons unclear, there were problems with payment processor and therefore this is dictated today but refers to the visit of July. The patient was well until about eight weeks ago. She developed pain in the lower back. The pain became progressive and was eventually excruciating. She went to the emergency room and underwent evaluation and was initially felt to have a benign process. She subsequently returned to the emergency room on 08/07 because of worsening pain and urinary incontinence. It was very difficult for her to walk because of the pain. She underwent imaging studies. On 08/06/2016, she had an x-ray of the lumbosacral spine showing moderate to severe loss in height of the L3 vertebral body. This was followed by a lumbar spine MRI showing widespread metastatic disease to the lumbar spine, sacrum and visualized bony pelvis. There are pathologic compression fractures severe at L3, mild at L5 and slight at T12 and L2. The L3 compression fracture caused moderate spinal stenosis. She had a subsequent CT scan of the chest on 08/08 showing a left perihilar upper lobe mass measuring 3.4 cm consistent with a primary lung malignancy. She has mediastinal and bilateral hilar adenopathy. She has multiple expansile lytic lesions throughout the right first 6th, 7th and 8th ribs as well as the left 6th, 7th and 8th ribs consistent with metastatic disease. She has bilateral adrenal masses. She has small bilateral effusions. A CT scan of the abdomen and pelvis on 08/08 shows enlargement of the uterus with an abnormal appearance measuring 6.1 cm and this was of concern for a possible endometrial mass. She has a severe compression fracture at L3. She had an enhancing lesion in the erector spinae muscle on the right measuring 2.2 cm. She has bilateral adrenal metastases. LABORATORY STUDIES: On 08/06, hemoglobin 12, white count 12,000 and platelets 233,000. Lytes, BUN, creatinine unremarkable. I had ordered a CEA, which was done on 08/08, and the value is 705. The patient's major complaints have been lower back pain and some pain in the hips. PAST SURGICAL HISTORY: . PAST MEDICAL HISTORY: No previous medical problems. MEDICATIONS PRIOR TO ADMISSION: 1. Ibuprofen. 2. Muscle relaxants. ALLERGIES: None. FAMILY HISTORY: Mother living and had breast cancer. Father of an accident. The patient has three sisters who are well. REVIEW OF SYSTEMS: No change in vision or hearing. No chest pain, palpitations, no shortness of breath. No blood in stool. Appetite poor. 20-pound weight loss. She has had slight urinary incontinence. She has pain in the lower back and pelvic bones and hips. ros otherwise unremarkable. PHYSICAL EXAMINATION: GENERAL: Physical examination reveals a female who appears older than stated age and uncomfortable. She needed a assistance in sitting up. VITAL SIGNS: Blood pressure 115/70, respiratory rate 18, pulse 110, afebrile. O2 sat 92%. HEAD, EYES, EARS, NOSE, THROAT: Head is normocephalic. The sclerae and conjunctivae are normal. There is a malignant fixed lymph node involving the angle of the mandible on the left. More posteriorly behind the ear there is about a 1 to 2 cm subcutaneous mass which also is firm. In the right posterior cervical area, there is a soft tissue mass about 2 cm which is not firm. OROPHARYNX: There are no mucosal lesions. HEART: Regular rhythm. LUNGS: Clear. BREASTS: Without masses. ABDOMEN: Without hepatosplenomegaly, masses or tenderness. EXTREMITIES: No edema. MUSCULOSKELETAL: There is muscle wasting. NEUROLOGIC: Generalized but not focal weakness. BACK: She does have tenderness over the lumbosacral spine. ASSESSMENT The patient is a 61-year female. She has a longstanding history of tobacco use. She appears to have a primary lung cancer metastatic to bone, adrenals and soft tissue. PLAN: 1. CT scan of the neck. 2. Surgical consultation for resection of a malignant lymph node in the neck to establish a diagnosis and adequate tissue to do molecular studies. 3. A consultation with radiation oncology. I suspect she will require radiation to at least the lumbosacral spine 4. Once the pathology is back, I can recommend systemic therapy. 5. At the time of the visit, I spoke at length with her sister as I believe that this patient will need help with transportation and living arrangements. She has lived in a m[facility] for the past five years. Thank you very much for the consultation. MD DELVIS Choi/SKYE /6:15 PM /6:37 PM MTDKatie
[2016-08-09 20:00] VITALS: BP 99/65; PULSE 110; RESP 16; TEMP 97.9; O2SAT 94
[2016-08-10] VITALS: BP 98/61; PULSE 99; RESP 16; TEMP 97.5; O2SAT 95
[2016-08-10] MEDS: MORPHINE SULFATE 4 MG/ML INJ IV PUSH PRN (02:06)
[2016-08-10 04:00] VITALS: BP 110/68; PULSE 103; RESP 16; TEMP 97.2; O2SAT 94
[2016-08-10] MEDS: oxyCODONE/ACETAMINOPHEN 5 MG/325 MG TAB PO PRN ×4 (06:19→18:44)
[2016-08-10 07:06] LABS: HEMATOCRIT 28.7 % (35.0-46.0); MEAN CELL VOLUME 100.5 FL (80.0-100.0); MEAN CORPUSCULAR HEMOGLOBIN 34.1 PG (27.0-34.0); MEAN CORPUSCULAR HGB CONC 33.9 % (32.0-36.0); PLATELET COUNT 179 TH/MM3 (150-450); RED BLOOD COUNT 2.86 MIL/MM3 (4.00-5.30); RED CELL DISTRIBUTION WIDTH 15.3 % (11.6-17.2); REVIEW FLAG FINAL; WHITE BLOOD COUNT 9.9 TH/MM3 (4.0-11.0)
[2016-08-10 07:33] LABS: BICARBONATE 31.8 MEQ/L (21.0-32.0); POTASSIUM 3.4 MEQ/L (3.5-5.1)
[2016-08-10 08:00] VITALS: BP 113/77; PULSE 107; RESP 18; TEMP 97; O2SAT 95
[2016-08-10] MEDS ORDERED: POTASSIUM CHLORIDE 10 MEQ CONTROLLED RELEASE TAB PO ONE (08:30)
--- NOTE | 2016-08-10 09:41 | HHI.NSPN ---
(Judson Gauthier) History Chief Complaint: Back pain (Judson Gauthier) Interval History 08/07: 61-year-old female states that approximately a month ago she developed onset of progressive severe low back pain . She does not recall any definite cause of the symptoms. She states she may have been lifting some boxes and strained her back. She states that she was seen in the emergency room for medical evaluation at that time. Her EMR indicates that she was seen on complaining of approximately 2 weeks of low back pain after doing some stretching. She was released with baclofen and a Lidoderm patch. She states that she had to start using a walker due to persistent pain over the past month , and has been somewhat unsteady with her gait. She fell a week ago, and since then has had significant increase low back pain with radiation to primarily the right lateral hip and thigh. She has been mostly bedridden since she fell, unable to stand up even with a walker. She has had episodes of loss of bowel and bladder control, but attributes these to pain and not being able to get to the bathroom rather than actual incontinence. No complaint of significant numbness in the lower extremities. No pain which is some numbness in the upper extremities 08/09: The patient is awake and alert this morning. She says she is doing good although she does endorse pain to the back and a slight headache. 08/10: The patient is doing well when seen this morning. She does endorse some back pain which is better and a slight headache also. (Judson Gauthier) System Review Comments Constitutional: Patient denies any fever or chills. Respiratory: Patient denies any shortness of breath or productive cough. Cardiovascular: Patient denies any chest pain, palpitations or irregular heartbeat. Gastrointestinal: Patient denies any abdominal pain, nausea, vomiting or incontinence of stool. Genitourinary: Patient denies any incontinence of urine. Musculoskeletal: Patient complains of back pain and joint aches. She denies any other pain to the arms or legs. Neurologic: Patient states she has slight headache. She denies any dizziness, numbness or tingling. (Judson Gauthier) Exam Results Vital Signs Date Time Temp Pulse Resp B/P Pulse Ox O2 Delivery O2 Flow Rate FiO2 08/10/16 04:00 97.2 103 16 110/68 94 08/06/16 21:00 Room Air Intake and Output 08/09/16 08/09/16 08/10/16 08:00 16:00 00:00 Intake Total 240 ml 600 ml 240 ml Balance 240 ml 600 ml 240 ml (Judson Gauthier) Physical Examination GENERAL: Awake & alert, normal affect, no apparent distress. INTEGUMENTARY: Skin warm & dry. Multiple healed wounds to legs, no rashes, ecchymoses or other lesions. HEENT: Normocephalic, atraumatic. NECK: Midline cervical spine NTTP, full AROM, no JVD, trachea midline. RESPIRATORY: CTAB w/o W/R/R, equal excursion, nonlaboured, on RA. CARDIOVASCULAR: S1S2 w/regular but fast rate w/o M/G/R, radial & pedal pulses 2 + bilaterally, cap refill < 2 sec, no pedal edema. GASTROINTESTINAL: Abdomen soft, nontender, positive bowel sounds. MUSCULOSKELETAL: Mild right lateral hip TTP. Mild discomfort to right hip with straight leg raise at 45. TTP at thoracolumbar junction and along lumbar spine. Deformity noted to proximal right tibia NTTP. NEUROLOGICAL: AAOx3 Speech clear & appropriate Sensation intact to light touch to all extremities Motor strength LLE 4+ to 5/5, RLE 4+ to 5/5 except quadricep is 3/5, RUE 5/5, LUE 4+/5, patient states left side is always weaker (Judson Gauthier) Lab, Micro, Other Results Allergies Coded Allergies Type Severity Reaction Last Updated Verified No Known Allergies 07/10/16 Yes Recent Impressions Neck CT 08/08/16 0000 Signed Impressions: Service Date/Time: Monday, August 08, 2016 18:47 - CONCLUSION: 1. Destructive bone lesions indicating metastatic disease in the left side of the hyoid bone and right first rib. 2. Low density superficial soft tissue posterior cervical masses likely representing necrotic lymph nodes. Left submandibular necrotic lymph node also noted. 3. No primary malignancy identified in the head and neck. Len Quintero MD Chest CT 08/08/16 0000 Signed Impressions: Service Date/Time: Monday, August 08, 2016 13:10 - CONCLUSION: 1. Left perihilar upper lobe mass measuring 3.3 x 3.4 cm consistent with possible bronchogenic carcinoma. Bronchoscopy may be helpful for evaluation and possible tissue diagnosis. 2. Mediastinal and bilateral hilar lymphadenopathy likely consistent with metastatic lymphadenopathy. 3. Multiple expansile lytic lesions involving the right first, sixth, seventh and eighth ribs as well as the left sixth, seventh and eighth ribs consistent with metastatic disease to the bones. 4. Multiple noncalcified nodules within both lungs consistent with probable metastatic disease with the largest nodule measuring 9 mm on the right and 10 mm on the left. 5. Bilateral adrenal masses also consistent with probable metastatic disease. 6. Small bilateral pleural effusions with adjacent compressive atelectasis. Doroteo Henning MD Brain MRI 08/08/16 Signed Impressions: Service Date/Time: Monday, August 08, 2016 12:23 - CONCLUSION: 1. Abnormal enhancement of the clivus and cribriform plate concerning for metastatic disease the bone. 2. Focal are of abnormal enhancement in the sublingual bone again concerning for metastatic disease. 3. No definite mass identified within the brain parenchyma. Ney Ulloa MD Abdomen/Pelvis CT 08/08/16 0000 Signed Impressions: Service Date/Time: Monday, August 08, 2016 13:10 - CONCLUSION: 1. Enlargement of the uterus with an abnormal appearance measuring 6.1 x 5.2 cm. This would be concerning for an endometrial mass. 2. Severe compression fracture of L3 and scattered bony lesions identified within the lumbar spine and sacrum as above. This is concerning for widespread metastatic disease to bone. 3. Focal enhancing lesion in the erector spinae muscle on the right measuring 2.2 x 1.9 cm. 4. Bilateral adrenal masses concerning for metastatic disease to the adrenal glands. Ney Ulloa MD /16/176/17/176/17/176/18/176/18/17 06:00 18:00 06:00 18:00 06:00 18:00 Intake Total 960 ml 480 ml 720 ml 600 ml 480 ml 0 ml Output Total 500 ml Balance 960 ml -20 ml 720 ml 600 ml 480 ml 0 ml Intake Oral 960 ml 480 ml 720 ml 600 ml 480 ml IV Total 0 ml Output Urine Total 500 ml # Voids 5 2 7 2 3 # Bowel Movements 0 1 0 1 1 Laboratory Tests Test 08/07/16 08/08/16 08/08/16 08/09/16 12:21 08:20 20:26 11:53 Sodium Level 141 MEQ/L 143 MEQ/L 138 MEQ/L Potassium Level 3.4 MEQ/L 3.5 MEQ/L 3.6 MEQ/L Chloride Level 104 MEQ/L 104 MEQ/L 100 MEQ/L Carbon Dioxide Level 25.1 MEQ/L 31.0 MEQ/L 29.1 MEQ/L Anion Gap 12 MEQ/L 8 MEQ/L 9 MEQ/L Blood Urea Nitrogen 23 MG/DL 17 MG/DL 11 MG/DL Creatinine 0.48 MG/DL 0.60 MG/DL 0.48 MG/DL Estimat Glomerular Filtration 132 ML/MIN 102 ML/MIN 132 ML/MIN Rate Random Glucose 113 MG/DL 129 MG/DL 103 MG/DL Calcium Level 10.1 MG/DL 9.2 MG/DL 9.7 MG/DL Phosphorus Level 2.6 MG/DL Magnesium Level 1.8 MG/DL Carcinoembryonic Antigen 705.2 NG/ML White Blood Count 10.7 TH/MM3 Red Blood Count 3.10 MIL/MM3 Hemoglobin 10.7 GM/DL Hematocrit 31.2 % Mean Corpuscular Volume 100.6 FL Mean Corpuscular Hemoglobin 34.4 PG Mean Corpuscular Hemoglobin 34.2 % Concent Red Cell Distribution Width 15.5 % Platelet Count 186 TH/MM3 Mean Platelet Volume 9.4 FL Test 08/10/16 06:42 White Blood Count 9.9 TH/MM3 Red Blood Count 2.86 MIL/MM3 Hemoglobin 9.7 GM/DL Hematocrit 28.7 % Mean Corpuscular Volume 100.5 FL Mean Corpuscular Hemoglobin 34.1 PG Mean Corpuscular Hemoglobin 33.9 % Concent Red Cell Distribution Width 15.3 % Platelet Count 179 TH/MM3 Mean Platelet Volume 9.3 FL Sodium Level 137 MEQ/L Potassium Level 3.4 MEQ/L Chloride Level 99 MEQ/L Carbon Dioxide Level 31.8 MEQ/L Anion Gap 6 MEQ/L Blood Urea Nitrogen 18 MG/DL Creatinine 0.53 MG/DL Estimat Glomerular Filtration 118 ML/MIN Rate Random Glucose 110 MG/DL Calcium Level 9.7 MG/DL Vital Signs Date Time Temp Pulse Resp B/P Pulse Ox O2 Delivery O2 Flow Rate FiO2 08/10/16 04:00 97.2 103 16 110/68 94 08/10/16 00:00 97.5 99 16 98/61 95 08/09/16 20:00 97.9 110 16 99/65 94 08/09/16 15:50 97.9 110 18 115/77 92 08/09/16 12:00 96.6 110 18 106/75 92 08/09/16 08:00 97.6 110 18 119/83 93 08/09/16 04:00 97.9 90 17 136/81 95 08/09/16 00:00 97.8 111 16 123/86 95 08/08/16 19:00 98.4 117 15 127/85 96 08/08/16 16:00 97.8 116 18 102/72 92 08/08/16 12:00 96.0 107 18 121/90 96 08/08/16 08:00 97.3 103 18 123/88 91 08/08/16 04:00 98.1 116 17 141/92 92 08/08/16 00:00 97.5 107 17 143/92 93 08/07/16 19:00 98.6 104 16 130/83 93 08/07/16 16:00 97.2 94 18 128/83 94 08/07/16 12:00 96.0 100 18 132/75 96 (Judson Gauthier) Medical Decision Making Impression and Plan Impression: 1. Approximately 50% L3 and minimal L5 compression fractures. 2. Question of mild right L3-4 motor deficit MRI lumbar spine demonstrates widespread bony metastatic disease with pathological compressions fractures of L3 (severe), L5 (mild) and T12 & L2 (both slight); moderate spinal stenosis at L3; bilateral L3-4 and left L4-5 foraminal stenosis r/t tumor MRI brain demonstrates abnormal enhancemen of the clivus & cribiform plate and the sublingual bone concerning for metatstatic disease, no definite brain mass noted CT chest, abdomen & pelvis demonstrate possible bronchogenic carcinoma and probable metatstaic disease CT neck demonstrates destructive bone lesions indicating metatstatic disease of the left side of the hyoid bone and the right first rib and probable necrotic lymph nodes Multiple pathologic compression fractures r/t metatstatic disease Stable neurolgical function Mild hypokalemia this morning Plan: Discussed plan of care with patient who verbalised her understanding. Primary mgmt per Hospitalist Continue conservative treatment for the lumbar fractures. PT eval & tx Mobilise patient w/assistance OOB w/LSO brace (Judson Gauthier) Attending Statement I have personally seen and examined the patient on the date of this note. Pertinent documentation and study results have been reviewed by the undersigned. I have personally developed the treatment plan and performed medical decision making. Agree with findings, exam, and treatment plan as noted above. Moving right hip little better today, still with pain but no definite motor deficit. Discussed findings with patient. Continue to mobilize out of bed with brace. Conservative treatment anticipated for lumbar fracture. (Rojas Stephens MD) Judson Gauthier Aug 10, 2016 09:41 Rojas Stephens MD Aug 10, 2016 20:17
--- NOTE | 2016-08-10 09:57 | HHI.PR ---
Subjective Remarks Biopsy of posterior neck plan for 08/11/16. Patient has no new complaints. She does have hypokalemia this morning. Objective Vital Signs Date Time Temp Pulse Resp B/P Pulse Ox O2 Delivery O2 Flow Rate FiO2 08/10/16 08:00 97.0 107 18 113/77 95 08/10/16 04:00 97.2 103 16 110/68 94 08/10/16 00:00 97.5 99 16 98/61 95 08/09/16 20:00 97.9 110 16 99/65 94 08/09/16 15:50 97.9 110 18 115/77 92 08/09/16 12:00 96.6 110 18 106/75 92 I/O 08/09/16 08/09/16 08/09/16 08/10/16 08/10/16 08/10/16 07:00 15:00 23:00 07:00 15:00 23:00 Intake Total 240 ml 600 ml 240 ml 240 ml Balance 240 ml 600 ml 240 ml 240 ml Intake Oral 240 ml 600 ml 240 ml 240 ml IV Total 0 ml # Voids 4 2 2 1 # Bowel Movements 0 1 1 0 Result Diagram: 08/10/16 0642 08/10/16 0642 Objective Remarks GENERAL: NAD, A&Ox3 HEAD: Normocephalic. NECK: Supple, trachea midline. No lymphadenopathy. EYES: No scleral icterus. No injection or drainage. CARDIOVASCULAR: Regular rate and rhythm without murmurs, gallops, or rubs. RESPIRATORY: Breath sounds equal bilaterally. No accessory muscle use. GASTROINTESTINAL: Abdomen soft, non-tender, nondistended. MUSCULOSKELETAL: No cyanosis, or edema. SKIN: Warm and dry. NEURO: No focal neurological deficitis. A/P Problem List: (1) Hypokalemia ICD Code: E87.6 (2) Lumbosacral radiculopathy ICD Code: M54.17 Assessment and Plan Assessment and plan 61-year-old female admitted with hypokalemia and lumbar spine fractures. Metastatic disease at lumbar spine, sacrum, pelvic bones, scalp, adrenals, lung , submandibular soft tissue, cervical soft tissue, ribs, hyoid bone, and endometrium. Biopsy of the posterior neck (soft tissue) plan for 08/11/16. Hypokalemia present this morning and patient provided a supplement of potassium. Twice a day potassium supplementation started. Hyperkalemia Resolved May have been secondary to neoplastic process Follow potassium levels Lumbar spine fractures May be pathologic based on MRI imaging Continue when necessary pain treatments Neurosurgery following Diffuse metastatic disease Workup to determine primary cause May have been contributory to hypokalemia Likely responsible for lumbar fractures Ordered MRI brain Ordered CAT scan of chest Ordered CAT scan of abdomen and pelvis Oncology following DVT prophylaxis Ney Stafford MD Aug 10, 2016 09:57
[2016-08-10] MEDS: DOCUSATE SODIUM 100 MG CAP PO SCH ×2 (10:30→20:20)
[2016-08-10] MEDS: ENOXAPARIN SODIUM 40 MG/0.4 ML SYRINGE SQ SCH (10:30)
[2016-08-10 12:00] VITALS: BP 116/74; PULSE 101; RESP 18; TEMP 96.5; O2SAT 94
--- NOTE | 2016-08-10 14:11 | PD.ONC.PN ---
Subjective Subjective Remarks Afebrile overnight Pt ready for biopsy tomorrow Has been getting OOB and walking around the room. Objective Data Date Time Temp Pulse Resp B/P Pulse Ox O2 Delivery O2 Flow Rate FiO2 08/10/16 08:00 97.0 107 18 113/77 95 08/10/16 04:00 97.2 103 16 110/68 94 08/10/16 00:00 97.5 99 16 98/61 95 08/09/16 20:00 97.9 110 16 99/65 94 08/09/16 15:50 97.9 110 18 115/77 92 08/10/16 08/10/16 08/10/16 07:00 15:00 23:00 Intake Total 240 ml Balance 240 ml Result Diagram: 08/10/16 0642 08/10/16 0642 Laboratory Results Laboratory Tests Test 08/10/16 06:42 White Blood Count 9.9 TH/MM3 Red Blood Count 2.86 MIL/MM3 Hemoglobin 9.7 GM/DL Hematocrit 28.7 % Mean Corpuscular Volume 100.5 FL Mean Corpuscular Hemoglobin 34.1 PG Mean Corpuscular Hemoglobin 33.9 % Concent Red Cell Distribution Width 15.3 % Platelet Count 179 TH/MM3 Mean Platelet Volume 9.3 FL Sodium Level 137 MEQ/L Potassium Level 3.4 MEQ/L Chloride Level 99 MEQ/L Carbon Dioxide Level 31.8 MEQ/L Anion Gap 6 MEQ/L Blood Urea Nitrogen 18 MG/DL Creatinine 0.53 MG/DL Estimat Glomerular Filtration 118 ML/MIN Rate Random Glucose 110 MG/DL Calcium Level 9.7 MG/DL Administered Medications Medications (Trade) Dose Ordered Sig/Sergio Route PRN Reason Start Time Stop Time Status Last Admin Dose Admin Acetaminophen (Tylenol) 650 mg Q4H PRN PO FEVER 08/06/16 18:45 08/07/16 00:21 Morphine Sulfate (Morphine Inj) 2 mg Q3H PRN IV PUSH breakthrough pain 08/07/16 02:45 08/10/16 02:06 Enoxaparin Sodium (Lovenox Inj) 40 mg Q24H SQ 08/07/16 09:00 08/10/16 10:30 Docusate Sodium (Colace) 100 mg BID PO 08/07/16 21:00 08/10/16 10:30 Magnesium Hydroxide (Milk Of Magnesia Liq) 30 ml DAILY PRN PO Constipation 08/07/16 16:45 08/08/16 07:18 Oxycodone/ Acetaminophen (Percocet 5-325 Mg) 1 tab Q4H PRN PO PAIN SCALE 4 TO 10 08/09/16 11:00 08/10/16 10:29 Objective Remarks GENERAL: Older female, lying in bed in no distress with family members present. SKIN: Warm and dry. HEAD: Normocephalic. EYES: No injection or drainage. NECK: L submental + lymphadenopathy. R posterior soft mobile mass. L post auricular somewhat immobile nodule. CARDIOVASCULAR: +S1/S2. RESPIRATORY: Clear anteriorly. Breathing unlabored. GASTROINTESTINAL: Abdomen soft, non-tender, nondistended. EXTREMITIES: No edema. MUSCULOSKELETAL: Generalized weakness NEUROLOGICAL: Alert, Normal speech. Moving all extremities. Assessment/Plan Assessment 61-year-old female admitted with generalized weakness and pain to the point that she was urinating and defecating herself. Workup in the emergency room shows widespread bony metastatic disease with a likely lung primary. Plan 1.We will plan to place [facility] tomorrow during biopsy. 2. Dr Kuhn discussed with Dr Armstrong, this can easily be done during neck biopsy. 3. The pt was encouraged to stay mobile and get OOB as much as possible. Attending Statement The exam, history, and the medical decision-making described in the above note were completed with the assistance of the mid-level provider. I reviewed and agree with the findings presented. I attest that I had a [id number] encounter with the patient on the same day, and personally performed and documented my assessment and findings in the medical record. no change in exam. situation reviewed with mother and sister. I spoke with Dr Armstrong and patient will have bx and port placed tomorrow. workup moving forward and hopefully can start xrt soon. If this is small cell cancer (less likely then chemo alone may be adequate). Crystal Barr Aug 10, 2016 14:11 Jae Kuhn MD Aug 10, 2016 14:14
[2016-08-10 16:00] VITALS: BP 121/75; PULSE 109; RESP 16; TEMP 97.8; O2SAT 92
[2016-08-10 20:00] VITALS: BP 128/86; PULSE 105; RESP 18; TEMP 97; O2SAT 94
[2016-08-10] MEDS: POTASSIUM CHLORIDE 10 MEQ CAP PO SCH (20:25)
[2016-08-11 00:05] VITALS: BP 120/80; PULSE 104; RESP 17; TEMP 97.3; O2SAT 94
[2016-08-11] MEDS ORDERED: SODIUM CHLORID 0.9% 500 ML IV PRN (02:45)
[2016-08-11] MEDS ORDERED: METOPROLOL TARTRATE 25 MG TAB PO PRN (02:45)
[2016-08-11] MEDS ORDERED: CHLORHEXIDINE GLUCONATE 2 % 1 PACK (2 CLOTHS) TOPICAL PRN (02:45)
[2016-08-11] MEDS ORDERED: POVIDONE IODINE 5% (ANTISEPSIS KIT) 4 APPLICATIONS EACH NARE PRN (02:45)
[2016-08-11] MEDS ORDERED: INSULIN HUMAN REGULAR 1,000 UNITS/10 ML VIAL SQ PRN (02:45)
[2016-08-11] MEDS ORDERED: LACTATED RINGER'S 1000 ML IV PRN (02:45)
[2016-08-11 04:03] VITALS: BP 128/95; PULSE 108; RESP 17; TEMP 96.8; O2SAT 94
[2016-08-11] MEDS: oxyCODONE/ACETAMINOPHEN 5 MG/325 MG TAB PO PRN ×2 (04:57→09:38)
[2016-08-11 06:38] LABS: HEMATOCRIT 28.2 % (35.0-46.0); MEAN CELL VOLUME 100.2 FL (80.0-100.0); MEAN CORPUSCULAR HEMOGLOBIN 35.1 PG (27.0-34.0); PLATELET COUNT 202 TH/MM3 (150-450); RED BLOOD COUNT 2.81 MIL/MM3 (4.00-5.30); REVIEW FLAG FINAL; WHITE BLOOD COUNT 9.4 TH/MM3 (4.0-11.0)
[2016-08-11 06:43] LABS: POTASSIUM 3.8 MEQ/L (3.5-5.1)
[2016-08-11 07:41] VITALS: BP 134/87; PULSE 106; RESP 20; TEMP 97.5; O2SAT 93
--- NOTE | 2016-08-11 08:45 | HHI.PR ---
Subjective Remarks This is a pleasant 61 y/o Female seen by Neurosurgery due to Compression fractures L3, L5, continue conservative management, the patient has widespread bony metastatic disease through the rib cage the spine and pelvis, as apparent Primary Lung cancer with diffuse metastatic disease, recommended by Oncology for Port placement, Neck Biopsy, seen in her bedroom discussed with patient and nurse Miss Jaimes no new issues, awaiting for procedures no nausea, vomit or diarrhea. Objective Vital Signs Date Time Temp Pulse Resp B/P Pulse Ox O2 Delivery O2 Flow Rate FiO2 08/11/16 07:41 97.5 106 20 134/87 93 08/11/16 04:03 96.8 108 17 128/95 94 08/11/16 00:05 97.3 104 17 120/80 94 08/10/16 20:00 97.0 105 18 128/86 94 08/10/16 19:01 Room Air 08/10/16 16:00 97.8 109 16 121/75 92 08/10/16 12:00 96.5 101 18 116/74 94 I/O 08/10/16 08/10/16 08/10/16 08/11/16 08/11/16 08/11/16 06:59 14:59 22:59 06:59 14:59 22:59 Intake Total 240 ml 480 ml 360 ml Balance 240 ml 480 ml 360 ml Intake Oral 240 ml 480 ml 360 ml IV Total 0 ml # Voids 1 4 1 3 # Bowel Movements 0 0 0 0 Result Diagram: 08/11/16 0541 08/11/16 0541 Imaging Last Impressions Neck CT 08/08/16 0000 Signed Impressions: Service Date/Time: Monday, August 08, 2016 18:47 - CONCLUSION: 1. Destructive bone lesions indicating metastatic disease in the left side of the hyoid bone and right first rib. 2. Low density superficial soft tissue posterior cervical masses likely representing necrotic lymph nodes. Left submandibular necrotic lymph node also noted. 3. No primary malignancy identified in the head and neck. Len Quintero MD Chest CT 08/08/16 0000 Signed Impressions: Service Date/Time: Monday, August 08, 2016 13:10 - CONCLUSION: 1. Left perihilar upper lobe mass measuring 3.3 x 3.4 cm consistent with possible bronchogenic carcinoma. Bronchoscopy may be helpful for evaluation and possible tissue diagnosis. 2. Mediastinal and bilateral hilar lymphadenopathy likely consistent with metastatic lymphadenopathy. 3. Multiple expansile lytic lesions involving the right first, sixth, seventh and eighth ribs as well as the left sixth, seventh and eighth ribs consistent with metastatic disease to the bones. 4. Multiple noncalcified nodules within both lungs consistent with probable metastatic disease with the largest nodule measuring 9 mm on the right and 10 mm on the left. 5. Bilateral adrenal masses also consistent with probable metastatic disease. 6. Small bilateral pleural effusions with adjacent compressive atelectasis. Doroteo Henning MD Brain MRI 08/08/16 0000 Signed Impressions: Service Date/Time: Monday, August 08, 2016 12:23 - CONCLUSION: 1. Abnormal enhancement of the clivus and cribriform plate concerning for metastatic disease the bone. 2. Focal are of abnormal enhancement in the sublingual bone again concerning for metastatic disease. 3. No definite mass identified within the brain parenchyma. Ney Ulloa MD Abdomen/Pelvis CT 08/08/16 0000 Signed Impressions: Service Date/Time: Monday, August 08, 2016 13:10 - CONCLUSION: 1. Enlargement of the uterus with an abnormal appearance measuring 6.1 x 5.2 cm. This would be concerning for an endometrial mass. 2. Severe compression fracture of L3 and scattered bony lesions identified within the lumbar spine and sacrum as above. This is concerning for widespread metastatic disease to bone. 3. Focal enhancing lesion in the erector spinae muscle on the right measuring 2.2 x 1.9 cm. 4. Bilateral adrenal masses concerning for metastatic disease to the adrenal glands. Ney Ulloa MD Lumbar Spine MRI 08/07/16 0000 Signed Impressions: Service Date/Time: July 20:41 - CONCLUSION: 1. 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 There are pathologic compression fractures, severe at L3, mild of L5 and slight of T12 and L2. 2. L3 compression fracture-associated moderate spinal stenosis. 3. Tumor-associated bilateral foraminal stenosis at L3/L4 and left foraminal stenosis at L4/L5. 4. CT the chest, abdomen and pelvis with intravenous and oral contrast recommended for further evaluation and attempted identification of primary tumor. Haroon Tillman MD Lumbar Spine X-Ray 08/06/16 9045 Signed Impressions: Service Date/Time: Saturday, August 06, 2016 18:01 - CONCLUSION: Nonacute appearing compression deformities, moderate to severe of L3 and slight of L5. Haroon Tillman MD Hip X-Ray 08/06/16 1638 Signed Impressions: Service Date/Time: Saturday, August 06, 2016 16:55 - CONCLUSION: 1. No acute fracture or dislocation. 2. Mild degenerative changes involving the right hip joint. Doroteo Henning MD Procedures None Other Results Laboratory Tests Test 08/08/16 08/08/16 08/11/16 08:20 20:26 05:41 Phosphorus Level 2.6 MG/DL Magnesium Level 1.8 MG/DL Carcinoembryonic Antigen 705.2 NG/ML White Blood Count 9.4 TH/MM3 Red Blood Count 2.81 MIL/MM3 Hemoglobin 9.9 GM/DL Hematocrit 28.2 % Mean Corpuscular Volume 100.2 FL Mean Corpuscular Hemoglobin 35.1 PG Mean Corpuscular Hemoglobin 35.0 % Concent Red Cell Distribution Width 15.0 % Platelet Count 202 TH/MM3 Mean Platelet Volume 9.2 FL Sodium Level 138 MEQ/L Potassium Level 3.8 MEQ/L Chloride Level 100 MEQ/L Carbon Dioxide Level 31.0 MEQ/L Anion Gap 7 MEQ/L Blood Urea Nitrogen 16 MG/DL Creatinine 0.63 MG/DL Estimat Glomerular Filtration 96 ML/MIN Rate Random Glucose 103 MG/DL Calcium Level 9.3 MG/DL Objective Remarks GENERAL: NAD, A&Ox3 HEAD: Normocephalic. NECK: Supple, trachea midline. No lymphadenopathy. EYES: No scleral icterus. No injection or drainage. CARDIOVASCULAR: Regular rate and rhythm without murmurs, gallops, or rubs. RESPIRATORY: Breath sounds equal bilaterally. No accessory muscle use. GASTROINTESTINAL: Abdomen soft, non-tender, nondistended. MUSCULOSKELETAL: No cyanosis, or edema. SKIN: Warm and dry. NEURO: No focal neurological deficitis. Medications and IVs Current Medications Medications (Trade) Dose Ordered Sig/Sergio Route Start Time Stop Time Status Last Admin (Tylenol) 650 mg Q4H PRN PO 08/06/16 18:45 08/07/16 00:21 (Zofran Inj) 4 mg Q6H PRN IV PUSH 08/06/16 18:45 (Morphine Inj) 2 mg Q3H PRN IV PUSH 08/07/16 02:45 08/10/16 02:06 (Lovenox Inj) 40 mg Q24H SQ 08/07/16 09:00 08/10/16 10:30 (Colace) 100 mg BID PO 08/07/16 21:00 08/10/16 20:20 (Milk Of Magnesia Liq) 30 ml DAILY PRN PO 08/07/16 16:45 08/08/16 07:18 (Percocet 5-325 Mg) 1 tab Q4H PRN PO 08/09/16 11:00 08/11/16 04:57 Potassium Chloride 10 meq 10 meq BID PO 08/10/16 21:00 08/10/16 20:25 Lactated Ringer's 1,000 ml @ 30 mls/hr Q24H PRN IV 08/11/16 02:45 08/14/16 02:44 (NS 500 ml Inj) 500 ml @ 30 mls/hr [id number] PRN IV 08/11/16 02:45 08/14/16 02:44 A/P Assessment and Plan 61-year-old female admitted with hypokalemia and lumbar spine fractures. Metastatic disease at lumbar spine, sacrum, pelvic bones, scalp, adrenals, lung , submandibular soft tissue, cervical soft tissue, ribs, hyoid bone, and endometrium. Biopsy of the posterior neck (soft tissue) plan for 08/11/16. Hypokalemia present this morning and patient provided a supplement of potassium. Twice a day potassium supplementation started. Hyperkalemia Resolved May have been secondary to neoplastic process Follow potassium levels Lumbar spine fractures May be pathologic based on MRI imaging Continue when necessary pain treatments Conservative management as per Neurosurgery. Diffuse metastatic disease Workup to determine primary cause May have been contributory to hypokalemia Likely responsible for lumbar fractures, will have Neck Biopsy and Port placement today as per endocrinology specialist. DVT prophylaxis Lovenox Discharge Planning Awaiting final recommendations by endocrinology specialist for discharge. Tej Richmond MD Aug 11, 2016 08:45
[2016-08-11] MEDS: DOCUSATE SODIUM 100 MG CAP PO SCH ×2 (09:00→21:57)
[2016-08-11] MEDS: ENOXAPARIN SODIUM 40 MG/0.4 ML SYRINGE SQ SCH (09:00)
[2016-08-11] MEDS: POTASSIUM CHLORIDE 10 MEQ CAP PO SCH ×2 (09:35→21:57)
--- NOTE | 2016-08-11 09:44 | HHI.NSPN ---
(Judson Gauthier) History Chief Complaint: Back pain that is better (Judson Gauthier) Interval History 08/07: 61-year-old female states that approximately a month ago she developed onset of progressive severe low back pain . She does not recall any definite cause of the symptoms. She states she may have been lifting some boxes and strained her back. She states that she was seen in the emergency room for medical evaluation at that time. Her EMR indicates that she was seen on complaining of approximately 2 weeks of low back pain after doing some stretching. She was released with baclofen and a Lidoderm patch. She states that she had to start using a walker due to persistent pain over the past month , and has been somewhat unsteady with her gait. She fell a week ago, and since then has had significant increase low back pain with radiation to primarily the right lateral hip and thigh. She has been mostly bedridden since she fell, unable to stand up even with a walker. She has had episodes of loss of bowel and bladder control, but attributes these to pain and not being able to get to the bathroom rather than actual incontinence. No complaint of significant numbness in the lower extremities. No pain which is some numbness in the upper extremities 08/09: The patient is awake and alert this morning. She says she is doing good although she does endorse pain to the back and a slight headache. 08/10: The patient is doing well when seen this morning. She does endorse some back pain which is better and a slight headache also. 08/11: The patient says she is doing good when seen. She does have pain to the back which she states is better. She also endorses pain and numbness to the right lateral hip/thigh as well as a slight frontal headache this morning. ( Judson Gauthier) System Review Comments Constitutional: Patient denies any fever or chills. Respiratory: Patient denies any shortness of breath or productive cough. Cardiovascular: Patient denies any chest pain, palpitations or irregular heartbeat. Gastrointestinal: Patient denies any abdominal pain, nausea, vomiting or incontinence of stool. Genitourinary: Patient denies any incontinence of urine. Musculoskeletal: Patient complains of back pain that is better. She also has right lateral thigh/hip pain. She denies any other pain to the arms or legs. Neurologic: Patient states she has a slight headache. The right lateral thigh/ hip is numb. She denies any dizziness, tingling or other numbness. (Judson Gauthier) Exam Results Vital Signs Date Time Temp Pulse Resp B/P Pulse Ox O2 Delivery O2 Flow Rate FiO2 08/11/16 07:41 97.5 106 20 134/87 93 08/10/16 19:01 Room Air Intake and Output 08/10/16 08/10/16 08/11/16 08:00 16:00 00:00 Intake Total 240 ml 480 ml 360 ml Balance 240 ml 480 ml 360 ml (Judson Gauthier) Physical Examination GENERAL: Awake & alert, slightly flat affect, no apparent distress. INTEGUMENTARY: Skin warm & dry. Multiple healed wounds to legs, no rashes, ecchymoses or other lesions. HEENT: Normocephalic, atraumatic. NECK: Midline cervical spine NTTP, full AROM, no JVD, trachea midline. RESPIRATORY: CTAB w/o W/R/R, equal excursion, nonlaboured, on RA. CARDIOVASCULAR: S1S2 w/regular but fast rate w/o M/G/R, radial & pedal pulses 2 + bilaterally, cap refill < 2 sec, no pedal edema. GASTROINTESTINAL: Abdomen soft, nontender, positive bowel sounds. MUSCULOSKELETAL: Mild right lateral hip/thigh TTP. Mild discomfort to right hip with straight leg raise at 45. TTP at thoracolumbar junction and along lumbar spine. Deformity noted to proximal right tibia NTTP. NEUROLOGICAL: AAOx3 Speech clear & appropriate Sensation decreased to right lateral hip/thigh o/w intact to light touch to all extremities Motor strength LUE & LLE 4+ to 5/5, RLE 4+ to 5/5 except quadricep is 3/5, RUE 4 + to 5/5 but tricep is 3/5 this morning with repeated testing (Judson Gauthier) Lab, Micro, Other Results Allergies Coded Allergies Type Severity Reaction Last Updated Verified No Known Allergies 5/18/17 Yes //////// 06:00 18:00 06:00 18:00 06:00 18:00 Intake Total 720 ml 600 ml 480 ml 480 ml 360 ml Balance 720 ml 600 ml 480 ml 480 ml 360 ml Intake Oral 720 ml 600 ml 480 ml 480 ml 360 ml IV Total 0 ml # Voids 7 2 3 4 1 3 # Bowel Movements 0 1 1 0 0 0 Laboratory Tests Test 08/08/16 08/09/16 08/10/16 08/11/16 20:26 11:53 06:42 05:41 Carcinoembryonic Antigen 705.2 NG/ML White Blood Count 10.7 TH/MM3 9.9 TH/MM3 9.4 TH/MM3 Red Blood Count 3.10 MIL/MM3 2.86 MIL/MM3 2.81 MIL/MM3 Hemoglobin 10.7 GM/DL 9.7 GM/DL 9.9 GM/DL Hematocrit 31.2 % 28.7 % 28.2 % Mean Corpuscular Volume 100.6 FL 100.5 FL 100.2 FL Mean Corpuscular Hemoglobin 34.4 PG 34.1 PG 35.1 PG Mean Corpuscular Hemoglobin 34.2 % 33.9 % 35.0 % Concent Red Cell Distribution Width 15.5 % 15.3 % 15.0 % Platelet Count 186 TH/MM3 179 TH/MM3 202 TH/MM3 Mean Platelet Volume 9.4 FL 9.3 FL 9.2 FL Sodium Level 138 MEQ/L 137 MEQ/L 138 MEQ/L Potassium Level 3.6 MEQ/L 3.4 MEQ/L 3.8 MEQ/L Chloride Level 100 MEQ/L 99 MEQ/L 100 MEQ/L Carbon Dioxide Level 29.1 MEQ/L 31.8 MEQ/L 31.0 MEQ/L Anion Gap 9 MEQ/L 6 MEQ/L 7 MEQ/L Blood Urea Nitrogen 11 MG/DL 18 MG/DL 16 MG/DL Creatinine 0.48 MG/DL 0.53 MG/DL 0.63 MG/DL Estimat Glomerular Filtration 132 ML/MIN 118 ML/MIN 96 ML/MIN Rate Random Glucose 103 MG/DL 110 MG/DL 103 MG/DL Calcium Level 9.7 MG/DL 9.7 MG/DL 9.3 MG/DL Vital Signs Date Time Temp Pulse Resp B/P Pulse Ox O2 Delivery O2 Flow Rate FiO2 08/11/16 07:41 97.5 106 20 134/87 93 08/11/16 04:03 96.8 108 17 128/95 94 08/11/16 00:05 97.3 104 17 120/80 94 08/10/16 20:00 97.0 105 18 128/86 94 08/10/16 19:01 Room Air 08/10/16 16:00 97.8 109 16 121/75 92 08/10/16 12:00 96.5 101 18 116/74 94 08/10/16 08:00 97.0 107 18 113/77 95 08/10/16 04:00 97.2 103 16 110/68 94 08/10/16 00:00 97.5 99 16 98/61 95 08/09/16 20:00 97.9 110 16 99/65 94 08/09/16 15:50 97.9 110 18 115/77 92 08/09/16 12:00 96.6 110 18 106/75 92 08/09/16 08:00 97.6 110 18 119/83 93 08/09/16 04:00 97.9 90 17 136/81 95 08/09/16 00:00 97.8 111 16 123/86 95 08/08/16 19:00 98.4 117 15 127/85 96 08/08/16 16:00 97.8 116 18 102/72 92 08/08/16 12:00 96.0 107 18 121/90 96 (Judson Gauthier) Medical Decision Making Impression and Plan Impression: 1. Approximately 50% L3 and minimal L5 compression fractures. 2. Question of mild right L3-4 motor deficit MRI lumbar spine demonstrates widespread bony metastatic disease with pathological compressions fractures of L3 (severe), L5 (mild) and T12 & L2 (both slight); moderate spinal stenosis at L3; bilateral L3-4 and left L4-5 foraminal stenosis r/t tumor MRI brain demonstrates abnormal enhancemen of the clivus & cribiform plate and the sublingual bone concerning for metatstatic disease, no definite brain mass noted CT chest, abdomen & pelvis demonstrate possible bronchogenic carcinoma and probable metatstaic disease CT neck demonstrates destructive bone lesions indicating metatstatic disease of the left side of the hyoid bone and the right first rib and probable necrotic lymph nodes Multiple pathologic compression fractures r/t metatstatic disease Essentially stable neuro exam but patient with more RUE weakness today Mild hypokalemia resolved this morning Plan: Discussed plan of care with patient who verbalised her understanding. Primary mgmt per Hospitalist Continue conservative treatment for the lumbar fractures. PT eval & tx Mobilise patient w/assistance OOB w/LSO brace (Judson Gauthier) Attending Statement I have personally seen and examined the patient on the date of this note. Pertinent documentation and study results have been reviewed by the undersigned. I have personally developed the treatment plan and performed medical decision making. Agree with findings, exam, and treatment plan as noted above. Stable neurologic exam. Mobilizing a little better this week, still with persistent pain likely related to sacral metastases. Continue TLSO brace, physical therapy (Rojas Stephens MD) Judson Gauthier Aug 11, 2016 09:43 Rojas Stephens MD Aug 11, 2016 19:15
[2016-08-11 11:15] VITALS: BP 173/87; PULSE 106; RESP 20; TEMP 97.1; O2SAT 92
[2016-08-11] MEDS ORDERED: BACITRACIN TOP OINT 15 GM TUBE ONE (11:36)
[2016-08-11] MEDS ORDERED: BUPIVACAINE/EPINEPHRINE 0.5% PF 30 ML VIAL ONE (11:36)
[2016-08-11] MEDS ORDERED: HEPARIN SODIUM - IV 10,000 UNITS/10 ML VIAL ONE (11:36)
[2016-08-11] MEDS ORDERED: LIDOCAINE 1%/EPINEPHrine 1:100,000 SOLN 20 ML VIAL ONE ×2 (11:37)
[2016-08-11] MEDS ORDERED: SODIUM BICARBONATE 8.4% INJ 50 ML ONE (11:37)
[2016-08-11] MEDS ORDERED: SODIUM CHLORIDE 0.9% 20 ML VIAL ONE ×2 (11:40→12:46)
[2016-08-11] MEDS ORDERED: ceFAZolin 2 GM PREMIX 50 ML ONE (11:55)
[2016-08-11] MEDS ORDERED: ONDANSETRON HCL 4 MG/2 ML VIAL IV PUSH ONE (12:00)
[2016-08-11] MEDS ORDERED: PROPOFOL 200 MG/20 ML AMP IV ONE (12:00)
[2016-08-11] MEDS ORDERED: PHENYLEPH/NS 1000 MCG/10 ML SYR IV ONE (12:00)
[2016-08-11] MEDS ORDERED: ePHEDrine/NS 25 MG/5 ML SYR IV ONE (12:00)
--- NOTE | 2016-08-11 13:28 | PD.OP ---
Operative Report Date of Surgery: Aug 11, 2016 Preoperative Diagnosis: probable Stage 4 lung cancer Postoperative Diagnosis: same Procedure: L subclavian infusaport placement, intraoperative fluoroscopy. L sub mandibular lymph node biopsy Anesthesia: general Surgeon: Jacob Armstrong Account Development Executive(s): Teagan Operation and Findings: good placement of port under fluoro, easy aspiration and flush. P CXR pending. L submandibular node sent for pathology, discussed with Dr Lorenzo Haley. EBL less than 10 ml. Jacob Armstrong MD Aug 11, 2016 13:28
[2016-08-11] MEDS ORDERED: SODIUM CHLORIDE 0.9% FLUSH 10 ML FLUSH IV FLUSH PRN (13:30)
[2016-08-11] MEDS ORDERED: Post-op Orders (for Pharmacy) MISC XX ONE (13:30)
[2016-08-11] MEDS ORDERED: fentaNYL CITRATE 250 MCG/5 ML AMP ONE (13:33)
[2016-08-11] MEDS ORDERED: MIDAZOLAM HCL 2 MG/2 ML VIAL ONE (13:33)
[2016-08-11] MEDS ORDERED: DO NOT ADM ANY ANTICOAGULANT DRUGS PRN (14:00)
--- NOTE | 2016-08-11 14:29 | RADRPT ---
EXAM DATE/TIME: 08/11/2016 13:33 [facility] COMPARISON: No previous studies available for comparison. INDICATIONS : Left side Aqocaa-P-Tlyu placement, evaluate for pneumothorax. MEDICAL HISTORY : Carcinoma, lung. SURGICAL HISTORY : None. ENCOUNTER: Initial ACUITY: 1 day PAIN SCORE: 0/10 LOCATION: Left chest FINDINGS: Uwutji-F-Iyic is in good position. There is no pneumothorax. Mass is again seen about the left hilu m. CONCLUSION: Dsibtg-E-Hica in good position without pneumothorax. Danny Ulloa MD FACR on August 11, 2016 at 13:47 Board Certified Radiologist. This report was verified electronically.
[2016-08-11 15:59] VITALS: BP 130/81; PULSE 115; RESP 16; TEMP 96.6; O2SAT 96
[2016-08-11] MEDS: ACETAMINOPHEN/HYDROcodone 325 MG/5 MG TAB PO PRN ×2 (17:31→21:57)
[2016-08-11 19:50] VITALS: BP 119/80; PULSE 109; RESP 16; TEMP 97.7; O2SAT 93
[2016-08-11] MEDS: SODIUM CHLORIDE 0.9% FLUSH 10 ML FLUSH IV FLUSH SCH (21:58)
[2016-08-12] VITALS (10 sets, daily range): BP systolic 133–179; BP diastolic 86–103; PULSE 100–121; RESP 16–20; TEMP 95.8–98.1; O2SAT 92–95
[2016-08-12] MEDS: ACETAMINOPHEN/HYDROcodone 325 MG/5 MG TAB PO PRN ×4 (03:24→21:40)
[2016-08-12] MEDS: POTASSIUM CHLORIDE 10 MEQ CAP PO SCH ×2 (07:54→21:39)
[2016-08-12] MEDS: ENOXAPARIN SODIUM 40 MG/0.4 ML SYRINGE SQ SCH (07:54)
--- NOTE | 2016-08-12 09:32 | HHI.PR ---
Subjective Remarks This is a pleasant 61 y/o Female seen by Neurosurgery due to Compression fractures L3, L5, continue conservative management, the patient has widespread bony metastatic disease through the rib cage the spine and pelvis, as apparent Primary Lung cancer with diffuse metastatic disease, recommended by Oncology for Port placement, Neck Biopsy. 08/12: Stable in her bedroom status post Left Neck area biopsy and Port placement awaiting final by personnel security specialist for discharge, no nausea, vomit or diarrhea, discussed with Nurse Miss Read and with erp project manager. Objective Vital Signs Date Time Temp Pulse Resp B/P Pulse Ox O2 Delivery O2 Flow Rate FiO2 08/12/16 08:00 96.8 104 16 179/96 92 08/12/16 05:47 133/94 08/12/16 04:02 100 139/99 08/12/16 03:24 97.4 111 16 140/103 92 08/12/16 00:00 97.0 112 20 137/86 92 08/11/16 19:50 97.7 109 16 119/80 93 08/11/16 18:58 Room Air 08/11/16 16:12 92 Room Air 08/11/16 15:59 96.6 115 16 130/81 08/11/16 15:59 96 08/11/16 14:23 Nasal Cannula 2.00 08/11/16 14:00 108 16 121/71 94 Nasal Cannula 3 08/11/16 13:45 108 16 122/74 95 Nasal Cannula 3 08/11/16 13:30 116 16 124/3 95 Nasal Cannula 3 08/11/16 13:26 98.2 122 16 119/79 95 Nasal Cannula 3 08/11/16 11:15 97.1 106 20 173/87 92 I/O 08/11/16 08/11/16 08/11/16 08/12/16 08/12/16 08/12/16 07:00 15:00 23:00 07:00 15:00 23:00 Intake Total 50 ml 480 ml 480 ml Balance 50 ml 480 ml 480 ml Intake Oral 0 ml 480 ml 480 ml IV Total 50 ml # Voids 3 2 3 4 # Bowel Movements 0 0 Result Diagram: 08/11/16 0541 08/11/16 0541 Imaging Last Impressions Chest X-Ray 08/11/16 0000 Signed Impressions: Service Date/Time: Thursday, August 11, 2016 13:33 - CONCLUSION: [id number] in good position without pneumothorax. Danny Ulloa MD FACR Neck CT 08/08/16 0000 Signed Impressions: Service Date/Time: Monday, August 08, 2016 18:47 - CONCLUSION: 1. Destructive bone lesions indicating metastatic disease in the left side of the hyoid bone and right first rib. 2. Low density superficial soft tissue posterior cervical masses likely representing necrotic lymph nodes. Left submandibular necrotic lymph node also noted. 3. No primary malignancy identified in the head and neck. Len Quintero MD Chest CT 08/08/16 0000 Signed Impressions: Service Date/Time: Monday, August 08, 2016 13:10 - CONCLUSION: 1. Left perihilar upper lobe mass measuring 3.3 x 3.4 cm consistent with possible bronchogenic carcinoma. Bronchoscopy may be helpful for evaluation and possible tissue diagnosis. 2. Mediastinal and bilateral hilar lymphadenopathy likely consistent with metastatic lymphadenopathy. 3. Multiple expansile lytic lesions involving the right first, sixth, seventh and eighth ribs as well as the left sixth, seventh and eighth ribs consistent with metastatic disease to the bones. 4. Multiple noncalcified nodules within both lungs consistent with probable metastatic disease with the largest nodule measuring 9 mm on the right and 10 mm on the left. 5. Bilateral adrenal masses also consistent with probable metastatic disease. 6. Small bilateral pleural effusions with adjacent compressive atelectasis. Doroteo Henning MD Brain MRI 08/08/16 0000 Signed Impressions: Service Date/Time: Monday, August 08, 2016 12:23 - CONCLUSION: 1. Abnormal enhancement of the clivus and cribriform plate concerning for metastatic disease the bone. 2. Focal are of abnormal enhancement in the sublingual bone again concerning for metastatic disease. 3. No definite mass identified within the brain parenchyma. Ney Ulloa MD Abdomen/Pelvis CT 08/08/16 0000 Signed Impressions: Service Date/Time: Monday, August 08, 2016 13:10 - CONCLUSION: 1. Enlargement of the uterus with an abnormal appearance measuring 6.1 x 5.2 cm. This would be concerning for an endometrial mass. 2. Severe compression fracture of L3 and scattered bony lesions identified within the lumbar spine and sacrum as above. This is concerning for widespread metastatic disease to bone. 3. Focal enhancing lesion in the erector spinae muscle on the right measuring 2.2 x 1.9 cm. 4. Bilateral adrenal masses concerning for metastatic disease to the adrenal glands. Ney Ulloa MD Lumbar Spine MRI 08/07/16 0000 Signed Impressions: Service Date/Time: July 20:41 - CONCLUSION: 1. 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 There are pathologic compression fractures, severe at L3, mild of L5 and slight of T12 and L2. 2. L3 compression fracture-associated moderate spinal stenosis. 3. Tumor-associated bilateral foraminal stenosis at L3/L4 and left foraminal stenosis at L4/L5. 4. CT the chest, abdomen and pelvis with intravenous and oral contrast recommended for further evaluation and attempted identification of primary tumor. Haroon Tillman MD Lumbar Spine X-Ray 08/06/16 1725 Signed Impressions: Service Date/Time: Saturday, August 06, 2016 18:01 - CONCLUSION: Nonacute appearing compression deformities, moderate to severe of L3 and slight of L5. Haroon Tillman MD Hip X-Ray 08/06/16 1638 Signed Impressions: Service Date/Time: Saturday, August 06, 2016 16:55 - CONCLUSION: 1. No acute fracture or dislocation. 2. Mild degenerative changes involving the right hip joint. Doroteo Henning MD Procedures With Diagnosis of Left Subclavian infusion Port Placement, intraoperative fluoroscopy and Left Submandibular Lymph node biopsy by Doctor Jacob Armstrong Aug 11, 2016 13:28 Other Results Laboratory Tests Test 08/08/16 08/08/16 08/11/16 08:20 20:26 05:41 Phosphorus Level 2.6 MG/DL Magnesium Level 1.8 MG/DL Carcinoembryonic Antigen 705.2 NG/ML White Blood Count 9.4 TH/MM3 Red Blood Count 2.81 MIL/MM3 Hemoglobin 9.9 GM/DL Hematocrit 28.2 % Mean Corpuscular Volume 100.2 FL Mean Corpuscular Hemoglobin 35.1 PG Mean Corpuscular Hemoglobin 35.0 % Concent Red Cell Distribution Width 15.0 % Platelet Count 202 TH/MM3 Mean Platelet Volume 9.2 FL Sodium Level 138 MEQ/L Potassium Level 3.8 MEQ/L Chloride Level 100 MEQ/L Carbon Dioxide Level 31.0 MEQ/L Anion Gap 7 MEQ/L Blood Urea Nitrogen 16 MG/DL Creatinine 0.63 MG/DL Estimat Glomerular Filtration 96 ML/MIN Rate Random Glucose 103 MG/DL Calcium Level 9.3 MG/DL Objective Remarks GENERAL: NAD, A&Ox3 HEAD: Normocephalic. NECK: Supple, trachea midline. No lymphadenopathy. EYES: No scleral icterus. No injection or drainage. CARDIOVASCULAR: Regular rate and rhythm without murmurs, gallops, or rubs. RESPIRATORY: Breath sounds equal bilaterally. No accessory muscle use. GASTROINTESTINAL: Abdomen soft, non-tender, nondistended. MUSCULOSKELETAL: No cyanosis, or edema. SKIN: Warm and dry. NEURO: No focal neurological deficitis. Medications and IVs Current Medications Medications (Trade) Dose Ordered Sig/Sergio Route Start Time Stop Time Status Last Admin (Tylenol) 650 mg Q4H PRN PO 08/06/16 18:45 08/07/16 00:21 (Zofran Inj) 4 mg Q6H PRN IV PUSH 08/06/16 18:45 (Morphine Inj) 2 mg Q3H PRN IV PUSH 08/07/16 02:45 08/10/16 02:06 (Lovenox Inj) 40 mg Q24H SQ 08/07/16 09:00 08/12/16 07:54 (Colace) 100 mg BID PO 08/07/16 21:00 08/11/16 21:57 (Milk Of Magnesia Liq) 30 ml DAILY PRN PO 08/07/16 16:45 08/08/16 07:18 Potassium Chloride 10 meq 10 meq BID PO 08/10/16 21:00 08/12/16 07:54 Lactated Ringer's 1,000 ml @ 30 mls/hr Q24H PRN IV 08/11/16 02:45 08/14/16 02:44 (NS 500 ml Inj) 500 ml @ 30 mls/hr [id number] PRN IV 08/11/16 02:45 08/14/16 02:44 (NS Flush) 2 ml UNSCH PRN IV FLUSH 08/11/16 13:30 (NS Flush) 2 ml BID IV FLUSH 08/11/16 21:00 08/11/16 21:58 ([place] 5-325 Mg) 1 tab Q4H PRN PO 08/11/16 13:30 08/12/16 03:24 ([place] 5-325 Mg) 2 tab Q4H PRN PO 08/11/16 13:30 Miscellaneous Information ALL NURSING DEPARTME... UNSCH PRN .XX 08/11/16 14:00 08/12/16 13:59 A/P Assessment and Plan Assessment and Plan 61-year-old female admitted with hypokalemia and lumbar spine fractures. Metastatic disease at lumbar spine, sacrum, pelvic bones, scalp, adrenals, lung , submandibular soft tissue, cervical soft tissue, ribs, hyoid bone, and endometrium. Biopsy of the posterior neck (soft tissue) plan for 08/11/16. Hypokalemia present this morning and patient provided a supplement of potassium. Twice a day potassium supplementation started. Hyperkalemia Resolved May have been secondary to neoplastic process Follow potassium levels Lumbar spine fractures May be pathologic based on MRI imaging Continue when necessary pain treatments Conservative management as per Neurosurgery. Diffuse metastatic disease Workup to determine primary cause May have been contributory to hypokalemia Likely responsible for lumbar fractures With Diagnosis of Left Subclavian infusion Port Placement, intraoperative fluoroscopy and Left Submandibular Lymph node biopsy by Doctor Jacob Armstrong Aug 11, 2016 13:28 DVT prophylaxis Lovenox Discharge Planning Awaiting final recommendations by personnel security specialist for discharge. Tej Richmond MD Aug 12, 2016 09:32
--- NOTE | 2016-08-12 09:43 | PD.ONC.PN ---
Subjective Subjective Remarks Afebrile overnight. Resting comfortably. Tolerated port placement and biopsy yesterday. Walking with walker. Objective Data Date Time Temp Pulse Resp B/P Pulse Ox O2 Delivery O2 Flow Rate FiO2 08/12/16 08:00 96.8 104 16 179/96 92 08/12/16 05:47 133/94 08/12/16 04:02 100 139/99 08/12/16 03:24 97.4 111 16 140/103 92 08/12/16 00:00 97.0 112 20 137/86 92 08/11/16 19:50 97.7 109 16 119/80 93 08/11/16 18:58 Room Air 08/11/16 16:12 92 Room Air 08/11/16 15:59 96.6 115 16 130/81 08/11/16 15:59 96 08/11/16 14:23 Nasal Cannula 2.00 08/11/16 14:00 108 16 121/71 94 Nasal Cannula 3 08/11/16 13:45 108 16 122/74 95 Nasal Cannula 3 08/11/16 13:30 116 16 124/3 95 Nasal Cannula 3 08/11/16 13:26 98.2 122 16 119/79 95 Nasal Cannula 3 08/11/16 11:15 97.1 106 20 173/87 92 08/12/16 08/12/16 08/12/16 07:00 15:00 23:00 Intake Total 480 ml Balance 480 ml Result Diagram: 08/11/16 0541 08/11/16 0541 Administered Medications Medications (Trade) Dose Ordered Sig/Sergio Route PRN Reason Start Time Stop Time Status Last Admin Dose Admin Acetaminophen (Tylenol) 650 mg Q4H PRN PO FEVER 08/06/16 18:45 08/07/16 00:21 Morphine Sulfate (Morphine Inj) 2 mg Q3H PRN IV PUSH breakthrough pain 08/07/16 02:45 08/10/16 02:06 Enoxaparin Sodium (Lovenox Inj) 40 mg Q24H SQ 08/07/16 09:00 08/12/16 07:54 Docusate Sodium (Colace) 100 mg BID PO 08/07/16 21:00 08/11/16 21:57 Magnesium Hydroxide (Milk Of Magnesia Liq) 30 ml DAILY PRN PO Constipation 6/15/17 16:45 08/08/16 07:18 Potassium Chloride (KCl) 10 meq BID PO 08/10/16 21:00 08/12/16 07:54 Sodium Chloride (NS Flush) 2 ml BID IV FLUSH 08/11/16 21:00 08/11/16 21:58 Acetaminophen/ Hydrocodone Bitart ([place] 5-325 Mg) 1 tab Q4H PRN PO PAIN SCALE 1 TO 5 08/11/16 13:30 08/12/16 03:24 Objective Remarks GENERAL: Middle aged female, sitting up in bed in nad. SKIN: Warm and dry. port in place, left chest wall. HEAD: Normocephalic. EYES: No injection or drainage. NECK: Supple, trachea midline. CARDIOVASCULAR: Regular rate and rhythm RESPIRATORY: Breath sounds equal bilaterally. No accessory muscle use. GASTROINTESTINAL: Abdomen soft, non-tender, nondistended. EXTREMITIES: No cyanosis NEUROLOGICAL: No obvious focal deficit. Awake, alert, and oriented x3. Assessment/Plan Assessment 61y/o female with suspected lung cancer with widespread bony metastatic disease. Presented to ED with back pain x 8 weeks and worsening pain and developing urinary incontinence. L MRI showed widespread mets to lumbar, sacrum and bony pelvis. compression fx at L3, 5, T12 and L2. CT chest showed left perihilar upper lobe mass 3.4 cm with mediastinal and bilateral hilar adenopathy. + lytic lesions on ribs. bilateral adrenal masses. CT ab/pelvis shows possible endometrial mass. NS recommended conservative tx to lumbar fractures, and TLSO brace --s/p left mandibular LN biopsy and port placement on 08/11 Plan 1. patient could be medically cleared and discharged. However from a social issue standpoint, it may be prudent to await pathology before discharging this patient as she is homeless without insurance. Attending Statement The exam, history, and the medical decision-making described in the above note were completed with the assistance of the mid-level provider. I reviewed and agree with the findings presented. I attest that I had a uhnz-rd-brit encounter with the patient on the same day, and personally performed and documented my assessment and findings in the medical record. no further testing required and would like to see her move in with her family, proceed with radiation therapy to LS area to be followed by chemotherapy. She indicated she will be able to move in with family. I want social service to help move this forward and will speak with radiation tomorrow to see when they can start. Jaja Steven Aug 12, 2016 09:43 Jae Kuhn MD Aug 12, 2016 21:35
--- NOTE | 2016-08-12 11:18 | MP ---
cc: MANISH WILLS M.D., RICHARD DATE OF SURGERY: 08/10/2016 PREOPERATIVE DIAGNOSIS: Probable stage IV lung cancer. POSTOPERATIVE DIAGNOSIS: Probable stage IV lung cancer. OPERATION: Left subclavian hpxafq-[id number] placement with intraoperative fluoroscopy and left submandibular lymph node biopsy. SURGEON: Manish Wills MD. ANESTHESIA: General. INDICATIONS FOR PROCEDURE: This is a very pleasant 61 year old woman who was admitted over the weekend due to severe pain and was found to have diffuse apparent bony metastatic disease from a probable left lung primary. She has palpable cervical lymphadenopathy. Placement of [id number]-M-[id number] and a left node biopsy was requested by Dr. Jae Kuhn. INTRAOPERATIVE FINDINGS: Successful placement of left subclavian yzgkyk-N-Yrez with tip of catheter in distal superior vena. There was easy aspiration of blood and for heparinized saline flushed through the port. A portal chest x-ray is pending. Left submandibular lymph node was sent for pathology. Estimated blood loss less then 10 ml. DESCRIPTION OF PROCEDURE IN DETAIL: The patient was identified as Heather Fiskio taken to the operating room and placed in the supine position. Sequential compression devices are placed in the bilateral lower extremities. Following induction of adequate general anesthesia with a laryngeal mask a rolled sheet was placed between the shoulder blades and the chin was turned to the right with the head supported. The chest and neck submandibular area was prepped and draped in the usual sterile fashion with Betadine. A time out procedure was preformed. Following the completion of time out procedure to everyone's satisfaction within the room. The patient was placed in the Trendelenburg position, left subclavian area was then infiltrated with 0.5% Marcaine with epinephrine. The introducer needle was placed into the left subclavian vein without difficulty. The guidewire was advanced through the introducer needle, into appropriate position of the C-arm fluoroscopy. The needle was removed. A incision for zxfouf-r-dbkw pocket was developed on the anterior chest and a pocket was developed using Metzenbaum scissors on top of the pectoralis fascia. The power port which had been flushed with heparinized saline was placed into the vkgegm-a-Ctnk pocket with two 2-0 Prolene stay sutures and the catheter was cut to a 20 cm length as seen on C-arm fluoroscopy to be adequately positioned. Dilating and dilating sheath were placed over the guide wire, dilating guide were removed. The catheter was set to dilating sheath which was then removed. Port positioning was checked and the distal catheter was sitting in the distal superior vena cava. Port function was tested, there as easy blood return for concentrated heparinized saline. Flush flow through the port. Jhujwj-h-nhll pocket was closed with 3-0 Vicryl and 4-0 Monocryl. Dressings were applied. Mastisol inch brown Steri-Strips, gauze and Tegaderm. Attention was then turned to the submandibular lymph node biopsy. Proposed incision was made with a marking pen, infiltrates the aforementioned local anesthetic, The incision was carried out with scalpel and hemostasis to control electrocautery. Dissected posteriorly through the subcutaneous fatty tissue. Platysmal type muscle was spread and divided with electrocautery. This allowed for identification of a large structure consistent with a lymph node with metastatic disease. About 1.5 to 2 cm piece of lymph node was excised in its entirety using electrocautery and careful dissection. This was passed off the field fresh for a pathologic evaluation. I discussed with Dr. Neil Haley of pathology the patients clinical history. The wound was irrigated with remaining local anesthetic. Small bleeding points to control electrocautery. More local anesthetic was place on either side of the incision. The wound was then close in two layers using 3-0 Vicryl and 4-0 Monocryl. Dressings were applied, Mastisol inch brown Steri-Strips, gauze and Tegaderm. The patient tolerated the procedure without apparent complications. Sponge, needle and instrument counts were correct at the end of the case. MD SUSANNE Aviles/hilda /1:29 PM /9:42 AM
--- NOTE | 2016-08-12 12:57 | HHI.PR ---
Subjective Subjective Notes Up to chair No issues overnight Pain controlled Objective Vitals/I&O Vital Signs Date Time Temp Pulse Resp B/P Pulse Ox O2 Delivery O2 Flow Rate FiO2 08/12/16 09:52 93 Nasal Cannula 1.00 08/12/16 08:00 96.8 104 16 179/96 Cardiovascular: Regular Lungs: Clear Abdomen: Non-distended, Non-tender Narrative Exam L subclavian infusaport with dressing-c/d/i L sub mandibular lymph node biopsy---dressing in place---c/d/i/ A/P Assessment and Plan 61 year old female POD1 LEFT subclavian infusaport placement and LEFT submandibular lymph node biopsy -Regular diet -Pain control -OOB and mobilizing -Await pathology Attending Statement She is doing well postop, minimal discomfort. Tegaderm dressing intact with no drainage, no erythema around incision. Non tender to palpation. Postop port and excisional biopsy of node L neck. Stable. I discussed with patient wound care, may remove tegaderms in 2-3 days, may remove steri strips in 10-12 days. Follow up with me as needed. Thank you, I will sign off. The exam, history, and the medical decision-making described in the above note were completed with the assistance of the mid-level provider. I reviewed and agree with the findings presented. I attest that I had a [id number]-[id number] encounter with the patient on the same day, and personally performed and documented my assessment and findings in the medical record. Merary Bedoya Aug 12, 2016 12:57 Jacob Armstrong MD Aug 12, 2016 13:07
--- NOTE | 2016-08-12 15:24 | HHI.NSPN ---
(Judson Gauthier) History Chief Complaint: Back is sore (Judson Gauthier) Interval History 08/07: 61-year-old female states that approximately a month ago she developed onset of progressive severe low back pain . She does not recall any definite cause of the symptoms. She states she may have been lifting some boxes and strained her back. She states that she was seen in the emergency room for medical evaluation at that time. Her EMR indicates that she was seen on complaining of approximately 2 weeks of low back pain after doing some stretching. She was released with baclofen and a Lidoderm patch. She states that she had to start using a walker due to persistent pain over the past month , and has been somewhat unsteady with her gait. She fell a week ago, and since then has had significant increase low back pain with radiation to primarily the right lateral hip and thigh. She has been mostly bedridden since she fell, unable to stand up even with a walker. She has had episodes of loss of bowel and bladder control, but attributes these to pain and not being able to get to the bathroom rather than actual incontinence. No complaint of significant numbness in the lower extremities. No pain which is some numbness in the upper extremities 08/09: The patient is awake and alert this morning. She says she is doing good although she does endorse pain to the back and a slight headache. 08/10: The patient is doing well when seen this morning. She does endorse some back pain which is better and a slight headache also. 08/11: The patient says she is doing good when seen. She does have pain to the back which she states is better. She also endorses pain and numbness to the right lateral hip/thigh as well as a slight frontal headache this morning. 08/12: When seen this afternoon the patient states that she is doing well. Her back is sore today and she denies any headache. (Judson Gauthier) System Review Comments Constitutional: Patient denies any fever or chills. Respiratory: Patient denies any shortness of breath or productive cough. Cardiovascular: Patient denies any chest pain, palpitations or irregular heartbeat. Gastrointestinal: Patient denies any abdominal pain, nausea, vomiting or incontinence of stool. Genitourinary: Patient denies any incontinence of urine. Musculoskeletal: Patient states that her back is sore. She denies any pain to the arms or legs. Neurologic: Patient denies any headache, dizziness, numbness or tingling. ( Judson Gauthier) Exam Results Vital Signs Date Time Temp Pulse Resp B/P Pulse Ox O2 Delivery O2 Flow Rate FiO2 08/12/16 12:00 95.8 121 18 177/98 94 08/12/16 09:52 Nasal Cannula 1.00 Intake and Output 08/11/16 08/11/16 08/12/16 08:00 16:00 00:00 Intake Total 50 ml 480 ml Balance 50 ml 480 ml (Judson Gauthier) Physical Examination GENERAL: Awake & alert, normal affect, no apparent distress. INTEGUMENTARY: Skin warm & dry. Multiple healed wounds to legs, no rashes, ecchymoses or other lesions. HEENT: Normocephalic, atraumatic. NECK: Midline cervical spine NTTP, full AROM, no JVD, trachea midline. RESPIRATORY: CTAB w/o W/R/R, equal excursion, nonlaboured, on RA. CARDIOVASCULAR: S1S2 w/regular but fast rate w/o M/G/R, radial & pedal pulses 2 + bilaterally, cap refill < 2 sec, no pedal edema. GASTROINTESTINAL: Abdomen soft, nontender, positive bowel sounds. MUSCULOSKELETAL: NTTP right lateral hip/thigh. No discomfort to right hip with straight leg raise at 45. Thoracolumbar spine NTTP. Deformity noted to proximal right tibia NTTP. NEUROLOGICAL: AAOx3 Speech clear & appropriate Sensation intact to light touch to all extremities Motor strength 4+ to 5/5 to all extremities this afternoon. (Judson Gauthier) Medical Decision Making Impression and Plan Impression: 1. Approximately 50% L3 and minimal L5 compression fractures. 2. Question of mild right L3-4 motor deficit MRI lumbar spine demonstrates widespread bony metastatic disease with pathological compressions fractures of L3 (severe), L5 (mild) and T12 & L2 (both slight); moderate spinal stenosis at L3; bilateral L3-4 and left L4-5 foraminal stenosis r/t tumor MRI brain demonstrates abnormal enhancemen of the clivus & cribiform plate and the sublingual bone concerning for metatstatic disease, no definite brain mass noted CT chest, abdomen & pelvis demonstrate possible bronchogenic carcinoma and probable metatstaic disease CT neck demonstrates destructive bone lesions indicating metatstatic disease of the left side of the hyoid bone and the right first rib and probable necrotic lymph nodes Multiple pathologic compression fractures r/t metatstatic disease Neuro exam improved Pain to back improved Plan: Discussed plan of care with patient who verbalised her understanding. Primary mgmt per Hospitalist Continue conservative treatment for the lumbar fractures. PT eval & tx Mobilise patient w/assistance OOB w/LSO brace Will intermittently follow (Judson Gauthier) Attending Statement I have personally seen and examined the patient on the date of this note. Pertinent documentation and study results have been reviewed by the undersigned. I have personally developed the treatment plan and performed medical decision making. Agree with findings, exam, and treatment plan as noted above. Neurologic exam remained stable. No evidence of progressive lumbar radiculopathy. Continuing therapy and mobilized out of bed as tolerated with brace. No neurosurgery intervention anticipated at this time. We will follow intermittently while patient in the hospital. (Rojas Stephens MD ) Judson Gauthier Aug 12, 2016 15:24 Rojas Stephens MD Aug 12, 2016 19:14
[2016-08-12] MEDS: MAGNESIUM HYDROXIDE SUSP 30 ML CUP PO PRN (21:39)
[2016-08-12] MEDS: SODIUM CHLORIDE 0.9% FLUSH 10 ML FLUSH IV FLUSH SCH (21:40)
[2016-08-12] MEDS: DOCUSATE SODIUM 100 MG CAP PO SCH (21:40)
[2016-08-13] VITALS (8 sets, daily range): BP systolic 96–161; BP diastolic 65–94; PULSE 98–109; RESP 17–18; TEMP 96.2–97; O2SAT 92–95
[2016-08-13] MEDS: ACETAMINOPHEN/HYDROcodone 325 MG/5 MG TAB PO PRN ×4 (03:46→19:27)
[2016-08-13] MEDS: MAGNESIUM HYDROXIDE SUSP 30 ML CUP PO PRN (08:13)
[2016-08-13] MEDS: DOCUSATE SODIUM 100 MG CAP PO SCH ×2 (08:13→19:27)
[2016-08-13] MEDS: POTASSIUM CHLORIDE 10 MEQ CAP PO SCH ×2 (08:14→19:27)
[2016-08-13] MEDS: ENOXAPARIN SODIUM 40 MG/0.4 ML SYRINGE SQ SCH (08:14)
[2016-08-13] MEDS: SODIUM CHLORIDE 0.9% FLUSH 10 ML FLUSH IV FLUSH SCH ×2 (08:14→19:28)
--- NOTE | 2016-08-13 08:21 | HHI.PR ---
Subjective Remarks This is a pleasant 61 y/o Female seen by Neurosurgery due to Compression fractures L3, L5, continue conservative management, the patient has widespread bony metastatic disease through the rib cage the spine and pelvis, as apparent Primary Lung cancer with diffuse metastatic disease, recommended by Oncology for Port placement, Neck Biopsy. 08/12: Stable in her bedroom status post Left Neck area biopsy and Port placement awaiting final by child care specialist for discharge, discussed with Oncology's [employer]PERVISOR Miss Alea Steven the patient will need to wait for Pathology report before discharge. 08/13: seen in her bedroom stable still awaiting for Pathology report as recommended to wait from child care specialist, no nausea, vomit or diarrhea, discussed with nurse Maggie and with manager of pharmacy. Pathology report in EMR today. Objective Vital Signs Date Time Temp Pulse Resp B/P Pulse Ox O2 Delivery O2 Flow Rate FiO2 08/13/16 04:06 96.8 107 18 161/94 95 08/13/16 00:07 97.0 103 18 135/93 94 08/12/16 20:20 96.9 105 18 169/96 95 08/12/16 19:08 Nasal Cannula 1.00 08/12/16 18:10 93 Nasal Cannula 1.00 08/12/16 15:21 98.1 109 16 140/97 93 08/12/16 12:00 95.8 121 18 177/98 94 08/12/16 09:52 93 Nasal Cannula 1.00 I/O 08/12/16 08/12/16 08/12/16 08/13/16 08/13/16 08/13/16 07:00 15:00 23:00 07:00 15:00 23:00 Intake Total 480 ml 720 ml 240 ml 240 ml Balance 480 ml 720 ml 240 ml 240 ml Intake Oral 480 ml 720 ml 240 ml 240 ml # Voids 4 3 2 3 # Bowel Movements 0 0 0 Result Diagram: 08/11/16 0541 08/11/16 0541 Imaging Last Impressions Chest X-Ray 08/11/16 0000 Signed Impressions: Service Date/Time: Thursday, August 11, 2016 13:33 - CONCLUSION: [id number] in good position without pneumothorax. Danny Ulloa MD FACR Neck CT 08/08/16 0000 Signed Impressions: Service Date/Time: Monday, August 08, 2016 18:47 - CONCLUSION: 1. Destructive bone lesions indicating metastatic disease in the left side of the hyoid bone and right first rib. 2. Low density superficial soft tissue posterior cervical masses likely representing necrotic lymph nodes. Left submandibular necrotic lymph node also noted. 3. No primary malignancy identified in the head and neck. Len Quintero MD Chest CT 08/08/16 Signed Impressions: Service Date/Time: Monday, August 08, 2016 13:10 - CONCLUSION: 1. Left perihilar upper lobe mass measuring 3.3 x 3.4 cm consistent with possible bronchogenic carcinoma. Bronchoscopy may be helpful for evaluation and possible tissue diagnosis. 2. Mediastinal and bilateral hilar lymphadenopathy likely consistent with metastatic lymphadenopathy. 3. Multiple expansile lytic lesions involving the right first, sixth, seventh and eighth ribs as well as the left sixth, seventh and eighth ribs consistent with metastatic disease to the bones. 4. Multiple noncalcified nodules within both lungs consistent with probable metastatic disease with the largest nodule measuring 9 mm on the right and 10 mm on the left. 5. Bilateral adrenal masses also consistent with probable metastatic disease. 6. Small bilateral pleural effusions with adjacent compressive atelectasis. Doroteo Henning MD Brain MRI 08/08/16 Signed Impressions: Service Date/Time: Monday, August 08, 2016 12:23 - CONCLUSION: 1. Abnormal enhancement of the clivus and cribriform plate concerning for metastatic disease the bone. 2. Focal are of abnormal enhancement in the sublingual bone again concerning for metastatic disease. 3. No definite mass identified within the brain parenchyma. Ney Ulloa MD Abdomen/Pelvis CT 08/08/16 Signed Impressions: Service Date/Time: Monday, August 08, 2016 13:10 - CONCLUSION: 1. Enlargement of the uterus with an abnormal appearance measuring 6.1 x 5.2 cm. This would be concerning for an endometrial mass. 2. Severe compression fracture of L3 and scattered bony lesions identified within the lumbar spine and sacrum as above. This is concerning for widespread metastatic disease to bone. 3. Focal enhancing lesion in the erector spinae muscle on the right measuring 2.2 x 1.9 cm. 4. Bilateral adrenal masses concerning for metastatic disease to the adrenal glands. Ney Ulloa MD Lumbar Spine MRI 08/07/16 Signed Impressions: Service Date/Time: July 20:41 - CONCLUSION: 1. 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 There are pathologic compression fractures, severe at L3, mild of L5 and slight of T12 and L2. 2. L3 compression fracture-associated moderate spinal stenosis. 3. Tumor-associated bilateral foraminal stenosis at L3/L4 and left foraminal stenosis at L4/L5. 4. CT the chest, abdomen and pelvis with intravenous and oral contrast recommended for further evaluation and attempted identification of primary tumor. Haroon Tillman MD Lumbar Spine X-Ray 08/06/16 1725 Signed Impressions: Service Date/Time: Saturday, August 06, 2016 18:01 - CONCLUSION: Nonacute appearing compression deformities, moderate to severe of L3 and slight of L5. Haroon Tillman MD Hip X-Ray 08/06/16 1638 Signed Impressions: Service Date/Time: Saturday, August 06, 2016 16:55 - CONCLUSION: 1. No acute fracture or dislocation. 2. Mild degenerative changes involving the right hip joint. Doroteo Henning MD Procedures With Diagnosis of Left Subclavian infusion Port Placement, intraoperative fluoroscopy and Left Submandibular Lymph node biopsy by Doctor Jacob Armstrong Aug 11, 2016 13:28 Other Results Laboratory Tests Test 08/11/16 05:41 White Blood Count 9.4 TH/MM3 Red Blood Count 2.81 MIL/MM3 Hemoglobin 9.9 GM/DL Hematocrit 28.2 % Mean Corpuscular Volume 100.2 FL Mean Corpuscular Hemoglobin 35.1 PG Mean Corpuscular Hemoglobin 35.0 % Concent Red Cell Distribution Width 15.0 % Platelet Count 202 TH/MM3 Mean Platelet Volume 9.2 FL Sodium Level 138 MEQ/L Potassium Level 3.8 MEQ/L Chloride Level 100 MEQ/L Carbon Dioxide Level 31.0 MEQ/L Anion Gap 7 MEQ/L Blood Urea Nitrogen 16 MG/DL Creatinine 0.63 MG/DL Estimat Glomerular Filtration 96 ML/MIN Rate Random Glucose 103 MG/DL Calcium Level 9.3 MG/DL Objective Remarks GENERAL: NAD, A&Ox3 HEAD: Normocephalic. NECK: Supple, trachea midline. No lymphadenopathy. EYES: No scleral icterus. No injection or drainage. CARDIOVASCULAR: Regular rate and rhythm without murmurs, gallops, or rubs. RESPIRATORY: Breath sounds equal bilaterally. No accessory muscle use. GASTROINTESTINAL: Abdomen soft, non-tender, nondistended. MUSCULOSKELETAL: No cyanosis, or edema. SKIN: Warm and dry. NEURO: No focal neurological deficitis. Medications and IVs Current Medications Medications (Trade) Dose Ordered Sig/Sergio Route Start Time Stop Time Status Last Admin (Tylenol) 650 mg Q4H PRN PO 08/06/16 18:45 08/07/16 00:21 (Zofran Inj) 4 mg Q6H PRN IV PUSH 08/06/16 18:45 (Morphine Inj) 2 mg Q3H PRN IV PUSH 08/07/16 02:45 08/10/16 02:06 (Lovenox Inj) 40 mg Q24H SQ 08/07/16 09:00 08/13/16 08:14 (Colace) 100 mg BID PO 08/07/16 21:00 08/13/16 08:13 (Milk Of Magnesia Liq) 30 ml DAILY PRN PO 08/07/16 16:45 08/13/16 08:13 Potassium Chloride 10 meq 10 meq BID PO 08/10/16 21:00 08/13/16 08:14 Lactated Ringer's 1,000 ml @ 30 mls/hr Q24H PRN IV 08/11/16 02:45 08/14/16 02:44 (NS 500 ml Inj) 500 ml @ 30 mls/hr [id number] PRN IV 08/11/16 02:45 08/14/16 02:44 (NS Flush) 2 ml UNSCH PRN IV FLUSH 08/11/16 13:30 (NS Flush) 2 ml BID IV FLUSH 08/11/16 21:00 08/13/16 08:14 ([place] 5-325 Mg) 1 tab Q4H PRN PO 08/11/16 13:30 08/12/16 17:15 ([place] 5-325 Mg) 2 tab Q4H PRN PO 08/11/16 13:30 08/13/16 03:46 A/P Assessment and Plan Assessment and Plan 61-year-old female admitted with hypokalemia and lumbar spine fractures. Metastatic disease at lumbar spine, sacrum, pelvic bones, scalp, adrenals, lung , submandibular soft tissue, cervical soft tissue, ribs, hyoid bone, and endometrium. Biopsy of the posterior neck (soft tissue) performed. Hypokalemia Resolved Lumbar spine fractures May be pathologic based on MRI imaging Continue when necessary pain treatments Conservative management as per Neurosurgery. 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 May have been contributory to hypokalemia Likely responsible for lumbar fractures With Diagnosis of Left Subclavian infusion Port Placement, intraoperative fluoroscopy and Left Submandibular Lymph node biopsy by Doctor Jacob Armstrong Aug 11, 2016 13:28 Awaiting final recommendations by child care specialist and Plan of treatment. DVT prophylaxis Lovenox Discharge Planning Awaiting final recommendations by child care specialist for discharge. Tej Richmond MD Aug 13, 2016 08:21
--- NOTE | 2016-08-13 10:03 | PD.ONC.PN ---
Subjective Subjective Remarks Afebrile overnight Patient sitting up in bed eating breakfast in no distress She states she has plans in place to move in with her mother who will be her side framer during treatment. Her pain is currently well-controlled Objective Data Date Time Temp Pulse Resp B/P Pulse Ox O2 Delivery O2 Flow Rate FiO2 08/13/16 07:28 96.2 106 18 158/90 93 08/13/16 04:06 96.8 107 18 161/94 95 08/13/16 00:07 97.0 103 18 135/93 94 08/12/16 20:20 96.9 105 18 169/96 95 08/12/16 19:08 Nasal Cannula 1.00 08/12/16 18:10 93 Nasal Cannula 1.00 08/12/16 15:21 98.1 109 16 140/97 93 08/12/16 12:00 95.8 121 18 177/98 94 08/13/16 08/13/16 08/13/16 07:00 15:00 23:00 Intake Total 240 ml Balance 240 ml Result Diagram: 08/11/16 0541 08/11/16 0541 Administered Medications Medications (Trade) Dose Ordered Sig/Sergio Route PRN Reason Start Time Stop Time Status Last Admin Dose Admin Acetaminophen (Tylenol) 650 mg Q4H PRN PO FEVER 08/06/16 18:45 08/07/16 00:21 Morphine Sulfate (Morphine Inj) 2 mg Q3H PRN IV PUSH breakthrough pain 08/07/16 02:45 08/10/16 02:06 Enoxaparin Sodium (Lovenox Inj) 40 mg Q24H SQ 08/07/16 09:00 08/13/16 08:14 Docusate Sodium (Colace) 100 mg BID PO 08/07/16 21:00 08/13/16 08:13 Magnesium Hydroxide (Milk Of Magnesia Liq) 30 ml DAILY PRN PO Constipation 08/07/16 16:45 08/13/16 08:13 Potassium Chloride (KCl) 10 meq BID PO 08/10/16 21:00 08/13/16 08:14 Sodium Chloride (NS Flush) 2 ml BID IV FLUSH 08/11/16 21:00 08/13/16 08:14 Acetaminophen/ Hydrocodone Bitart ([place] 5-325 Mg) 1 tab Q4H PRN PO PAIN SCALE 1 TO 5 08/11/16 13:30 08/12/16 17:15 Acetaminophen/ Hydrocodone Bitart ([place] 5-325 Mg) 2 tab Q4H PRN PO PAIN SCALE 6 TO 10 08/11/16 13:30 08/13/16 03:46 Objective Remarks GENERAL: Older female, lying in bed in no distress SKIN: Warm and dry. Dressing to left upper chest from [id number] placement. No oozing HEAD: Normocephalic. EYES: No injection or drainage. NECK: Dressing covering left neck from biopsy. R posterior soft mobile mass. L post auricular somewhat immobile nodule. CARDIOVASCULAR: +S1/S2. RESPIRATORY: Clear posteriorly. Breathing unlabored. GASTROINTESTINAL: Abdomen soft, non-tender, nondistended. EXTREMITIES: No edema. MUSCULOSKELETAL: Generalized weakness NEUROLOGICAL: Alert, Normal speech. Moving all extremities. Assessment/Plan Assessment 61y/o female with suspected lung cancer with widespread bony metastatic disease. Presented to ED with back pain x 8 weeks and worsening pain and developing urinary incontinence. L MRI showed widespread mets to lumbar, sacrum and bony pelvis. compression fx at L3, 5, T12 and L2. Plan 1. Per rad onc she will start XRT this afternoon to L-spine and hip. 2. She should be discharged probably tomorrow with adequate pain medication. 3. Facesheet faxed to [facility], for followup in 7-10 days. 4. Per the pt, she has arrangements to live with her mother as she will be taking care of her during chemotherapy. 5. Await path results. Attending Statement The exam, history, and the medical decision-making described in the above note were completed with the assistance of the mid-level provider. I reviewed and agree with the findings presented. I attest that I had a [id number] encounter with the patient on the same day, and personally performed and documented my assessment and findings in the medical record. pathology back and it is an adenocarcinoma. will do egfr, alk, ros, PDL1 testing. she will begin XRT and can be discharged home tomorrow after tx and will follow as outpatient and start systemic chemo for ki IV adenocarcinoma of the lung after completion of radiation therapy. Crystal Barr Aug 13, 2016 10:03 Jae Kuhn MD Aug 13, 2016 20:11
[2016-08-13] MEDS: HYDROCHLOROTHIAZIDE 12.5 MG CAP PO SCH (10:39)
[2016-08-14] VITALS (8 sets, daily range): BP systolic 102–150; BP diastolic 69–81; PULSE 99–104; RESP 17–18; TEMP 96.4–97.7; O2SAT 94–98
[2016-08-14] MEDS: ACETAMINOPHEN/HYDROcodone 325 MG/5 MG TAB PO PRN ×4 (03:40→20:12)
--- NOTE | 2016-08-14 08:15 | HHI.PR ---
Subjective Remarks This is a pleasant 61 y/o Female seen by Neurosurgery due to Compression fractures L3, L5, continue conservative management, the patient has widespread bony metastatic disease through the rib cage the spine and pelvis, as apparent Primary Lung cancer with diffuse metastatic disease, recommended by Oncology for Port placement, Neck Biopsy. 08/12: Stable in her bedroom status post Left Neck area biopsy and Port placement awaiting final by outreach specialist for discharge, discussed with Oncology's ELECTRONIC RESOURCES LIBRARIAN Miss Alea Steven the patient will need to wait for Pathology report before discharge. 08/13: Pathology report in EMR today. 08/14: Seen in her bedroom, stable as per Oncology notes she will have Radiation therapy today to the Lumbar spine and then may be discharged placed order for follow up by outreach specialist doctor Jae Kuhn, no nausea, vomit or diarrhea. Objective Vital Signs Date Time Temp Pulse Resp B/P Pulse Ox O2 Delivery O2 Flow Rate FiO2 08/14/16 07:48 97.7 99 18 138/81 94 08/14/16 07:25 Room Air 08/14/16 04:10 96.6 103 17 130/81 95 08/14/16 00:04 97.4 100 17 117/80 95 08/13/16 20:55 95 08/13/16 20:05 96.3 105 17 96/65 95 08/13/16 15:54 96.3 109 18 160/83 93 08/13/16 12:24 94 08/13/16 11:30 96.2 98 18 135/65 92 I/O 08/13/16 08/13/16 08/13/16 08/14/16 08/14/16 08/14/16 07:00 15:00 23:00 07:00 15:00 23:00 Intake Total 240 ml 720 ml 240 ml 120 ml Balance 240 ml 720 ml 240 ml 120 ml Intake Oral 240 ml 720 ml 240 ml 120 ml # Voids 3 2 1 2 # Bowel Movements 0 1 0 0 Result Diagram: 08/11/16 0541 08/11/16 0541 Imaging Last Impressions Chest X-Ray 08/11/16 0000 Signed Impressions: Service Date/Time: Thursday, August 11, 2016 13:33 - CONCLUSION: [id number] in good position without pneumothorax. Danny Ulloa MD FACR Neck CT 08/08/16 0000 Signed Impressions: Service Date/Time: Monday, August 08, 2016 18:47 - CONCLUSION: 1. Destructive bone lesions indicating metastatic disease in the left side of the hyoid bone and right first rib. 2. Low density superficial soft tissue posterior cervical masses likely representing necrotic lymph nodes. Left submandibular necrotic lymph node also noted. 3. No primary malignancy identified in the head and neck. Len Quintero MD Chest CT 08/08/16 Signed Impressions: Service Date/Time: Monday, August 08, 2016 13:10 - CONCLUSION: 1. Left perihilar upper lobe mass measuring 3.3 x 3.4 cm consistent with possible bronchogenic carcinoma. Bronchoscopy may be helpful for evaluation and possible tissue diagnosis. 2. Mediastinal and bilateral hilar lymphadenopathy likely consistent with metastatic lymphadenopathy. 3. Multiple expansile lytic lesions involving the right first, sixth, seventh and eighth ribs as well as the left sixth, seventh and eighth ribs consistent with metastatic disease to the bones. 4. Multiple noncalcified nodules within both lungs consistent with probable metastatic disease with the largest nodule measuring 9 mm on the right and 10 mm on the left. 5. Bilateral adrenal masses also consistent with probable metastatic disease. 6. Small bilateral pleural effusions with adjacent compressive atelectasis. Doroteo Henning MD Brain MRI 08/08/16 Signed Impressions: Service Date/Time: Monday, August 08, 2016 12:23 - CONCLUSION: 1. Abnormal enhancement of the clivus and cribriform plate concerning for metastatic disease the bone. 2. Focal are of abnormal enhancement in the sublingual bone again concerning for metastatic disease. 3. No definite mass identified within the brain parenchyma. Ney Ulloa MD Abdomen/Pelvis CT 08/08/16 0000 Signed Impressions: Service Date/Time: Monday, August 08, 2016 13:10 - CONCLUSION: 1. Enlargement of the uterus with an abnormal appearance measuring 6.1 x 5.2 cm. This would be concerning for an endometrial mass. 2. Severe compression fracture of L3 and scattered bony lesions identified within the lumbar spine and sacrum as above. This is concerning for widespread metastatic disease to bone. 3. Focal enhancing lesion in the erector spinae muscle on the right measuring 2.2 x 1.9 cm. 4. Bilateral adrenal masses concerning for metastatic disease to the adrenal glands. Ney Ulloa MD Lumbar Spine MRI 08/07/16 0000 Signed Impressions: Service Date/Time: July 20:41 - CONCLUSION: 1. 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 There are pathologic compression fractures, severe at L3, mild of L5 and slight of T12 and L2. 2. L3 compression fracture-associated moderate spinal stenosis. 3. Tumor-associated bilateral foraminal stenosis at L3/L4 and left foraminal stenosis at L4/L5. 4. CT the chest, abdomen and pelvis with intravenous and oral contrast recommended for further evaluation and attempted identification of primary tumor. Haroon Tillman MD Lumbar Spine X-Ray 08/06/16 1725 Signed Impressions: Service Date/Time: Saturday, August 06, 2016 18:01 - CONCLUSION: Nonacute appearing compression deformities, moderate to severe of L3 and slight of L5. Haroon Tillman MD Hip X-Ray 08/06/16 1638 Signed Impressions: Service Date/Time: Saturday, August 06, 2016 16:55 - CONCLUSION: 1. No acute fracture or dislocation. 2. Mild degenerative changes involving the right hip joint. Doroteo Henning MD Procedures With Diagnosis of Left Subclavian infusion Port Placement, intraoperative fluoroscopy and Left Submandibular Lymph node biopsy by Doctor Jacob Armstrong Aug 11, 2016 13:28 Other Results Laboratory Tests Test 08/11/16 05:41 White Blood Count 9.4 TH/MM3 Red Blood Count 2.81 MIL/MM3 Hemoglobin 9.9 GM/DL Hematocrit 28.2 % Mean Corpuscular Volume 100.2 FL Mean Corpuscular Hemoglobin 35.1 PG Mean Corpuscular Hemoglobin 35.0 % Concent Red Cell Distribution Width 15.0 % Platelet Count 202 TH/MM3 Mean Platelet Volume 9.2 FL Sodium Level 138 MEQ/L Potassium Level 3.8 MEQ/L Chloride Level 100 MEQ/L Carbon Dioxide Level 31.0 MEQ/L Anion Gap 7 MEQ/L Blood Urea Nitrogen 16 MG/DL Creatinine 0.63 MG/DL Estimat Glomerular Filtration 96 ML/MIN Rate Random Glucose 103 MG/DL Calcium Level 9.3 MG/DL Objective Remarks GENERAL: NAD, A&Ox3 HEAD: Normocephalic. NECK: Supple, trachea midline. No lymphadenopathy. EYES: No scleral icterus. No injection or drainage. CARDIOVASCULAR: Regular rate and rhythm without murmurs, gallops, or rubs. RESPIRATORY: Breath sounds equal bilaterally. No accessory muscle use. GASTROINTESTINAL: Abdomen soft, non-tender, nondistended. MUSCULOSKELETAL: No cyanosis, or edema. SKIN: Warm and dry. NEURO: No focal neurological deficitis. Medications and IVs Current Medications Medications (Trade) Dose Ordered Sig/Sergio Route Start Time Stop Time Status Last Admin (Tylenol) 650 mg Q4H PRN PO 08/06/16 18:45 08/07/16 00:21 (Zofran Inj) 4 mg Q6H PRN IV PUSH 08/06/16 18:45 (Morphine Inj) 2 mg Q3H PRN IV PUSH 08/07/16 02:45 08/10/16 02:06 (Lovenox Inj) 40 mg Q24H SQ 08/07/16 09:00 08/13/16 08:14 (Colace) 100 mg BID PO 08/07/16 21:00 08/13/16 19:27 (Milk Of Magnesia Liq) 30 ml DAILY PRN PO 08/07/16 16:45 08/13/16 08:13 (KCl) 10 meq BID PO 08/10/16 21:00 08/13/16 19:27 (NS Flush) 2 ml UNSCH PRN IV FLUSH 08/11/16 13:30 (NS Flush) 2 ml BID IV FLUSH 08/11/16 21:00 08/13/16 08:14 ([place] 5-325 Mg) 1 tab Q4H PRN PO 08/11/16 13:30 08/12/16 17:15 ([place] 5-325 Mg) 2 tab Q4H PRN PO 08/11/16 13:30 08/14/16 03:40 (Microzide) 12.5 mg DAILY PO 08/13/16 09:00 08/13/16 10:39 A/P Assessment and Plan Assessment and Plan 61-year-old female admitted with hypokalemia and lumbar spine fractures. Metastatic disease at lumbar spine, sacrum, pelvic bones, scalp, adrenals, lung, submandibular soft tissue, cervical soft tissue, ribs, hyoid bone, and endometrium. Biopsy of the posterior neck (soft tissue) performed. Hypokalemia Resolved will continue potassium replacement, but will need to follow with Oncology in one week and follow with new BMP Lumbar spine fractures May be pathologic based on MRI imaging Continue when necessary pain treatments Conservative management as per Neurosurgery. 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 May have been contributory to hypokalemia Likely responsible for lumbar fractures, today recommended by Oncology for radiation Oncology and then discharge home. With Diagnosis of Left Subclavian infusion Port Placement, intraoperative fluoroscopy and Left Submandibular Lymph node biopsy by Doctor Jacob Armstrong Aug 11, 2016 13:28 as per Oncology to discharge Home after Radiation oncology evaluation and treatment to the lumbar spine. Hypertension today controlled hypertension will need to follow with PCP to start medicines or not DVT prophylaxis Lovenox Discharge Planning Discharge after Radiation Oncology management to Lumbar spine given today. Tej Richmond MD Aug 14, 2016 08:15
[2016-08-14] MEDS ORDERED: HYDR-3516 PO (08:44)
--- NOTE | 2016-08-14 08:54 | HHI.DS ---
Discharge Summary Admission Date Aug 06, 2016 at 19:52 Discharge Date: Aug 14, 2016 Admitting Diagnosis Hypokalemia (1) Hypokalemia ICD Code: E87.6 Diagnosis: Principal (2) Metastatic adenocarcinoma ICD Code: C79.9 Diagnosis: Principal (3) Lumbar compression fracture ICD Code: S32.000A Diagnosis: Principal Procedures With Diagnosis of Left Subclavian infusion Port Placement, intraoperative fluoroscopy and Left Submandibular Lymph node biopsy by Doctor Jacob Armstrong Aug 11, 2016 13:28 Brief History - From Admission right hip pain for one month came to hospital then but htought she strained her lower back tehn was using walker since then almost fell few times with walker was sitting on edge of bed and started to get up, and fell backwards onto the bed many times she was walking and fell with walker was told to take muscle relaxors adn initinally helped could not get to bathroom - urine incontinence have not had bowel movements in weeks has been eating very little no fever no nausea/ no vomiting/ no diarrhea no blood no abdominal pain/ no chest pain/ no sob was taking antihistamine and this caused her chest to hurt and thus stopped CBC/BMP: 08/11/16 0541 08/11/16 0541 Imaging Last Impressions Chest X-Ray 08/11/16 0000 Signed Impressions: Service Date/Time: Thursday, August 11, 2016 13:33 - CONCLUSION: [id number] in good position without pneumothorax. Danny Ulloa MD FACR Neck CT 08/08/16 0000 Signed Impressions: Service Date/Time: Monday, August 08, 2016 18:47 - CONCLUSION: 1. Destructive bone lesions indicating metastatic disease in the left side of the hyoid bone and right first rib. 2. Low density superficial soft tissue posterior cervical masses likely representing necrotic lymph nodes. Left submandibular necrotic lymph node also noted. 3. No primary malignancy identified in the head and neck. Len Quintero MD Chest CT 08/08/16 0000 Signed Impressions: Service Date/Time: Monday, August 08, 2016 13:10 - CONCLUSION: 1. Left perihilar upper lobe mass measuring 3.3 x 3.4 cm consistent with possible bronchogenic carcinoma. Bronchoscopy may be helpful for evaluation and possible tissue diagnosis. 2. Mediastinal and bilateral hilar lymphadenopathy likely consistent with metastatic lymphadenopathy. 3. Multiple expansile lytic lesions involving the right first, sixth, seventh and eighth ribs as well as the left sixth, seventh and eighth ribs consistent with metastatic disease to the bones. 4. Multiple noncalcified nodules within both lungs consistent with probable metastatic disease with the largest nodule measuring 9 mm on the right and 10 mm on the left. 5. Bilateral adrenal masses also consistent with probable metastatic disease. 6. Small bilateral pleural effusions with adjacent compressive atelectasis. Doroteo Henning MD Brain MRI 08/08/16 0000 Signed Impressions: Service Date/Time: Monday, August 08, 2016 12:23 - CONCLUSION: 1. Abnormal enhancement of the clivus and cribriform plate concerning for metastatic disease the bone. 2. Focal are of abnormal enhancement in the sublingual bone again concerning for metastatic disease. 3. No definite mass identified within the brain parenchyma. Ney Ulloa MD Abdomen/Pelvis CT 08/08/16 0000 Signed Impressions: Service Date/Time: Monday, August 08, 2016 13:10 - CONCLUSION: 1. Enlargement of the uterus with an abnormal appearance measuring 6.1 x 5.2 cm. This would be concerning for an endometrial mass. 2. Severe compression fracture of L3 and scattered bony lesions identified within the lumbar spine and sacrum as above. This is concerning for widespread metastatic disease to bone. 3. Focal enhancing lesion in the erector spinae muscle on the right measuring 2.2 x 1.9 cm. 4. Bilateral adrenal masses concerning for metastatic disease to the adrenal glands. Ney Ulloa MD Lumbar Spine MRI 08/07/16 0000 Signed Impressions: Service Date/Time: July 20:41 - CONCLUSION: 1. 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 There are pathologic compression fractures, severe at L3, mild of L5 and slight of T12 and L2. 2. L3 compression fracture-associated moderate spinal stenosis. 3. Tumor-associated bilateral foraminal stenosis at L3/L4 and left foraminal stenosis at L4/L5. 4. CT the chest, abdomen and pelvis with intravenous and oral contrast recommended for further evaluation and attempted identification of primary tumor. Haroon Tillman MD Lumbar Spine X-Ray 08/06/16 1725 Signed Impressions: Service Date/Time: Saturday, August 06, 2016 18:01 - CONCLUSION: Nonacute appearing compression deformities, moderate to severe of L3 and slight of L5. Haroon Tillman MD Hip X-Ray 08/06/16 1638 Signed Impressions: Service Date/Time: Saturday, August 06, 2016 16:55 - CONCLUSION: 1. No acute fracture or dislocation. 2. Mild degenerative changes involving the right hip joint. Doroteo Henning MD PE at Discharge GENERAL: NAD, A&Ox3 HEAD: Normocephalic. NECK: Supple, trachea midline. No lymphadenopathy. EYES: No scleral icterus. No injection or drainage. CARDIOVASCULAR: Regular rate and rhythm without murmurs, gallops, or rubs. RESPIRATORY: Breath sounds equal bilaterally. No accessory muscle use. GASTROINTESTINAL: Abdomen soft, non-tender, nondistended. MUSCULOSKELETAL: No cyanosis, or edema. SKIN: Warm and dry. NEURO: No focal neurological deficits. Hospital Course This is a pleasant 61 y/o Female seen by Neurosurgery due to Compression fractures L3, L5, continue conservative management, the patient has widespread bony metastatic disease through the rib cage the spine and pelvis, as apparent Primary Lung cancer with diffuse metastatic disease, recommended by Oncology for Port placement, Neck Biopsy. 08/12: Stable in her bedroom status post Left Neck area biopsy and Port placement awaiting final by survival specialist for discharge, discussed with Oncology's ELECTRONIC SECURITY SPECIALIST Miss Alea Steven the patient will need to wait for Pathology report before discharge. 08/13: Pathology report in EMR today. 08/14: Seen in her bedroom, stable as per Oncology notes she will have Radiation therapy today to the Lumbar spine and then may be discharged placed order for follow up by survival specialist doctor Jae Kuhn, no nausea, vomit or diarrhea. Assessment and Plan 61-year-old female admitted with hypokalemia and lumbar spine fractures. Metastatic disease at lumbar spine, sacrum, pelvic bones, scalp, adrenals, lung, submandibular soft tissue, cervical soft tissue, ribs, hyoid bone, and endometrium. Biopsy of the posterior neck (soft tissue) performed. Hypokalemia Resolved will continue potassium replacement, but will need to follow with Oncology in one week and follow with new BMP Lumbar spine fractures May be pathologic based on MRI imaging Continue when necessary pain treatments Conservative management as per Neurosurgery. 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 May have been contributory to hypokalemia Likely responsible for lumbar fractures, today recommended by Oncology for radiation Oncology and then discharge home. With Diagnosis of Left Subclavian infusion Port Placement, intraoperative fluoroscopy and Left Submandibular Lymph node biopsy by Doctor Jacob Armstrong Aug 11, 2016 13:28 as per Oncology to discharge Home after Radiation oncology evaluation and treatment to the lumbar spine. Hypertension today controlled hypertension will need to follow with PCP to start medicines or not DVT prophylaxis Lovenox Discharge Planning Discharge after Radiation Oncology management to Lumbar spine given today. Pt Condition on Discharge: Good Discharge Disposition: Discharge Home Discharge Time: > 30 minutes Discharge Instructions DIET: Follow Instructions for: As Tolerated, No Restrictions Activities you can perform: Regular-No Restrictions Tej Richmond MD Aug 14, 2016 08:53
[2016-08-14] MEDS ORDERED: POTA10CA PO (08:55)
[2016-08-14] MEDS: POTASSIUM CHLORIDE 10 MEQ CAP PO SCH ×2 (09:33→20:12)
[2016-08-14] MEDS: SODIUM CHLORIDE 0.9% FLUSH 10 ML FLUSH IV FLUSH SCH ×2 (09:33→21:42)
[2016-08-14] MEDS: DOCUSATE SODIUM 100 MG CAP PO SCH ×2 (09:33→20:12)
[2016-08-14] MEDS: HYDROCHLOROTHIAZIDE 12.5 MG CAP PO SCH (09:33)
[2016-08-14] MEDS: ENOXAPARIN SODIUM 40 MG/0.4 ML SYRINGE SQ SCH (09:33)
[2016-08-15] VITALS (18 sets, daily range): BP systolic 111–127; BP diastolic 72–94; PULSE 11–117; RESP 15–22; TEMP 96.4–98.4; O2SAT 93–100
[2016-08-15] MEDS: ACETAMINOPHEN/HYDROcodone 325 MG/5 MG TAB PO PRN ×5 (03:47→23:04)
[2016-08-15] MEDS: HYDROCHLOROTHIAZIDE 12.5 MG CAP PO SCH (08:51)
[2016-08-15] MEDS: ENOXAPARIN SODIUM 40 MG/0.4 ML SYRINGE SQ SCH (08:51)
[2016-08-15] MEDS: DOCUSATE SODIUM 100 MG CAP PO SCH ×2 (08:51→21:29)
[2016-08-15] MEDS: POTASSIUM CHLORIDE 10 MEQ CAP PO SCH ×2 (08:51→23:53)
[2016-08-15] MEDS: SODIUM CHLORIDE 0.9% FLUSH 10 ML FLUSH IV FLUSH SCH ×2 (08:55→21:00)
--- NOTE | 2016-08-15 09:29 | PD.ONC.PN ---
Subjective Subjective Remarks Afebrile overnight. Feeling well, ready to go home. [facility] is in the room, working on applying patient for SSI medicaid. Discussed plans to follow up in clinic. Objective Data Date Time Temp Pulse Resp B/P Pulse Ox O2 Delivery O2 Flow Rate FiO2 08/15/16 07:45 96.4 102 18 114/80 94 08/15/16 04:00 96.4 96 17 120/80 93 08/15/16 00:23 97.3 117 17 125/91 95 08/14/16 20:53 94 21 08/14/16 19:00 96.9 103 17 150/69 95 08/14/16 16:00 96.4 104 18 127/78 96 08/14/16 13:26 98 2.00 08/14/16 11:22 96.6 102 18 102/74 97 08/15/16 08/15/16 08/15/16 07:00 15:00 23:00 Intake Total 480 ml Balance 480 ml Result Diagram: 08/11/16 0541 08/11/16 0541 Administered Medications Medications (Trade) Dose Ordered Sig/Sergio Route PRN Reason Start Time Stop Time Status Last Admin Dose Admin Acetaminophen (Tylenol) 650 mg Q4H PRN PO FEVER 08/06/16 18:45 08/07/16 00:21 Enoxaparin Sodium (Lovenox Inj) 40 mg Q24H SQ 08/07/16 09:00 08/15/16 08:51 Docusate Sodium (Colace) 100 mg BID PO 08/07/16 21:00 08/15/16 08:51 Magnesium Hydroxide (Milk Of Magnesia Liq) 30 ml DAILY PRN PO Constipation 08/07/16 16:45 08/13/16 08:13 Potassium Chloride (KCl) 10 meq BID PO 08/10/16 21:00 08/15/16 08:51 Sodium Chloride (NS Flush) 2 ml BID IV FLUSH 08/11/16 21:00 08/14/16 09:33 Acetaminophen/ Hydrocodone Bitart ([place] 5-325 Mg) 1 tab Q4H PRN PO PAIN SCALE 1 TO 5 08/11/16 13:30 08/12/16 17:15 Acetaminophen/ Hydrocodone Bitart ([place] 5-325 Mg) 2 tab Q4H PRN PO PAIN SCALE 6 TO 10 08/11/16 13:30 08/15/16 08:52 Hydrochlorothiazide (Microzide) 12.5 mg DAILY PO 08/13/16 09:00 08/15/16 08:51 Objective Remarks GENERAL: Middle aged female, upright in bed in nad. SKIN: Warm and dry. HEAD: Normocephalic. EYES: No injection or drainage. NECK: Supple, trachea midline. CARDIOVASCULAR: Regular rate and rhythm RESPIRATORY: diminished at bases, scattered wheeze. GASTROINTESTINAL: Abdomen soft, non-tender, nondistended. EXTREMITIES: No cyanosis MUSCULOSKELETAL: Adequate muscle tone. NEUROLOGICAL: awake and alert, normal speech. left sided facial droop. able to move eyebrows, able to shrug shoulders. able to move all extremities Assessment/Plan Assessment 61y/o female with metastatic poorly differentiated adenocarcinoma. Presented to ED with back pain x 8 weeks and worsening pain and developing urinary incontinence. L MRI showed widespread mets to lumbar, sacrum and bony pelvis. compression fx at L3, 5, T12 and L2. Plan 1. send pathology for ALK, EGFR, ROS, PDL-1 testing. 2. UPDATE: patient having left sided facial droop without any other neurologic abnormalities. ?met involvement of middle cranial fossa. ?concern that there is involvement of petrous portion of the temporal bone. no weakness elsewhere. no slurred speech. will obtain STAT CT brain, but doubt stroke. consult Neurology. Attending Statement The exam, history, and the medical decision-making described in the above note were completed with the assistance of the mid-level provider. I reviewed and agree with the findings presented. I attest that I had a [id number] encounter with the patient on the same day, and personally performed and documented my assessment and findings in the medical record. based on MRI findings and clinical presentation suspect that facial droop is due to pressure on facial nerve passing through the base of the skull. Will start systemic treatment when stable although one could consider radiation to base of skull. In conversations with her physicians today there is no contraindication to anticoagulation with heparin as there is no evidence of QUALITY CONTROL HEAD bleed and no metastatic disease to brain.. Jaja Steven Aug 15, 2016 09:29 Jae Kuhn MD Aug 15, 2016 22:01
--- NOTE | 2016-08-15 11:18 | HHI.FF ---
Face to Face Verification Diagnosis: (1) Metastatic adenocarcinoma (2) Lumbar compression fracture Physical Therapy Order: Evaluate and Treat, Improve ambulation, Strength and gait training I have seen patient Heather Coto on 08/15/16. My clinical findings support the need for the requested home health care services because: Ltd mobility - disease progression Deconditioned w/ increased weakness I certify that my clinical findings support that this patient is homebound because: Unsafe to leave home unassisted Tej Richmond MD Aug 15, 2016 11:18
[2016-08-15] MEDS ORDERED: GETGO ROLLING W1 MI1 (11:19)
--- NOTE | 2016-08-15 11:20 | HHI.PR ---
Subjective Remarks This is a pleasant 61 y/o Female seen by Neurosurgery due to Compression fractures L3, L5, continue conservative management, the patient has widespread bony metastatic disease through the rib cage the spine and pelvis, as apparent Primary Lung cancer with diffuse metastatic disease, recommended by Oncology for Port placement, Neck Biopsy. 08/12: Stable in her bedroom status post Left Neck area biopsy and Port placement awaiting final by social media marketing specialist for discharge, discussed with Oncology's BED AND BREAKFAST COOK Miss Alea Steven the patient will need to wait for Pathology report before discharge. 08/13: Pathology report in EMR today. 08/14: Seen in her bedroom, stable as per Oncology notes she will have Radiation therapy today to the Lumbar spine and then may be discharged placed order for follow up by social media marketing specialist doctor Jae Kuhn, no nausea, vomit or diarrhea. 08/15: Seen in her bedroom early in the morning, discussed with Patient and Repairer Wood Furniture she was recommended to be discharge after Radiation therapy, Then I have been called by nurse miss Muse due to that the patient developed Chest pain and Diaphoresis, new ECG performed demonstrated Acute Myocardial infarction showing more than 1 mm Q waves on I, II and AVF for Acute Inferior Myocardial Infarction, given Aspirin, and discussed with Doctor Kev Mancera application packaging specialist he agree with transfer of the patient to Cardiac Unit doubt about the possibility for Cardiac Cath for the patient and the patient already was receiving Lovenox for DVT prophylaxis but do not want to give the patient Heparin due to the high risk for Brain Hemorrhage secondary to Brain tumors and Poor terminal manager prognosis for the patient but he will re evaluate the case himself. Objective Vital Signs Date Time Temp Pulse Resp B/P Pulse Ox O2 Delivery O2 Flow Rate FiO2 08/15/16 10:10 95 08/15/16 09:52 18 08/15/16 07:45 96.4 102 18 114/80 94 08/15/16 04:00 96.4 96 17 120/80 93 08/15/16 00:23 97.3 117 17 125/91 95 08/14/16 20:53 94 21 08/14/16 19:00 96.9 103 17 150/69 95 08/14/16 16:00 96.4 104 18 127/78 96 08/14/16 13:26 98 2.00 08/14/16 11:22 96.6 102 18 102/74 97 I/O 08/14/16 08/14/16 08/14/16 08/15/16 08/15/16 08/15/16 07:00 15:00 23:00 07:00 15:00 23:00 Intake Total 120 ml 720 ml 480 ml 480 ml Balance 120 ml 720 ml 480 ml 480 ml Intake Oral 120 ml 720 ml 480 ml 480 ml # Voids 2 4 4 4 # Bowel Movements 0 0 0 0 Result Diagram: 08/11/16 0541 08/11/16 0541 Imaging Last Impressions Chest X-Ray 08/11/16 0000 Signed Impressions: Service Date/Time: Thursday, August 11, 2016 13:33 - CONCLUSION: [id number] in good position without pneumothorax. Danny Ulloa MD FACR Neck CT 08/08/16 0000 Signed Impressions: Service Date/Time: Monday, August 08, 2016 18:47 - CONCLUSION: 1. Destructive bone lesions indicating metastatic disease in the left side of the hyoid bone and right first rib. 2. Low density superficial soft tissue posterior cervical masses likely representing necrotic lymph nodes. Left submandibular necrotic lymph node also noted. 3. No primary malignancy identified in the head and neck. Len Quintero MD Chest CT 08/08/16 0000 Signed Impressions: Service Date/Time: Monday, August 08, 2016 13:10 - CONCLUSION: 1. Left perihilar upper lobe mass measuring 3.3 x 3.4 cm consistent with possible bronchogenic carcinoma. Bronchoscopy may be helpful for evaluation and possible tissue diagnosis. 2. Mediastinal and bilateral hilar lymphadenopathy likely consistent with metastatic lymphadenopathy. 3. Multiple expansile lytic lesions involving the right first, sixth, seventh and eighth ribs as well as the left sixth, seventh and eighth ribs consistent with metastatic disease to the bones. 4. Multiple noncalcified nodules within both lungs consistent with probable metastatic disease with the largest nodule measuring 9 mm on the right and 10 mm on the left. 5. Bilateral adrenal masses also consistent with probable metastatic disease. 6. Small bilateral pleural effusions with adjacent compressive atelectasis. Doroteo Henning MD Brain MRI 08/08/16 0000 Signed Impressions: Service Date/Time: Monday, August 08, 2016 12:23 - CONCLUSION: 1. Abnormal enhancement of the clivus and cribriform plate concerning for metastatic disease the bone. 2. Focal are of abnormal enhancement in the sublingual bone again concerning for metastatic disease. 3. No definite mass identified within the brain parenchyma. Ney Ulloa MD Abdomen/Pelvis CT 08/08/16 0000 Signed Impressions: Service Date/Time: Monday, August 08, 2016 13:10 - CONCLUSION: 1. Enlargement of the uterus with an abnormal appearance measuring 6.1 x 5.2 cm. This would be concerning for an endometrial mass. 2. Severe compression fracture of L3 and scattered bony lesions identified within the lumbar spine and sacrum as above. This is concerning for widespread metastatic disease to bone. 3. Focal enhancing lesion in the erector spinae muscle on the right measuring 2.2 x 1.9 cm. 4. Bilateral adrenal masses concerning for metastatic disease to the adrenal glands. Ney Ulloa MD Lumbar Spine MRI 08/07/16 0000 Signed Impressions: Service Date/Time: July 20:41 - CONCLUSION: 1. 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 There are pathologic compression fractures, severe at L3, mild of L5 and slight of T12 and L2. 2. L3 compression fracture-associated moderate spinal stenosis. 3. Tumor-associated bilateral foraminal stenosis at L3/L4 and left foraminal stenosis at L4/L5. 4. CT the chest, abdomen and pelvis with intravenous and oral contrast recommended for further evaluation and attempted identification of primary tumor. Haroon Tillman MD Lumbar Spine X-Ray 08/06/16 1725 Signed Impressions: Service Date/Time: Saturday, August 06, 2016 18:01 - CONCLUSION: Nonacute appearing compression deformities, moderate to severe of L3 and slight of L5. Haroon Tillman MD Hip X-Ray 08/06/16 1638 Signed Impressions: Service Date/Time: Saturday, August 06, 2016 16:55 - CONCLUSION: 1. No acute fracture or dislocation. 2. Mild degenerative changes involving the right hip joint. Doroteo Henning MD Procedures With Diagnosis of Left Subclavian infusion Port Placement, intraoperative fluoroscopy and Left Submandibular Lymph node biopsy by Doctor Jacob Armstrong Aug 11, 2016 13:28 Other Results Laboratory Tests Test 08/11/16 05:41 White Blood Count 9.4 TH/MM3 Red Blood Count 2.81 MIL/MM3 Hemoglobin 9.9 GM/DL Hematocrit 28.2 % Mean Corpuscular Volume 100.2 FL Mean Corpuscular Hemoglobin 35.1 PG Mean Corpuscular Hemoglobin 35.0 % Concent Red Cell Distribution Width 15.0 % Platelet Count 202 TH/MM3 Mean Platelet Volume 9.2 FL Sodium Level 138 MEQ/L Potassium Level 3.8 MEQ/L Chloride Level 100 MEQ/L Carbon Dioxide Level 31.0 MEQ/L Anion Gap 7 MEQ/L Blood Urea Nitrogen 16 MG/DL Creatinine 0.63 MG/DL Estimat Glomerular Filtration 96 ML/MIN Rate Random Glucose 103 MG/DL Calcium Level 9.3 MG/DL Objective Remarks GENERAL: NAD, A&Ox3, Diaphoresis. HEAD: Normocephalic. NECK: Supple, trachea midline. No lymphadenopathy. EYES: No scleral icterus. No injection or drainage. CARDIOVASCULAR: Regular rate and rhythm without murmurs, gallops, or rubs. RESPIRATORY: Breath sounds equal bilaterally. No accessory muscle use. GASTROINTESTINAL: Abdomen soft, non-tender, nondistended. MUSCULOSKELETAL: No cyanosis, or edema. SKIN: Warm and dry. NEURO: No focal neurological deficits. Medications and IVs Current Medications Medications (Trade) Dose Ordered Sig/Sergio Route Start Time Stop Time Status Last Admin (Tylenol) 650 mg Q4H PRN PO 08/06/16 18:45 08/07/16 00:21 (Zofran Inj) 4 mg Q6H PRN IV PUSH 08/06/16 18:45 (Lovenox Inj) 40 mg Q24H SQ 08/07/16 09:00 08/15/16 08:51 (Colace) 100 mg BID PO 08/07/16 21:00 08/15/16 08:51 (Milk Of Magnesia Liq) 30 ml DAILY PRN PO 08/07/16 16:45 08/13/16 08:13 (KCl) 10 meq BID PO 08/10/16 21:00 08/15/16 08:51 (NS Flush) 2 ml UNSCH PRN IV FLUSH 08/11/16 13:30 (NS Flush) 2 ml BID IV FLUSH 08/11/16 21:00 08/14/16 09:33 ([place] 5-325 Mg) 1 tab Q4H PRN PO 08/11/16 13:30 08/12/16 17:15 ([place] 5-325 Mg) 2 tab Q4H PRN PO 08/11/16 13:30 08/15/16 08:52 (Microzide) 12.5 mg DAILY PO 08/13/16 09:00 08/15/16 08:51 A/P Assessment and Plan Assessment and Plan 61-year-old female admitted with hypokalemia and lumbar spine fractures. Metastatic disease at lumbar spine, sacrum, pelvic bones, scalp, adrenals, lung, submandibular soft tissue, cervical soft tissue, ribs, hyoid bone, and endometrium. Biopsy of the posterior neck (soft tissue) performed. Acute Myocardial Infarction Patient with Q waves more than 1 mm in I, II and AVF for Acute inferior Myocardial infarction the patient developed Chest pain and Diaphoresis, given Aspirin, and discussed with Doctor Kev Mancera application packaging specialist he agree with transfer of the patient to Cardiac Unit doubt about the possibility for Cardiac Cath for the patient and the patient already was receiving Lovenox for DVT prophylaxis but do not want to give the patient Heparin due to the high risk for Brain Hemorrhage secondary to Brain tumors and Poor [facility] prognosis for the patient but he will re evaluate the case himself. Awaiting for Troponin and CKMB not yet results in EMR. Hypokalemia Resolved will continue potassium replacement, but will need to follow with Oncology in one week and follow with new BMP Lumbar spine fractures May be pathologic based on MRI imaging Continue when necessary pain treatments Conservative management as per Neurosurgery. 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 May have been contributory to hypokalemia Likely responsible for lumbar fractures, today recommended by Oncology for radiation Oncology and then discharge home. With Diagnosis of Left Subclavian infusion Port Placement, intraoperative fluoroscopy and Left Submandibular Lymph node biopsy by Doctor Jacob Armstrong Aug 11, 2016 13:28 as per Oncology to discharge Home after Radiation oncology evaluation and treatment to the lumbar spine. at this time okay from social media marketing specialist to discharge Home but I Place social media marketing specialist Doctor Jae Kuhn a call to discuss actual new situation with Acute Myocardial infarction still waiting for Troponin level and CKMB level in the patient. Cardiology Doctor Kev Mancera Following. Hypertension today controlled hypertension will need to follow with PCP to start medicines or not Poor terminal manager Prognosis Discussed with Patient, Nurse Miss Muse, Rapid response team nurse, all questions answered to the best of my abilities I had the pleasure to talk about the case with application packaging specialist Doctor Kev Mancera input and recommendations Appreciated I called her Sister Mrs. Palma Fajardo to the phone number [phone] But no answer left a message I called her Mother Mrs. Leena Manuel to the phone number [phone] but do not let me the possibility to leave a message no answer. DVT prophylaxis Lovenox Discharge Planning No clear for discharge at this time due to Acute Myocardial infarction. Tej Richmond MD Aug 15, 2016 11:20
[2016-08-15] MEDS ORDERED: HEPARIN-D5W INJ 250 ML IV SCH (12:00)
[2016-08-15] MEDS: ASPIRIN 81 MG CHEW TAB CHEW ONE ×2 (12:31→14:44)
[2016-08-15 12:40] LABS: MEAN CELL VOLUME 100.7 FL (80.0-100.0); MEAN CORPUSCULAR HEMOGLOBIN 34.8 PG (27.0-34.0); MEAN CORPUSCULAR HGB CONC 34.5 % (32.0-36.0); PLATELET COUNT 255 TH/MM3 (150-450); RED BLOOD COUNT 3.17 MIL/MM3 (4.00-5.30); RED CELL DISTRIBUTION WIDTH 15.4 % (11.6-17.2); REVIEW FLAG FINAL; WHITE BLOOD COUNT 10.8 TH/MM3 (4.0-11.0)
[2016-08-15] MEDS ORDERED: PILL SPLITTER OTHER PRN (12:45)
[2016-08-15 12:57] LABS: APTT (PATIENT) 29.6 SEC (24.3-30.1); INTERNATIONAL NORMALIZED RATIO 1.1 RATIO; PROTHROMBIN TIME - PATIENT 11.9 SEC (9.8-11.6)
--- NOTE | 2016-08-15 13:32 | PD.CONS ---
HPI Consult Requested By Primary Care Physician Unknown History of Present Illness 61-year-old female with pmhx significant for tobacco abuse admitted with worsening pain of the right hip, the right shoulder, the lower back. She underwent evaluation is found to have abnormalities in a left lung with multiple bony metastasis, bilateral adrenal metastases and large left submandibular and right posterior cervical lymph nodes. This AM patient complaints of a substernal pressure with EKG changes suggestive of ischemia. Cardiology has been consulted for further evaluation and recommendations. Review of Systems Eyes: DENIES: Amaurosis Fugax, Change in vision HEENT: DENIES: Lightheadedness, Change in hearing Respiratory: DENIES: See HPI, Cough, Snoring, Shortness of breath, Wheezing, Sputum production Cardiovascular: DENIES: See HPI, Chest pain, Palpitations, Syncope, Tachycardia Gastrointestinal: DENIES: Nausea, Vomiting, Change in bowel habits, Reflux, Bloody stools, Melena Genitourinary: DENIES: Urinary incontinence, Difficulty voiding Integumentary: DENIES: Rash Neurologic: DENIES: Tingling or numbness, Memory problems, Poor Balance, Stroke symptoms Musculoskeletal: DENIES: Joint pain, Muscle pain, Limited range of motion, Back pain Psychiatric: DENIES: Anxiety, Depression, Sleep disturbances Hematologic: DENIES: Bruising tendencies, Bleeding tendencies Endocrine: DENIES: Weight gain, Weight loss, Thyroid disease Past Family Social History Allergies: Coded Allergies: No Known Allergies (Verified , 07/10/16) Past Medical History Hypertension Past Surgical History C-sections Reported Medications Reported Meds & Active Scripts Active Walker Rolling/GetGo (Device) 1 Mis Mis 1 Ea .ROUTE DIRECTED Potassium Chloride ER (Potassium Chloride) 10 Meq Cap 10 Meq PO BID follow in one week with relocation services specialist and show result of your new BMP and titrate this medicine as needed. Hydrocodone-Acetaminophen 5-325 mg Tab 1 Tab PO Q4H PRN DO NOT TAKE THIS MEDICINE IF YOU WILL DRIVE A CAR OR USE A MACHINE, ONLY USE IT WHEN RESTING AT HOME. Active Ordered Medications Current Medications Medications (Trade) Dose Ordered Sig/Sergio Route Start Time Stop Time Status Last Admin (Tylenol) 650 mg Q4H PRN PO 08/06/16 18:45 08/07/16 00:21 (Zofran Inj) 4 mg Q6H PRN IV PUSH 08/06/16 18:45 (Lovenox Inj) 40 mg Q24H SQ 08/07/16 09:00 08/15/16 08:51 (Colace) 100 mg BID PO 08/07/16 21:00 08/15/16 08:51 (Milk Of Magnesia Liq) 30 ml DAILY PRN PO 08/07/16 16:45 08/13/16 08:13 (KCl) 10 meq BID PO 08/10/16 21:00 08/15/16 08:51 (NS Flush) 2 ml UNSCH PRN IV FLUSH 08/11/16 13:30 (NS Flush) 2 ml BID IV FLUSH 08/11/16 21:00 08/14/16 09:33 ([place] 5-325 Mg) 1 tab Q4H PRN PO 08/11/16 13:30 08/12/16 17:15 ([place] 5-325 Mg) 2 tab Q4H PRN PO 08/11/16 13:30 08/15/16 08:52 (Microzide) 12.5 mg DAILY PO 08/13/16 09:00 08/15/16 08:51 (Lopressor) 12.5 mg Q12HR PO 08/15/16 12:15 (Pill Splitter) 1 ea UNSCH PRN OTHER 08/15/16 12:45 Family History mother with the pacemaker and a history of uterine cancer in an older sister with a history of colon cancer. Social History smoker Physical Exam Vital Signs Vital Signs Date Time Temp Pulse Resp B/P Pulse Ox O2 Delivery O2 Flow Rate FiO2 08/15/16 10:10 95 08/15/16 09:52 18 08/15/16 07:45 96.4 102 18 114/80 94 08/15/16 04:00 96.4 96 17 120/80 93 08/15/16 00:23 97.3 117 17 125/91 95 08/14/16 20:53 94 21 08/14/16 19:00 96.9 103 17 150/69 95 08/14/16 16:00 96.4 104 18 127/78 96 Physical Exam GENERAL: Well-nourished, well-developed patient. SKIN: Warm and dry. HEAD: Normocephalic. EYES: No scleral icterus. No injection or drainage. NECK: Supple, trachea midline. No JVD or lymphadenopathy. CARDIOVASCULAR: Regular rate and rhythm without murmurs, gallops, or rubs. RESPIRATORY: Breath sounds equal bilaterally. No accessory muscle use. GASTROINTESTINAL: Abdomen soft, non-tender, nondistended. EXTREMITIES: No cyanosis, or edema. NEUROLOGICAL: Awake, alert, and oriented x 3. Non-focal. Laboratory Laboratory Tests Test 08/15/16 12:25 White Blood Count 10.8 Red Blood Count 3.17 Hemoglobin 11.0 Hematocrit 32.0 Mean Corpuscular Volume 100.7 Mean Corpuscular Hemoglobin 34.8 Mean Corpuscular Hemoglobin 34.5 Concent Red Cell Distribution Width 15.4 Platelet Count 255 Mean Platelet Volume 8.7 Prothrombin Time 11.9 Prothromb Time International 1.1 Ratio Activated Partial 29.6 Thromboplast Time Total Creatine Kinase 44 Troponin I 1.51 Result Diagram: 08/15/16 1225 08/11/16 0541 Imaging Last Impressions Chest X-Ray 08/11/16 0000 Signed Impressions: Service Date/Time: Thursday, August 11, 2016 13:33 - CONCLUSION: [id number] in good position without pneumothorax. Danny Ulloa MD FACR Neck CT 08/08/16 0000 Signed Impressions: Service Date/Time: Monday, August 08, 2016 18:47 - CONCLUSION: 1. Destructive bone lesions indicating metastatic disease in the left side of the hyoid bone and right first rib. 2. Low density superficial soft tissue posterior cervical masses likely representing necrotic lymph nodes. Left submandibular necrotic lymph node also noted. 3. No primary malignancy identified in the head and neck. Len Quintero MD Chest CT 08/08/16 0000 Signed Impressions: Service Date/Time: Monday, August 08, 2016 13:10 - CONCLUSION: 1. Left perihilar upper lobe mass measuring 3.3 x 3.4 cm consistent with possible bronchogenic carcinoma. Bronchoscopy may be helpful for evaluation and possible tissue diagnosis. 2. Mediastinal and bilateral hilar lymphadenopathy likely consistent with metastatic lymphadenopathy. 3. Multiple expansile lytic lesions involving the right first, sixth, seventh and eighth ribs as well as the left sixth, seventh and eighth ribs consistent with metastatic disease to the bones. 4. Multiple noncalcified nodules within both lungs consistent with probable metastatic disease with the largest nodule measuring 9 mm on the right and 10 mm on the left. 5. Bilateral adrenal masses also consistent with probable metastatic disease. 6. Small bilateral pleural effusions with adjacent compressive atelectasis. Doroteo Henning MD Brain MRI 08/08/16 0000 Signed Impressions: Service Date/Time: Monday, August 08, 2016 12:23 - CONCLUSION: 1. Abnormal enhancement of the clivus and cribriform plate concerning for metastatic disease the bone. 2. Focal are of abnormal enhancement in the sublingual bone again concerning for metastatic disease. 3. No definite mass identified within the brain parenchyma. Ney Ulloa MD Abdomen/Pelvis CT 08/08/16 0000 Signed Impressions: Service Date/Time: Monday, August 08, 2016 13:10 - CONCLUSION: 1. Enlargement of the uterus with an abnormal appearance measuring 6.1 x 5.2 cm. This would be concerning for an endometrial mass. 2. Severe compression fracture of L3 and scattered bony lesions identified within the lumbar spine and sacrum as above. This is concerning for widespread metastatic disease to bone. 3. Focal enhancing lesion in the erector spinae muscle on the right measuring 2.2 x 1.9 cm. 4. Bilateral adrenal masses concerning for metastatic disease to the adrenal glands. Ney Ulloa MD Lumbar Spine MRI 08/07/16 0000 Signed Impressions: Service Date/Time: July 20:41 - CONCLUSION: 1. 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 There are pathologic compression fractures, severe at L3, mild of L5 and slight of T12 and L2. 2. L3 compression fracture-associated moderate spinal stenosis. 3. Tumor-associated bilateral foraminal stenosis at L3/L4 and left foraminal stenosis at L4/L5. 4. CT the chest, abdomen and pelvis with intravenous and oral contrast recommended for further evaluation and attempted identification of primary tumor. Haroon Tillman MD Lumbar Spine X-Ray 08/06/16 1725 Signed Impressions: Service Date/Time: Saturday, August 06, 2016 18:01 - CONCLUSION: Nonacute appearing compression deformities, moderate to severe of L3 and slight of L5. Haroon Tillman MD Hip X-Ray 08/06/16 1638 Signed Impressions: Service Date/Time: Saturday, August 06, 2016 16:55 - CONCLUSION: 1. No acute fracture or dislocation. 2. Mild degenerative changes involving the right hip joint. Doroteo Henning MD Assessment and Plan Problem List: (1) CAD (coronary artery disease) Assessment and Plan: 61 y/o F with being work up for Lung CA with mets consulted for an episode of chest pressure this am, also having new neurological deficits ?mets vs vascular etiology. She remains hemodynamically stable, chest pain free. First set of troponin elevated. EKG no signs of acute ST changes. Head CT unremarkable, awaiting MRI. Cardiac risk factors Age, HTN and smoking. DDx of chest pain in this case ACS vs PE. However given mets to brain and new neurological deficits she is not a candidate for LHC/PCI at this time. Regarding anticoagulation she needs re-evaluation by Neurology/ Neurosurgery to comment on this. Recommendations: 1. Consider Chest CTA to r/o PE. 2. Medical management or NSTEMI with ASA, Plavix, Statins, Beta-Blockers, ACEi, Heparin 3. 2Dechocardiogram Thank you for the opportunity to participate in the care of this patient (2) Chest pain (3) CHF (congestive heart failure) (4) HTN (hypertension) (5) Metastatic adenocarcinoma Kev Goncalves MD Aug 15, 2016 13:32
--- NOTE | 2016-08-15 13:43 | RADRPT ---
EXAM DATE/TIME: 08/15/2016 13:12 [facility] COMPARISON: No previous studies available for comparison. INDICATIONS : Evaluate for weakness and left side facial droop. RADIATION DOSE: 34.34 CTDIvol (mGy) MEDICAL HISTORY : Cardiovascular disease. Congestive heart failure. Hypertension. SURGICAL HISTORY : None. ENCOUNTER: Initial ACUITY: 2 days PAIN SCALE: 3/10 LOCATION: Bilateral cranial TECHNIQUE: Multiple contiguous axial images were obtained of the head. Using automated exposure control and adj ustment of the mA and/or kV according to patient size, radiation dose was kept as low as reasonably a chievable to obtain optimal diagnostic quality images. DICOM format image data is available electro nically for review and comparison. FINDINGS: CEREBRUM: The ventricles are normal for age. No evidence of midline shift, mass lesion, hemorrhage or acute in farction. No extra-axial fluid collections are seen. POSTERIOR FOSSA: The cerebellum and brainstem are intact. The 4th ventricle is midline. The cerebellopontine angle i s unremarkable. EXTRACRANIAL: The visualized portion of the orbits is intact. SKULL: The calvaria is intact. No evidence of skull fracture. CONCLUSION: Normal examination for a patient of this age. Colt Bird MD on August 15, 2016 at 13:39 Board Certified Radiologist. This report was verified electronically.
[2016-08-15] MEDS: METOPROLOL TARTRATE 25 MG TAB PO SCH ×2 (14:45→21:29)
--- NOTE | 2016-08-15 16:48 | EKG ---
Date Performed: 08/15/2016 Time Performed: 11:27:54 PTAGE: 61 years EKG: Sinus rhythm INFERIOR MYOCARDIAL INFARCTION , OF INDETERMINATE AGE ABNORMAL ECG PREVIOUS TRACING : 08/06/2016 17.11 Compared to prior tracing no significant change DOCTOR: Bon Rivero Interpretating Date/Time 08/15/2016 16:48:04
--- NOTE | 2016-08-15 17:57 | PD.CONS ---
History of Present Illness Service Neurology Consult Requested By [facility] Reason for Consult facial droop Primary Care Physician Unknown History of Present Illness 61 y/o f admitted for back/hip pain found to have metastatic poorly differentiated adenocarcinoma. has been seen by nsx mri brain w/wo contrast, suggests tumor invasion to clivus/skull base. noted to have facial asymmetry, neurology consulted for further evaluation. the pt denies any facial weakness, vision loss, vertigo, dysphagia, focal weakness. c/o mild rt sided hemicranial pain x 1 week but that has improved. denies cp, dyspnea. Past Family Social History Past Medical History 2013- heart failure , htn intially Past Surgical History c section x 3- 1975, 1976, 1984 Allergies: Coded Allergies: No Known Allergies (Verified , 07/10/16) Family History mom- pacemaker oldest sister- cancerof colon Social History smokes 3 cigarrtes all week now no drinking no drugs Review of Systems All other ROS: ROS reviewed as documented in chart Past Family Social History Allergies: Coded Allergies: No Known Allergies (Verified , 07/10/16) Active Ordered Medications Current Medications Medications (Trade) Dose Ordered Sig/Sergio Route Start Time Stop Time Status Last Admin (Tylenol) 650 mg Q4H PRN PO 08/06/16 18:45 08/07/16 00:21 (Zofran Inj) 4 mg Q6H PRN IV PUSH 08/06/16 18:45 (Lovenox Inj) 40 mg Q24H SQ 08/07/16 09:00 08/15/16 08:51 (Colace) 100 mg BID PO 08/07/16 21:00 08/15/16 08:51 (Milk Of Magnesia Liq) 30 ml DAILY PRN PO 08/07/16 16:45 08/13/16 08:13 (KCl) 10 meq BID PO 08/10/16 21:00 08/15/16 08:51 (NS Flush) 2 ml UNSCH PRN IV FLUSH 08/11/16 13:30 (NS Flush) 2 ml BID IV FLUSH 08/11/16 21:00 08/14/16 09:33 ([place] 5-325 Mg) 1 tab Q4H PRN PO 08/11/16 13:30 08/15/16 14:23 ([place] 5-325 Mg) 2 tab Q4H PRN PO 08/11/16 13:30 08/15/16 08:52 (Microzide) 12.5 mg DAILY PO 08/13/16 09:00 08/15/16 08:51 (Lopressor) 12.5 mg Q12HR PO 08/15/16 12:15 08/15/16 14:45 (Pill Splitter) 1 ea UNSCH PRN OTHER 08/15/16 12:45 Atorvastatin Calcium 20 mg 20 mg DAILY PO 08/16/16 09:00 (Heparin-D5W Inj) 250 ml @ 0 mls/hr TITRATE IV 08/15/16 17:00 UNV Exam I&O / VS 08/14/16 08/14/16 08/15/16 15:00 23:00 07:00 Intake Total 720 ml 480 ml 480 ml Balance 720 ml 480 ml 480 ml Intake Oral 720 ml 480 ml 480 ml # Voids 4 4 4 # Bowel Movements 0 0 0 Vital Signs Date Time Temp Pulse Resp B/P Pulse Ox O2 Delivery O2 Flow Rate FiO2 08/15/16 16:00 82 08/15/16 15:30 90 16 127/82 100 08/15/16 15:30 90 08/15/16 15:00 95 15 120/82 100 08/15/16 15:00 95 08/15/16 14:30 100 15 125/84 100 08/15/16 14:30 100 08/15/16 14:00 96 08/15/16 14:00 96 15 126/84 98 08/15/16 13:30 100 08/15/16 13:30 100 17 120/83 99 08/15/16 13:23 103 19 122/86 99 08/15/16 13:23 103 08/15/16 13:00 97 17 118/83 99 08/15/16 13:00 97 08/15/16 12:00 Nasal Cannula 1.00 08/15/16 12:00 98.0 113 22 115/94 94 08/15/16 12:00 11 08/15/16 11:36 96.4 110 16 115/72 95 08/15/16 11:25 96.4 103 15 111/76 95 08/15/16 10:10 95 08/15/16 09:52 18 08/15/16 07:45 96.4 102 18 114/80 94 08/15/16 04:00 96.4 96 17 120/80 93 08/15/16 00:23 97.3 117 17 125/91 95 08/14/16 20:53 94 21 08/14/16 19:00 96.9 103 17 150/69 95 General: Alert and Oriented, No acute distress Eye: EOMI Respiratory: Non-labored respirations Musculoskeletal: ROM Neurologic: Alert, Oriented, Normal sensory, Normal motor, Normal DTR's Psychiatric: Cooperative, Appropriate mood & affect, Normal judgement, Non- suicidal Exam Comments ox 3, no aphasia, mild reduced rt nlf but asymmetric smile with left facial weakness, mild rt tongue deviation, mild weakness of left trap, eomi, vff, no ptosis, ou 3-2mm, no drift Review/Management Diagnosis/Plan: (1) Metastatic adenocarcinoma Plan: suspect invasion of skull base/clivus resulting in subtle cranial neuropathies recs onc input if csf studies would change their management? cleared for anticoagulation from neurology will follow peripherally Reymundo Wall MD Aug 15, 2016 17:57
[2016-08-15] MEDS ORDERED: IOHEXOL 350 MG/ML 10 ML VIAL (for RAD DIAG) IV ONE (18:05)
[2016-08-15] MEDS: HEPARIN-D5W INJ 250 ML IV SCH (18:29)
--- NOTE | 2016-08-15 18:29 | RADRPT ---
EXAM DATE/TIME: 08/15/2016 17:58 [place] COMPARISON: CT THORAX W CONTRAST, August 08, 2016, 13:10. INDICATIONS : Evaluate for pulmonary embolus. IV CONTRAST: 51 cc Omnipaque 350 (iohexol) IV RADIATION DOSE: 23.21 CTDIvol (mGy) MEDICAL HISTORY : Cardiovascular disease. Hypertension. Congestive heart failure. SURGICAL HISTORY : None. ENCOUNTER: Initial ACUITY: 1 day PAIN SCALE: 0/10 LOCATION: chest TECHNIQUE: Volumetric scanning of the chest was performed using a pulmonary embolism protocol MIP images were re constructed. Using automated exposure control and adjustment of the mA and/or kV according to patien t size, radiation dose was kept as low as reasonably achievable to obtain optimal diagnostic quality images. DICOM format image data is available electronically for review and comparison. FINDINGS: Breathing motion artifact degrades the study. No filling defects are observed to suggest pulmonary em boli. Multiple enlarged lymph nodes are seen throughout the hilar structures and mediastinal structur es previously described. These are unchanged from the prior exam. Small posterior layering bilateral pleural effusions with the left slightly larger from the previous exam. The right is stable. Multiple pulmonary nodules are again seen consistent with metastatic disease. These are unchanged from the pr ior exam. Left hilar mass is stable as well. Details are given in the most recent prior exam. Multipl e lytic lesions scattered throughout multiple bilateral ribs. Bilateral adrenal gland nodules. These are not consistent with simple adenomas. CONCLUSION: 1. Breathing motion artifact degrades the study somewhat. 2. No pulmonary emboli. 3. Metastatic disease involving the mediastinum, lung parenchyma, and bony structures. This is stable from the prior exam and detailed in that study. 4. Small bilateral pleural effusions. The left is slightly larger from the prior exam. Gary Haley Jr., MD on August 15, 2016 at 18:23 Board Certified Radiologist. This report was verified electronically.
[2016-08-16] VITALS (18 sets, daily range): BP systolic 96–122; BP diastolic 66–79; PULSE 77–101; RESP 13–25; TEMP 97.5–98.1; O2SAT 96–100
[2016-08-16 01:10] LABS: APTT (PATIENT) 34.7 SEC (24.3-30.1)
[2016-08-16] MEDS: ACETAMINOPHEN/HYDROcodone 325 MG/5 MG TAB PO PRN ×6 (04:53→23:43)
[2016-08-16] MEDS: HYDROCHLOROTHIAZIDE 12.5 MG CAP PO SCH (08:19)
[2016-08-16] MEDS: POTASSIUM CHLORIDE 10 MEQ CAP PO SCH ×2 (08:19→19:41)
[2016-08-16] MEDS: ATORVASTATIN 20 MG TAB PO SCH (08:19)
[2016-08-16] MEDS: DOCUSATE SODIUM 100 MG CAP PO SCH ×2 (08:19→19:41)
[2016-08-16] MEDS: METOPROLOL TARTRATE 25 MG TAB PO SCH ×2 (08:20→19:42)
[2016-08-16] MEDS: SODIUM CHLORIDE 0.9% FLUSH 10 ML FLUSH IV FLUSH SCH ×2 (08:21→19:40)
[2016-08-16 09:43] LABS: APTT (PATIENT) 37.8 SEC (24.3-30.1)
--- NOTE | 2016-08-16 09:58 | PD.CARD.PN ---
Subjective Subjective Remarks no overnight events no complaints Objective Medications Current Medications Medications (Trade) Dose Ordered Sig/Sergio Route Start Time Stop Time Status Last Admin (Tylenol) 650 mg Q4H PRN PO 08/06/16 18:45 08/07/16 00:21 (Zofran Inj) 4 mg Q6H PRN IV PUSH 08/06/16 18:45 (Colace) 100 mg BID PO 08/07/16 21:00 08/16/16 08:19 (Milk Of Magnesia Liq) 30 ml DAILY PRN PO 08/07/16 16:45 08/13/16 08:13 (KCl) 10 meq BID PO 08/10/16 21:00 08/16/16 08:19 (NS Flush) 2 ml UNSCH PRN IV FLUSH 08/11/16 13:30 08/16/16 08:20 (NS Flush) 2 ml BID IV FLUSH 08/11/16 21:00 08/16/16 08:21 ([place] 5-325 Mg) 1 tab Q4H PRN PO 08/11/16 13:30 08/16/16 08:20 ([place] 5-325 Mg) 2 tab Q4H PRN PO 08/11/16 13:30 08/16/16 04:53 (Microzide) 12.5 mg DAILY PO 08/13/16 09:00 08/16/16 08:19 (Lopressor) 12.5 mg Q12HR PO 08/15/16 12:15 08/16/16 08:20 (Pill Splitter) 1 ea UNSCH PRN OTHER 08/15/16 12:45 Atorvastatin Calcium 20 mg 20 mg DAILY PO 08/16/16 09:00 08/16/16 08:19 (Heparin-D5W Inj) 250 ml @ 0 mls/hr TITRATE IV 08/15/16 17:00 08/15/16 18:29 Vital Signs / I&O Vital Signs Date Time Temp Pulse Resp B/P Pulse Ox O2 Delivery O2 Flow Rate FiO2 08/16/16 08:21 100 Nasal Cannula 1.00 08/16/16 06:00 88 08/16/16 05:53 18 08/16/16 04:00 97.5 90 15 122/75 100 08/16/16 04:00 90 08/16/16 02:00 87 08/16/16 00:00 97.7 83 16 117/74 100 08/16/16 00:00 83 08/15/16 22:00 89 08/15/16 20:00 92 08/15/16 20:00 Nasal Cannula 2.00 100 08/15/16 20:00 98.4 92 16 122/78 100 08/15/16 19:05 100 Nasal Cannula 1.00 08/15/16 16:00 82 08/15/16 15:30 90 16 127/82 100 08/15/16 15:30 90 08/15/16 15:00 95 15 120/82 100 08/15/16 15:00 95 08/15/16 14:30 100 15 125/84 100 08/15/16 14:30 100 08/15/16 14:00 96 08/15/16 14:00 96 15 126/84 98 08/15/16 13:30 100 08/15/16 13:30 100 17 120/83 99 08/15/16 13:23 103 19 122/86 99 08/15/16 13:23 103 08/15/16 13:00 97 17 118/83 99 08/15/16 13:00 97 08/15/16 12:00 Nasal Cannula 1.00 08/15/16 12:00 98.0 113 22 115/94 94 08/15/16 12:00 11 08/15/16 11:36 96.4 110 16 115/72 95 08/15/16 11:25 96.4 103 15 111/76 95 08/15/16 10:10 95 I/O 08/15/16 08/15/16 08/15/16 08/16/16 08/16/16 08/16/16 07:00 15:00 23:00 07:00 15:00 23:00 Intake Total 480 ml 530 ml 282 ml 170 ml Output Total 100 ml 300 ml 200 ml Balance 480 ml 430 ml -18 ml -30 ml Intake Oral 480 ml 530 ml 240 ml 120 ml IV Total 42 ml 50 ml Output Urine Total 100 ml 300 ml 200 ml # Voids 4 2 1 1 # Bowel Movements 0 0 Physical Exam GENERAL: Well-nourished, well-developed patient. SKIN: Warm and dry. HEAD: Normocephalic. EYES: No scleral icterus. No injection or drainage. NECK: Supple, trachea midline. No JVD or lymphadenopathy. CARDIOVASCULAR: Regular rate and rhythm without murmurs, gallops, or rubs. RESPIRATORY: Breath sounds equal bilaterally. No accessory muscle use. GASTROINTESTINAL: Abdomen soft, non-tender, nondistended. EXTREMITIES: No cyanosis, or edema. NEUROLOGICAL: Awake, alert, and oriented x 3. Non-focal. Laboratory Laboratory Tests Test 08/15/16 08/15/16 08/16/16 08/16/16 12:25 17:25 00:00 01:00 White Blood Count 10.8 TH/MM3 Red Blood Count 3.17 MIL/MM3 Hemoglobin 11.0 GM/DL Hematocrit 32.0 % Mean Corpuscular Volume 100.7 FL Mean Corpuscular Hemoglobin 34.8 PG Mean Corpuscular Hemoglobin 34.5 % Concent Red Cell Distribution Width 15.4 % Platelet Count 255 TH/MM3 Mean Platelet Volume 8.7 FL Prothrombin Time 11.9 SEC Prothromb Time International 1.1 RATIO Ratio Activated Partial 29.6 SEC 34.7 SEC Thromboplast Time Nasal Screen MRSA (PCR) MRSA NOT DETECTED Total Creatine Kinase 44 U/L 38 U/L 31 U/L Troponin I 1.51 NG/ML 1.82 NG/ML 1.68 NG/ML Test 08/16/16 08:09 Activated Partial 37.8 SEC Thromboplast Time Imaging Last Impressions Head CT 08/15/16 1243 Signed Impressions: Service Date/Time: Monday, August 15, 2016 13:12 - CONCLUSION: Normal examination for a patient of this age. Colt Bird MD CT Angiography 08/15/16 0000 Signed Impressions: Service Date/Time: Monday, August 15, 2016 17:58 - CONCLUSION: 1. Breathing motion artifact degrades the study somewhat. 2. No pulmonary emboli. 3. Metastatic disease involving the mediastinum, lung parenchyma, and bony structures. This is stable from the prior exam and detailed in that study. 4. Small bilateral pleural effusions. The left is slightly larger from the prior exam. Gary Haley Jr., MD Chest X-Ray 08/11/16 0000 Signed Impressions: Service Date/Time: Thursday, August 11, 2016 13:33 - CONCLUSION: [id number] in good position without pneumothorax. Danny Ulloa MD FACR Neck CT 6/16/17 0000 Signed Impressions: Service Date/Time: Monday, August 08, 2016 18:47 - CONCLUSION: 1. Destructive bone lesions indicating metastatic disease in the left side of the hyoid bone and right first rib. 2. Low density superficial soft tissue posterior cervical masses likely representing necrotic lymph nodes. Left submandibular necrotic lymph node also noted. 3. No primary malignancy identified in the head and neck. Len Quintero MD Chest CT 08/08/16 Signed Impressions: Service Date/Time: Monday, August 08, 2016 13:10 - CONCLUSION: 1. Left perihilar upper lobe mass measuring 3.3 x 3.4 cm consistent with possible bronchogenic carcinoma. Bronchoscopy may be helpful for evaluation and possible tissue diagnosis. 2. Mediastinal and bilateral hilar lymphadenopathy likely consistent with metastatic lymphadenopathy. 3. Multiple expansile lytic lesions involving the right first, sixth, seventh and eighth ribs as well as the left sixth, seventh and eighth ribs consistent with metastatic disease to the bones. 4. Multiple noncalcified nodules within both lungs consistent with probable metastatic disease with the largest nodule measuring 9 mm on the right and 10 mm on the left. 5. Bilateral adrenal masses also consistent with probable metastatic disease. 6. Small bilateral pleural effusions with adjacent compressive atelectasis. Doroteo Henning MD Brain MRI 08/08/16 Signed Impressions: Service Date/Time: Monday, August 08, 2016 12:23 - CONCLUSION: 1. Abnormal enhancement of the clivus and cribriform plate concerning for metastatic disease the bone. 2. Focal are of abnormal enhancement in the sublingual bone again concerning for metastatic disease. 3. No definite mass identified within the brain parenchyma. Ney Ulloa MD Abdomen/Pelvis CT 08/08/16 0000 Signed Impressions: Service Date/Time: Monday, August 08, 2016 13:10 - CONCLUSION: 1. Enlargement of the uterus with an abnormal appearance measuring 6.1 x 5.2 cm. This would be concerning for an endometrial mass. 2. Severe compression fracture of L3 and scattered bony lesions identified within the lumbar spine and sacrum as above. This is concerning for widespread metastatic disease to bone. 3. Focal enhancing lesion in the erector spinae muscle on the right measuring 2.2 x 1.9 cm. 4. Bilateral adrenal masses concerning for metastatic disease to the adrenal glands. Ney Ulloa MD Lumbar Spine MRI 08/07/16 0000 Signed Impressions: Service Date/Time: July 20:41 - CONCLUSION: 1. 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 There are pathologic compression fractures, severe at L3, mild of L5 and slight of T12 and L2. 2. L3 compression fracture-associated moderate spinal stenosis. 3. Tumor-associated bilateral foraminal stenosis at L3/L4 and left foraminal stenosis at L4/L5. 4. CT the chest, abdomen and pelvis with intravenous and oral contrast recommended for further evaluation and attempted identification of primary tumor. Haroon Tillman MD Lumbar Spine X-Ray 08/06/16 1725 Signed Impressions: Service Date/Time: Saturday, August 06, 2016 18:01 - CONCLUSION: Nonacute appearing compression deformities, moderate to severe of L3 and slight of L5. Haroon Tillman MD Hip X-Ray 08/06/16 1638 Signed Impressions: Service Date/Time: Saturday, August 06, 2016 16:55 - CONCLUSION: 1. No acute fracture or dislocation. 2. Mild degenerative changes involving the right hip joint. Doroteo Henning MD Assessment and Plan Problem List: (1) NSTEMI (non-ST elevated myocardial infarction) Assessment and Plan: Medical management 1. Cont ASA, Plavix, BB and statin 2. Echo pending 3. D/C Heparin after total of 48hrs (2) CAD (coronary artery disease) (3) Chest pain (4) CHF (congestive heart failure) (5) HTN (hypertension) (6) Metastatic adenocarcinoma Kev Goncalves MD Aug 16, 2016 09:58
[2016-08-16] MEDS ORDERED: NITROGLYCERIN 0.4 MG SL 25 TABS/BTL SL PRN (10:00)
--- NOTE | 2016-08-16 10:40 | ECHRPT ---
Indication: CORONARY ATHEROSCLEROSIS CONCLUSIONS Normal appearing left ventricular function. Normal wall thickness. Mild paradoxical septal motion pr obable from the wide complex rhythm. The EF appears to be 55-60%.Doppler parameters are consistent with impaired left ventricular relaxtion (grade 1 diastolic dysfunction). BP: 111 / 76 HR: 103 Rhythm: Sinus MEASUREMENTS (Male / Female) Normal Values Technical Quality:Very technically difficult study 2D ECHO LVOT Diameter 1.7 cm Aortic Root Diameter 2.8 cm M-MODE AV Cusp Separation MM 1.8 cm DOPPLER AV Peak Velocity 97.9 cm/s AV Peak Gradient 3.8 mmHg AV Mean Gradient 3.0 mmHg AV Velocity Time Integral 20.1 cm LVOT Peak Velocity 88.0 cm/s LVOT Peak Gradient 3.1 mmHg LVOT Velocity Time Integral 19.9 cm LVOT Cardiac Index 3020.9 cm/minm AV Area Cont Eq vti 2.2 cm AV Area Cont Eq pk 2.0 cm Mitral E Point Velocity 65.6 cm/s Mitral A Point Velocity 101.8 cm/s Mitral E to A Ratio 0.6 LV E' Lateral Velocity 5.7 cm/s Mitral E to LV E' Lateral Ratio 11.6 LV E' Septal Velocity 4.8 cm/s Mitral E to LV E' Septal Ratio 13.7 PV Peak Velocity 52.6 cm/s PV Peak Gradient 1.1 mmHg FINDINGS LEFT VENTRICLE The LV was seen well in only one view and that was the apical 4. This showed tjat tjere was basicall y normal appearing left ventricular function. Normal wall thickness. Mild paradoxical septal motion pr obable from the wide complex rhythm. The EF appears to be 55-60%. Doppler parameters are consistent with impaired left ventricular relaxtion (grade 1 diastolic dysfunction). Kev Goncalves MD (Electronically Signed) Final Date:16 August 2016 10:38
--- NOTE | 2016-08-16 14:03 | HHI.PR ---
Subjective Remarks This is a pleasant 61 y/o Female seen by Neurosurgery due to Compression fractures L3, L5, continue conservative management, the patient has widespread bony metastatic disease through the rib cage the spine and pelvis, as apparent Primary Lung cancer with diffuse metastatic disease, recommended by Oncology for Port placement, Neck Biopsy. 08/12: Stable in her bedroom status post Left Neck area biopsy and Port placement awaiting final by microcomputer support specialist for discharge, discussed with Oncology's LOAD OUT WORKER Miss Alea Steven the patient will need to wait for Pathology report before discharge. 08/13: Pathology report in EMR today. 08/14: Seen in her bedroom, stable as per Oncology notes she will have Radiation therapy today to the Lumbar spine and then may be discharged placed order for follow up by microcomputer support specialist doctor Jae Kuhn, no nausea, vomit or diarrhea. 08/15: Seen in her bedroom early in the morning, discussed with Patient and Customer Engineer she was recommended to be discharge after Radiation therapy, Then I have been called by nurse miss Muse due to that the patient developed Chest pain and Diaphoresis, new ECG performed demonstrated Acute Myocardial infarction showing more than 1 mm Q waves on I, II and AVF for Acute Inferior Myocardial Infarction, given Aspirin, and discussed with Doctor Kev Mancera community specialist he agree with transfer of the patient to Cardiac Unit doubt about the possibility for Cardiac Cath for the patient and the patient already was receiving Lovenox for DVT prophylaxis but do not want to give the patient Heparin due to the high risk for Brain Hemorrhage secondary to Brain tumors and Poor terminal system operator prognosis for the patient but he will re evaluate the case himself. 08/16: Seen in her bedroom in the presence of her Sister, and discussed with nurse Miss Miller asked to start on Physical Therapy and Occupational therapy, transfer to Medical floor on telemetry, seen by community specialist due to NSTEMI, recommended to continue Aspirin, Plavix, BB and Statin, also pending Echocardiogram and discontinue heparin on the next 48 hours, he was cleared for Heparin use by Neurology and collection support specialist. Objective Vital Signs Date Time Temp Pulse Resp B/P Pulse Ox O2 Delivery O2 Flow Rate FiO2 08/16/16 12:00 77 08/16/16 12:00 97.9 92 23 102/67 100 08/16/16 11:00 87 18 108/72 100 08/16/16 10:00 95 08/16/16 10:00 95 25 112/78 100 08/16/16 09:00 91 15 112/71 100 08/16/16 08:21 100 Nasal Cannula 1.00 08/16/16 08:00 95 08/16/16 08:00 98.1 95 19 115/76 100 08/16/16 07:00 86 13 114/76 100 08/16/16 07:00 100 Nasal Cannula 2.00 08/16/16 06:00 88 08/16/16 05:53 18 08/16/16 04:00 97.5 90 15 122/75 100 08/16/16 04:00 90 08/16/16 02:00 87 08/16/16 00:00 97.7 83 16 117/74 100 08/16/16 00:00 83 08/15/16 22:00 89 08/15/16 20:00 92 08/15/16 20:00 Nasal Cannula 2.00 100 08/15/16 20:00 98.4 92 16 122/78 100 08/15/16 19:05 100 Nasal Cannula 1.00 08/15/16 16:00 82 08/15/16 15:30 90 16 127/82 100 08/15/16 15:30 90 08/15/16 15:00 95 15 120/82 100 08/15/16 15:00 95 08/15/16 14:30 100 15 125/84 100 08/15/16 14:30 100 I/O 08/15/16 08/15/16 08/15/16 08/16/16 08/16/16 08/16/16 07:00 15:00 23:00 07:00 15:00 23:00 Intake Total 480 ml 530 ml 282 ml 170 ml Output Total 100 ml 300 ml 200 ml Balance 480 ml 430 ml -18 ml -30 ml Intake Oral 480 ml 530 ml 240 ml 120 ml IV Total 42 ml 50 ml Output Urine Total 100 ml 300 ml 200 ml # Voids 4 2 1 1 # Bowel Movements 0 0 Result Diagram: 08/15/16 1225 Imaging Last Impressions Head CT 08/15/16 1243 Signed Impressions: Service Date/Time: Monday, August 15, 2016 13:12 - CONCLUSION: Normal examination for a patient of this age. Colt Bird MD CT Angiography 08/15/16 0000 Signed Impressions: Service Date/Time: Monday, August 15, 2016 17:58 - CONCLUSION: 1. Breathing motion artifact degrades the study somewhat. 2. No pulmonary emboli. 3. Metastatic disease involving the mediastinum, lung parenchyma, and bony structures. This is stable from the prior exam and detailed in that study. 4. Small bilateral pleural effusions. The left is slightly larger from the prior exam. Gary Haley Jr., MD Chest X-Ray 08/11/16 0000 Signed Impressions: Service Date/Time: Thursday, August 11, 2016 13:33 - CONCLUSION: [id number] in good position without pneumothorax. Danny Ulloa MD FACR Neck CT 08/08/16 0000 Signed Impressions: Service Date/Time: Monday, August 08, 2016 18:47 - CONCLUSION: 1. Destructive bone lesions indicating metastatic disease in the left side of the hyoid bone and right first rib. 2. Low density superficial soft tissue posterior cervical masses likely representing necrotic lymph nodes. Left submandibular necrotic lymph node also noted. 3. No primary malignancy identified in the head and neck. Len Quintero MD Chest CT 08/08/16 0000 Signed Impressions: Service Date/Time: Monday, August 08, 2016 13:10 - CONCLUSION: 1. Left perihilar upper lobe mass measuring 3.3 x 3.4 cm consistent with possible bronchogenic carcinoma. Bronchoscopy may be helpful for evaluation and possible tissue diagnosis. 2. Mediastinal and bilateral hilar lymphadenopathy likely consistent with metastatic lymphadenopathy. 3. Multiple expansile lytic lesions involving the right first, sixth, seventh and eighth ribs as well as the left sixth, seventh and eighth ribs consistent with metastatic disease to the bones. 4. Multiple noncalcified nodules within both lungs consistent with probable metastatic disease with the largest nodule measuring 9 mm on the right and 10 mm on the left. 5. Bilateral adrenal masses also consistent with probable metastatic disease. 6. Small bilateral pleural effusions with adjacent compressive atelectasis. Doroteo Henning MD Brain MRI 08/08/16 0000 Signed Impressions: Service Date/Time: Monday, August 08, 2016 12:23 - CONCLUSION: 1. Abnormal enhancement of the clivus and cribriform plate concerning for metastatic disease the bone. 2. Focal are of abnormal enhancement in the sublingual bone again concerning for metastatic disease. 3. No definite mass identified within the brain parenchyma. Ney Ulloa MD Abdomen/Pelvis CT 08/08/16 0000 Signed Impressions: Service Date/Time: Monday, August 08, 2016 13:10 - CONCLUSION: 1. Enlargement of the uterus with an abnormal appearance measuring 6.1 x 5.2 cm. This would be concerning for an endometrial mass. 2. Severe compression fracture of L3 and scattered bony lesions identified within the lumbar spine and sacrum as above. This is concerning for widespread metastatic disease to bone. 3. Focal enhancing lesion in the erector spinae muscle on the right measuring 2.2 x 1.9 cm. 4. Bilateral adrenal masses concerning for metastatic disease to the adrenal glands. Ney Ulloa MD Lumbar Spine MRI 08/07/16 0000 Signed Impressions: Service Date/Time: July 20:41 - CONCLUSION: 1. 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 There are pathologic compression fractures, severe at L3, mild of L5 and slight of T12 and L2. 2. L3 compression fracture-associated moderate spinal stenosis. 3. Tumor-associated bilateral foraminal stenosis at L3/L4 and left foraminal stenosis at L4/L5. 4. CT the chest, abdomen and pelvis with intravenous and oral contrast recommended for further evaluation and attempted identification of primary tumor. Haroon Tillman MD Lumbar Spine X-Ray 08/06/16 1725 Signed Impressions: Service Date/Time: Saturday, August 06, 2016 18:01 - CONCLUSION: Nonacute appearing compression deformities, moderate to severe of L3 and slight of L5. Haroon Tillman MD Hip X-Ray 08/06/16 1638 Signed Impressions: Service Date/Time: Saturday, August 06, 2016 16:55 - CONCLUSION: 1. No acute fracture or dislocation. 2. Mild degenerative changes involving the right hip joint. Doroteo Henning MD Procedures With Diagnosis of Left Subclavian infusion Port Placement, intraoperative fluoroscopy and Left Submandibular Lymph node biopsy by Doctor Jacob Armstrong Aug 11, 2016 13:28 Other Results Laboratory Tests Test 08/15/16 08/16/16 08/16/16 12:25 01:00 08:09 White Blood Count 10.8 TH/MM3 Red Blood Count 3.17 MIL/MM3 Hemoglobin 11.0 GM/DL Hematocrit 32.0 % Mean Corpuscular Volume 100.7 FL Mean Corpuscular Hemoglobin 34.8 PG Mean Corpuscular Hemoglobin 34.5 % Concent Red Cell Distribution Width 15.4 % Platelet Count 255 TH/MM3 Mean Platelet Volume 8.7 FL Prothrombin Time 11.9 SEC Prothromb Time International 1.1 RATIO Ratio Nasal Screen MRSA (PCR) MRSA NOT DETECTED Total Creatine Kinase 31 U/L Troponin I 1.68 NG/ML Activated Partial 37.8 SEC Thromboplast Time Objective Remarks GENERAL: NAD, A&Ox3. HEAD: Normocephalic. NECK: Supple, trachea midline. No lymphadenopathy. EYES: No scleral icterus. No injection or drainage. CARDIOVASCULAR: Regular rate and rhythm without murmurs, gallops, or rubs. RESPIRATORY: Breath sounds equal bilaterally. No accessory muscle use. GASTROINTESTINAL: Abdomen soft, non-tender, nondistended. MUSCULOSKELETAL: No cyanosis, or edema. SKIN: Warm and dry. NEURO: No focal neurological deficits. Medications and IVs Last Impressions Head CT 08/15/16 1243 Signed Impressions: Service Date/Time: Monday, August 15, 2016 13:12 - CONCLUSION: Normal examination for a patient of this age. Colt Bird MD CT Angiography 08/15/16 0000 Signed Impressions: Service Date/Time: Monday, August 15, 2016 17:58 - CONCLUSION: 1. Breathing motion artifact degrades the study somewhat. 2. No pulmonary emboli. 3. Metastatic disease involving the mediastinum, lung parenchyma, and bony structures. This is stable from the prior exam and detailed in that study. 4. Small bilateral pleural effusions. The left is slightly larger from the prior exam. Gary Haley Jr., MD Chest X-Ray 08/11/16 0000 Signed Impressions: Service Date/Time: Thursday, August 11, 2016 13:33 - CONCLUSION: [id number] in good position without pneumothorax. Danny Ulloa MD FACR Neck CT 08/08/16 0000 Signed Impressions: Service Date/Time: Monday, August 08, 2016 18:47 - CONCLUSION: 1. Destructive bone lesions indicating metastatic disease in the left side of the hyoid bone and right first rib. 2. Low density superficial soft tissue posterior cervical masses likely representing necrotic lymph nodes. Left submandibular necrotic lymph node also noted. 3. No primary malignancy identified in the head and neck. Len Quintero MD Chest CT 08/08/16 0000 Signed Impressions: Service Date/Time: Monday, August 08, 2016 13:10 - CONCLUSION: 1. Left perihilar upper lobe mass measuring 3.3 x 3.4 cm consistent with possible bronchogenic carcinoma. Bronchoscopy may be helpful for evaluation and possible tissue diagnosis. 2. Mediastinal and bilateral hilar lymphadenopathy likely consistent with metastatic lymphadenopathy. 3. Multiple expansile lytic lesions involving the right first, sixth, seventh and eighth ribs as well as the left sixth, seventh and eighth ribs consistent with metastatic disease to the bones. 4. Multiple noncalcified nodules within both lungs consistent with probable metastatic disease with the largest nodule measuring 9 mm on the right and 10 mm on the left. 5. Bilateral adrenal masses also consistent with probable metastatic disease. 6. Small bilateral pleural effusions with adjacent compressive atelectasis. Doroteo Henning MD Brain MRI 08/08/16 0000 Signed Impressions: Service Date/Time: Monday, August 08, 2016 12:23 - CONCLUSION: 1. Abnormal enhancement of the clivus and cribriform plate concerning for metastatic disease the bone. 2. Focal are of abnormal enhancement in the sublingual bone again concerning for metastatic disease. 3. No definite mass identified within the brain parenchyma. Ney Ulloa MD Abdomen/Pelvis CT 08/08/16 0000 Signed Impressions: Service Date/Time: Monday, August 08, 2016 13:10 - CONCLUSION: 1. Enlargement of the uterus with an abnormal appearance measuring 6.1 x 5.2 cm. This would be concerning for an endometrial mass. 2. Severe compression fracture of L3 and scattered bony lesions identified within the lumbar spine and sacrum as above. This is concerning for widespread metastatic disease to bone. 3. Focal enhancing lesion in the erector spinae muscle on the right measuring 2.2 x 1.9 cm. 4. Bilateral adrenal masses concerning for metastatic disease to the adrenal glands. Ney Ulloa MD Lumbar Spine MRI 08/07/16 0000 Signed Impressions: Service Date/Time: July 20:41 - CONCLUSION: 1. 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 There are pathologic compression fractures, severe at L3, mild of L5 and slight of T12 and L2. 2. L3 compression fracture-associated moderate spinal stenosis. 3. Tumor-associated bilateral foraminal stenosis at L3/L4 and left foraminal stenosis at L4/L5. 4. CT the chest, abdomen and pelvis with intravenous and oral contrast recommended for further evaluation and attempted identification of primary tumor. Haroon Tillman MD Lumbar Spine X-Ray 08/06/16 1725 Signed Impressions: Service Date/Time: Saturday, August 06, 2016 18:01 - CONCLUSION: Nonacute appearing compression deformities, moderate to severe of L3 and slight of L5. Haroon Tillman MD Hip X-Ray 08/06/16 1638 Signed Impressions: Service Date/Time: Saturday, August 06, 2016 16:55 - CONCLUSION: 1. No acute fracture or dislocation. 2. Mild degenerative changes involving the right hip joint. Doroteo Henning MD A/P Assessment and Plan Assessment and Plan 61-year-old female admitted with hypokalemia and lumbar spine fractures. Metastatic disease at lumbar spine, sacrum, pelvic bones, scalp, adrenals, lung, submandibular soft tissue, cervical soft tissue, ribs, hyoid bone, and endometrium. Biopsy of the posterior neck (soft tissue) performed. Acute Myocardial Infarction, NSTEMI Patient with Q waves more than 1 mm in I, II and AVF for Acute inferior Myocardial infarction the patient developed Chest pain and Diaphoresis, given Aspirin, recommended to continue Plavix and Heparin for the next 48 hours. patient without chest pain. Hypokalemia Resolved will continue potassium replacement, but will need to follow with Oncology in one week and follow with new BMP Lumbar spine fractures May be pathologic based on MRI imaging Continue when necessary pain treatments Conservative management as per Neurosurgery. 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 May have been contributory to hypokalemia Likely responsible for lumbar fractures, today recommended by Oncology for radiation Oncology and then discharge home. With Diagnosis of Left Subclavian infusion Port Placement, intraoperative fluoroscopy and Left Submandibular Lymph node biopsy by Doctor Jacob Armstrong Aug 11, 2016 13:28 as per Oncology to discharge Home after Radiation oncology evaluation and treatment to the lumbar spine. at this time okay from microcomputer support specialist to discharge Home. Hypertension controlled. Poor terminal system operator Prognosis Discussed with Patient, Nurse Miss Miller, also with her Sister Mrs. Palma Fajardo, all questions answered to the best of my abilities. DVT prophylaxis Lovenox Discharge Planning awaiting final recommendations by community specialist for discharge. Tej Richmond MD Aug 16, 2016 14:03 Poor terminal system operator Prognosis Discussed with Patient, Nurse Miss Muse, Rapid response team nurse, all questions answered to the best of my abilities I had the pleasure to talk about the case with community specialist Doctor Kev Mancera input and recommendations Appreciated I called her Sister Mrs. Palma Fajardo to the phone number [phone] But no answer left a message I called her Mother Mrs. Leena Manuel to the phone number [phone] but do not let me the possibility to leave a message no answer. DVT prophylaxis Lovenox Discharge Planning No clear for discharge at this time due to Acute Myocardial infarction. Tej Richmond MD Aug 16, 2016 14:03
[2016-08-16 17:36] LABS: APTT (PATIENT) 39.2 SEC (24.3-30.1)
[2016-08-17] VITALS (9 sets, daily range): BP systolic 99–164; BP diastolic 59–82; PULSE 69–124; RESP 16–18; TEMP 97.3–97.9; O2SAT 92–95
[2016-08-17 00:39] LABS: APTT (PATIENT) 76.9 SEC (24.3-30.1)
[2016-08-17] MEDS: HEPARIN-D5W INJ 250 ML IV SCH (02:14)
[2016-08-17] MEDS: ACETAMINOPHEN/HYDROcodone 325 MG/5 MG TAB PO PRN ×4 (04:00→20:24)
[2016-08-17] MEDS: POTASSIUM CHLORIDE 10 MEQ CAP PO SCH ×2 (08:20→20:23)
[2016-08-17] MEDS: SODIUM CHLORIDE 0.9% FLUSH 10 ML FLUSH IV FLUSH SCH ×2 (08:20→20:24)
[2016-08-17] MEDS: DOCUSATE SODIUM 100 MG CAP PO SCH ×2 (08:20→20:22)
[2016-08-17] MEDS: HYDROCHLOROTHIAZIDE 12.5 MG CAP PO SCH (08:21)
[2016-08-17] MEDS: CLOPIDOGREL 75 MG TAB PO SCH (08:21)
[2016-08-17] MEDS: ATORVASTATIN 20 MG TAB PO SCH (08:21)
[2016-08-17] MEDS: METOPROLOL TARTRATE 25 MG TAB PO SCH ×2 (08:24→20:23)
[2016-08-17 08:40] LABS: APTT (PATIENT) 32.7 SEC (24.3-30.1)
--- NOTE | 2016-08-17 09:34 | HHI.PR ---
Subjective Remarks This is a pleasant 61 y/o Female seen by Neurosurgery due to Compression fractures L3, L5, continue conservative management, the patient has widespread bony metastatic disease through the rib cage the spine and pelvis, as apparent Primary Lung cancer with diffuse metastatic disease, recommended by Oncology for Port placement, Neck Biopsy. 08/12: Stable in her bedroom status post Left Neck area biopsy and Port placement awaiting final by marketing finance specialist for discharge, discussed with Oncology's CLOTH BLEACHING RANGE BACK TENDER Miss Alea Steven the patient will need to wait for Pathology report before discharge. 08/13: Pathology report in EMR today. 08/14: Seen in her bedroom, stable as per Oncology notes she will have Radiation therapy today to the Lumbar spine and then may be discharged placed order for follow up by marketing finance specialist doctor Jae Kuhn, no nausea, vomit or diarrhea. 08/15: Seen in her bedroom early in the morning, discussed with Patient and Cured Meats Supervisor she was recommended to be discharge after Radiation therapy, Then I have been called by nurse Almaz due to that the patient developed Chest pain and Diaphoresis, new ECG performed demonstrated Acute Myocardial infarction showing more than 1 mm Q waves on I, II and AVF for Acute Inferior Myocardial Infarction, given Aspirin, and discussed with Doctor Kev Mancera bi specialist he agree with transfer of the patient to Cardiac Unit doubt about the possibility for Cardiac Cath for the patient and the patient already was receiving Lovenox for DVT prophylaxis but do not want to give the patient Heparin due to the high risk for Brain Hemorrhage secondary to Brain tumors and 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 08/16: Seen in her bedroom in the presence of her Sister, and discussed with nurse Miss Miller asked to start on Physical Therapy and Occupational therapy, transfer to Medical floor on telemetry, seen by bi specialist due to NSTEMI, recommended to continue Aspirin, Plavix, BB and Statin, also pending Echocardiogram and discontinue heparin on the next 48 hours, he was cleared for Heparin use by Neurology and pharmacy informatics specialist. 08/17: Stable in her bedroom, no nausea, vomit or diarrhea, as per Cardiology okay to discontinued Heparin, was discontinued but asked to continue Aspirin and Plavix but not yet cleared for discharge. Objective Vital Signs Date Time Temp Pulse Resp B/P Pulse Ox O2 Delivery O2 Flow Rate FiO2 08/17/16 08:15 97.5 104 18 126/71 95 08/17/16 04:00 97.7 91 16 114/59 93 08/17/16 00:00 97.3 69 18 164/78 92 08/16/16 20:45 Room Air 08/16/16 20:42 16 08/16/16 20:30 97.7 91 18 119/79 96 08/16/16 20:00 97.9 92 16 111/70 97 08/16/16 20:00 92 08/16/16 19:00 97 Room Air 08/16/16 18:00 94 08/16/16 16:00 97.7 93 17 105/70 98 08/16/16 16:00 93 08/16/16 15:00 98 17 100/70 99 08/16/16 14:00 99 08/16/16 14:00 99 18 96/66 100 08/16/16 13:00 101 21 105/69 100 08/16/16 12:00 77 08/16/16 12:00 97.9 92 23 102/67 100 08/16/16 11:00 87 18 108/72 100 08/16/16 10:00 95 08/16/16 10:00 95 25 112/78 100 I/O 08/16/16 08/16/16 08/16/16 08/17/16 08/17/16 08/17/16 07:00 15:00 23:00 07:00 15:00 23:00 Intake Total 170 ml 240 ml 120 ml 240 ml Output Total 200 ml 350 ml 250 ml Balance -30 ml -110 ml -130 ml 240 ml Intake Oral 120 ml 240 ml 120 ml 240 ml IV Total 50 ml 0 ml Output Urine Total 200 ml 350 ml 250 ml # Voids 1 3 3 3 # Bowel Movements 0 0 0 Result Diagram: 08/15/16 1225 Imaging Last Impressions Head CT 08/15/16 1243 Signed Impressions: Service Date/Time: Monday, August 15, 2016 13:12 - CONCLUSION: Normal examination for a patient of this age. Colt Bird MD CT Angiography 08/15/16 0000 Signed Impressions: Service Date/Time: Monday, August 15, 2016 17:58 - CONCLUSION: 1. Breathing motion artifact degrades the study somewhat. 2. No pulmonary emboli. 3. Metastatic disease involving the mediastinum, lung parenchyma, and bony structures. This is stable from the prior exam and detailed in that study. 4. Small bilateral pleural effusions. The left is slightly larger from the prior exam. Gary Haley Jr., MD Chest X-Ray 08/11/16 0000 Signed Impressions: Service Date/Time: Thursday, August 11, 2016 13:33 - CONCLUSION: [id number] in good position without pneumothorax. Danny Ulloa MD FACR Neck CT 08/08/16 0000 Signed Impressions: Service Date/Time: Monday, August 08, 2016 18:47 - CONCLUSION: 1. Destructive bone lesions indicating metastatic disease in the left side of the hyoid bone and right first rib. 2. Low density superficial soft tissue posterior cervical masses likely representing necrotic lymph nodes. Left submandibular necrotic lymph node also noted. 3. No primary malignancy identified in the head and neck. Len Quintero MD Chest CT 08/08/16 0000 Signed Impressions: Service Date/Time: Monday, August 08, 2016 13:10 - CONCLUSION: 1. Left perihilar upper lobe mass measuring 3.3 x 3.4 cm consistent with possible bronchogenic carcinoma. Bronchoscopy may be helpful for evaluation and possible tissue diagnosis. 2. Mediastinal and bilateral hilar lymphadenopathy likely consistent with metastatic lymphadenopathy. 3. Multiple expansile lytic lesions involving the right first, sixth, seventh and eighth ribs as well as the left sixth, seventh and eighth ribs consistent with metastatic disease to the bones. 4. Multiple noncalcified nodules within both lungs consistent with probable metastatic disease with the largest nodule measuring 9 mm on the right and 10 mm on the left. 5. Bilateral adrenal masses also consistent with probable metastatic disease. 6. Small bilateral pleural effusions with adjacent compressive atelectasis. Doroteo Henning MD Brain MRI 08/08/16 0000 Signed Impressions: Service Date/Time: Monday, August 08, 2016 12:23 - CONCLUSION: 1. Abnormal enhancement of the clivus and cribriform plate concerning for metastatic disease the bone. 2. Focal are of abnormal enhancement in the sublingual bone again concerning for metastatic disease. 3. No definite mass identified within the brain parenchyma. Ney Ulloa MD Abdomen/Pelvis CT 08/08/16 0000 Signed Impressions: Service Date/Time: Monday, August 08, 2016 13:10 - CONCLUSION: 1. Enlargement of the uterus with an abnormal appearance measuring 6.1 x 5.2 cm. This would be concerning for an endometrial mass. 2. Severe compression fracture of L3 and scattered bony lesions identified within the lumbar spine and sacrum as above. This is concerning for widespread metastatic disease to bone. 3. Focal enhancing lesion in the erector spinae muscle on the right measuring 2.2 x 1.9 cm. 4. Bilateral adrenal masses concerning for metastatic disease to the adrenal glands. Ney Ulloa MD Lumbar Spine MRI 08/07/16 0000 Signed Impressions: Service Date/Time: July 20:41 - CONCLUSION: 1. 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 There are pathologic compression fractures, severe at L3, mild of L5 and slight of T12 and L2. 2. L3 compression fracture-associated moderate spinal stenosis. 3. Tumor-associated bilateral foraminal stenosis at L3/L4 and left foraminal stenosis at L4/L5. 4. CT the chest, abdomen and pelvis with intravenous and oral contrast recommended for further evaluation and attempted identification of primary tumor. Haroon Tillman MD Lumbar Spine X-Ray 08/06/16 1725 Signed Impressions: Service Date/Time: Saturday, August 06, 2016 18:01 - CONCLUSION: Nonacute appearing compression deformities, moderate to severe of L3 and slight of L5. Haroon Tillman MD Hip X-Ray 08/06/16 1638 Signed Impressions: Service Date/Time: Saturday, August 06, 2016 16:55 - CONCLUSION: 1. No acute fracture or dislocation. 2. Mild degenerative changes involving the right hip joint. Doroteo Henning MD Procedures With Diagnosis of Left Subclavian infusion Port Placement, intraoperative fluoroscopy and Left Submandibular Lymph node biopsy by Doctor Jacob Armstrong Aug 11, 2016 13:28 Other Results Laboratory Tests Test 08/15/16 08/16/16 08/17/16 12:25 01:00 08:10 White Blood Count 10.8 TH/MM3 Red Blood Count 3.17 MIL/MM3 Hemoglobin 11.0 GM/DL Hematocrit 32.0 % Mean Corpuscular Volume 100.7 FL Mean Corpuscular Hemoglobin 34.8 PG Mean Corpuscular Hemoglobin 34.5 % Concent Red Cell Distribution Width 15.4 % Platelet Count 255 TH/MM3 Mean Platelet Volume 8.7 FL Prothrombin Time 11.9 SEC Prothromb Time International 1.1 RATIO Ratio Nasal Screen MRSA (PCR) MRSA NOT DETECTED Total Creatine Kinase 31 U/L Troponin I 1.68 NG/ML Activated Partial 32.7 SEC Thromboplast Time Objective Remarks GENERAL: NAD, A&Ox3. HEAD: Normocephalic. NECK: Supple, trachea midline. No lymphadenopathy. EYES: No scleral icterus. No injection or drainage. CARDIOVASCULAR: Regular rate and rhythm without murmurs, gallops, or rubs. RESPIRATORY: Breath sounds equal bilaterally. No accessory muscle use. GASTROINTESTINAL: Abdomen soft, non-tender, nondistended. MUSCULOSKELETAL: No cyanosis, or edema. SKIN: Warm and dry. NEURO: No focal neurological deficits. Medications and IVs Current Medications Medications (Trade) Dose Ordered Sig/Sergio Route Start Time Stop Time Status Last Admin (Tylenol) 650 mg Q4H PRN PO 08/06/16 18:45 08/07/16 00:21 (Zofran Inj) 4 mg Q6H PRN IV PUSH 08/06/16 18:45 (Colace) 100 mg BID PO 08/07/16 21:00 08/17/16 08:20 (Milk Of Magnesia Liq) 30 ml DAILY PRN PO 08/07/16 16:45 08/13/16 08:13 (KCl) 10 meq BID PO 08/10/16 21:00 08/17/16 08:20 (NS Flush) 2 ml UNSCH PRN IV FLUSH 08/11/16 13:30 08/16/16 08:20 (NS Flush) 2 ml BID IV FLUSH 08/11/16 21:00 08/16/16 19:40 ([place] 5-325 Mg) 1 tab Q4H PRN PO 08/11/16 13:30 08/16/16 08:20 ([place] 5-325 Mg) 2 tab Q4H PRN PO 08/11/16 13:30 08/17/16 08:22 (Microzide) 12.5 mg DAILY PO 08/13/16 09:00 08/17/16 08:21 (Lopressor) 12.5 mg Q12HR PO 08/15/16 12:15 08/17/16 08:24 (Pill Splitter) 1 ea UNSCH PRN OTHER 08/15/16 12:45 Atorvastatin Calcium 20 mg 20 mg DAILY PO 08/16/16 09:00 08/17/16 08:21 (Heparin-D5W Inj) 250 ml @ 0 mls/hr TITRATE IV 08/15/16 17:00 08/17/16 02:14 (Plavix) 75 mg DAILY PO 08/17/16 09:00 08/17/16 08:21 (Nitrostat Sl) 0.4 mg Q5M PRN SL 08/16/16 10:00 A/P Assessment and Plan Assessment and Plan 61-year-old female admitted with hypokalemia and lumbar spine fractures. Metastatic disease at lumbar spine, sacrum, pelvic bones, scalp, adrenals, lung, submandibular soft tissue, cervical soft tissue, ribs, hyoid bone, and endometrium. Biopsy of the posterior neck (soft tissue) performed. Acute Myocardial Infarction, NSTEMI Patient with Q waves more than 1 mm in I, II and AVF for Acute inferior Myocardial infarction the patient developed Chest pain and Diaphoresis, given Aspirin, recommended to continue Plavix and Aspirin and discontinue Heparin, will discharge in am tomorrow if okay with Cardiology Hypokalemia Resolved will continue potassium replacement, but will need to follow with Oncology in one week and follow with new BMP Lumbar spine fractures May be pathologic based on MRI imaging Continue when necessary pain treatments Conservative management as per Neurosurgery. 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 May have been contributory to hypokalemia Likely responsible for lumbar fractures, today recommended by Oncology for radiation Oncology and then discharge home. With Diagnosis of Left Subclavian infusion Port Placement, intraoperative fluoroscopy and Left Submandibular Lymph node biopsy by Doctor Jacob Armstrong Aug 11, 2016 13:28 as per Oncology to discharge Home after Radiation oncology evaluation and treatment to the lumbar spine. at this time okay from marketing finance specialist to discharge Home. Hypertension controlled. 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 DVT prophylaxis Lovenox Discharge Planning awaiting final recommendations by bi specialist for discharge. Tej Richmond MD Aug 17, 2016 09:34
--- NOTE | 2016-08-17 11:16 | PD.CARD.PN ---
Subjective Subjective Remarks no cv complaints Objective Medications Current Medications Medications (Trade) Dose Ordered Sig/Sergio Route Start Time Stop Time Status Last Admin (Tylenol) 650 mg Q4H PRN PO 08/06/16 18:45 08/07/16 00:21 (Zofran Inj) 4 mg Q6H PRN IV PUSH 08/06/16 18:45 (Colace) 100 mg BID PO 08/07/16 21:00 08/17/16 08:20 (Milk Of Magnesia Liq) 30 ml DAILY PRN PO 08/07/16 16:45 08/13/16 08:13 (KCl) 10 meq BID PO 08/10/16 21:00 08/17/16 08:20 (NS Flush) 2 ml UNSCH PRN IV FLUSH 08/11/16 13:30 08/16/16 08:20 (NS Flush) 2 ml BID IV FLUSH 08/11/16 21:00 08/16/16 19:40 ([place] 5-325 Mg) 1 tab Q4H PRN PO 08/11/16 13:30 08/16/16 08:20 ([place] 5-325 Mg) 2 tab Q4H PRN PO 08/11/16 13:30 08/17/16 08:22 (Microzide) 12.5 mg DAILY PO 08/13/16 09:00 08/17/16 08:21 (Lopressor) 12.5 mg Q12HR PO 08/15/16 12:15 08/17/16 08:24 (Pill Splitter) 1 ea UNSCH PRN OTHER 08/15/16 12:45 Atorvastatin Calcium 20 mg 20 mg DAILY PO 08/16/16 09:00 08/17/16 08:21 (Heparin-D5W Inj) 250 ml @ 0 mls/hr TITRATE IV 08/15/16 17:00 08/17/16 02:14 (Plavix) 75 mg DAILY PO 08/17/16 09:00 08/17/16 08:21 (Nitrostat Sl) 0.4 mg Q5M PRN SL 08/16/16 10:00 Vital Signs / I&O Vital Signs Date Time Temp Pulse Resp B/P Pulse Ox O2 Delivery O2 Flow Rate FiO2 08/17/16 10:42 95 Room Air 08/17/16 09:32 20 08/17/16 08:15 97.5 104 18 126/71 95 08/17/16 04:00 97.7 91 16 114/59 93 08/17/16 00:00 97.3 69 18 164/78 92 08/16/16 20:45 Room Air 08/16/16 20:30 97.7 91 18 119/79 96 08/16/16 20:00 97.9 92 16 111/70 97 08/16/16 20:00 92 08/16/16 19:00 97 Room Air 08/16/16 18:00 94 08/16/16 16:00 97.7 93 17 105/70 98 08/16/16 16:00 93 08/16/16 15:00 98 17 100/70 99 08/16/16 14:00 99 08/16/16 14:00 99 18 96/66 100 08/16/16 13:00 101 21 105/69 100 08/16/16 12:00 77 08/16/16 12:00 97.9 92 23 102/67 100 I/O 08/16/16 08/16/16 08/16/16 08/17/16 08/17/16 08/17/16 07:00 15:00 23:00 07:00 15:00 23:00 Intake Total 170 ml 240 ml 120 ml 240 ml Output Total 200 ml 350 ml 250 ml Balance -30 ml -110 ml -130 ml 240 ml Intake Oral 120 ml 240 ml 120 ml 240 ml IV Total 50 ml 0 ml Output Urine Total 200 ml 350 ml 250 ml # Voids 1 3 3 3 # Bowel Movements 0 0 0 Physical Exam GENERAL: Well-nourished, well-developed patient. SKIN: Warm and dry. HEAD: Normocephalic. EYES: No scleral icterus. No injection or drainage. NECK: Supple, trachea midline. No JVD or lymphadenopathy. CARDIOVASCULAR: Regular rate and rhythm without murmurs, gallops, or rubs. RESPIRATORY: Breath sounds equal bilaterally. No accessory muscle use. GASTROINTESTINAL: Abdomen soft, non-tender, nondistended. EXTREMITIES: No cyanosis, or edema. NEUROLOGICAL: Awake, alert, and oriented x 3. Non-focal. Laboratory Laboratory Tests Test 08/16/16 08/16/16 08/17/16 17:00 23:55 08:10 Activated Partial 39.2 SEC 76.9 SEC 32.7 SEC Thromboplast Time Assessment and Plan Problem List: (1) NSTEMI (non-ST elevated myocardial infarction) Assessment and Plan: 1. Cont ASA, Plavix, BB and statin 2. Echo EF 60% 3. D/C Heparin Will be available on a PRN basis for any questions or concerns Sign off (2) CAD (coronary artery disease) (3) Chest pain (4) CHF (congestive heart failure) (5) HTN (hypertension) (6) Metastatic adenocarcinoma Kev Goncalves MD Aug 17, 2016 11:16
[2016-08-18] VITALS: BP 107/73; PULSE 97; RESP 18; TEMP 97.5; O2SAT 95
[2016-08-18] MEDS: ACETAMINOPHEN/HYDROcodone 325 MG/5 MG TAB PO PRN ×5 (00:54→23:17)
[2016-08-18 04:00] VITALS: BP 126/65; PULSE 102; RESP 18; TEMP 97; O2SAT 93
[2016-08-18 06:43] LABS: HEMATOCRIT 30.4 % (35.0-46.0); MEAN CELL VOLUME 102.5 FL (80.0-100.0); MEAN CORPUSCULAR HEMOGLOBIN 34.2 PG (27.0-34.0); MEAN CORPUSCULAR HGB CONC 33.4 % (32.0-36.0); PLATELET COUNT 245 TH/MM3 (150-450); RED BLOOD COUNT 2.97 MIL/MM3 (4.00-5.30); RED CELL DISTRIBUTION WIDTH 16.1 % (11.6-17.2); REVIEW FLAG FINAL; WHITE BLOOD COUNT 8.8 TH/MM3 (4.0-11.0)
[2016-08-18 08:00] VITALS: BP 110/60; PULSE 98; RESP 16; TEMP 97.4; O2SAT 92
[2016-08-18] MEDS: SODIUM CHLORIDE 0.9% FLUSH 10 ML FLUSH IV FLUSH SCH ×2 (09:00→21:00)
[2016-08-18] MEDS: METOPROLOL TARTRATE 25 MG TAB PO SCH ×2 (09:46→23:17)
[2016-08-18] MEDS: HYDROCHLOROTHIAZIDE 12.5 MG CAP PO SCH (09:46)
[2016-08-18] MEDS: ATORVASTATIN 20 MG TAB PO SCH (09:47)
[2016-08-18] MEDS: CLOPIDOGREL 75 MG TAB PO SCH (09:47)
[2016-08-18] MEDS: DOCUSATE SODIUM 100 MG CAP PO SCH ×2 (09:47→23:17)
[2016-08-18] MEDS ORDERED: ATOR20TA15 PO (09:59)
[2016-08-18] MEDS ORDERED: METO25TA3 PO (09:59)
[2016-08-18] MEDS ORDERED: PLAV75TA29 PO (09:59)
[2016-08-18] MEDS ORDERED: ASPI81CH CHEW (10:00)
[2016-08-18] MEDS ORDERED: ASPIRIN 81 MG CHEW TAB CHEW SCH (10:00)
--- NOTE | 2016-08-18 13:29 | HHI.PR ---
Subjective Remarks This is a pleasant 61 y/o Female seen by Neurosurgery due to Compression fractures L3, L5, continue conservative management, the patient has widespread bony metastatic disease through the rib cage the spine and pelvis, as apparent Primary Lung cancer with diffuse metastatic disease, recommended by Oncology for Port placement, Neck Biopsy. 08/12: Stable in her bedroom status post Left Neck area biopsy and Port placement awaiting final by economic specialist for discharge, discussed with Oncology's MORTAR WORKER Miss Alea Steven the patient will need to wait for Pathology report before discharge. 08/13: Pathology report in EMR today. 08/14: Seen in her bedroom, stable as per Oncology notes she will have Radiation therapy today to the Lumbar spine and then may be discharged placed order for follow up by economic specialist doctor Jae Kuhn, no nausea, vomit or diarrhea. 08/15: Seen in her bedroom early in the morning, discussed with Patient and Music Autographer she was recommended to be discharge after Radiation therapy, Then I have been called by nurse Almaz due to that the patient developed Chest pain and Diaphoresis, new ECG performed demonstrated Acute Myocardial infarction showing more than 1 mm Q waves on I, II and AVF for Acute Inferior Myocardial Infarction, given Aspirin, and discussed with Doctor Kev Mancera enrollment specialist he agree with transfer of the patient to Cardiac Unit doubt about the possibility for Cardiac Cath for the patient and the patient already was receiving Lovenox for DVT prophylaxis but do not want to give the patient Heparin due to the high risk for Brain Hemorrhage secondary to Brain tumors and Poor rat exterminator prognosis for the patient but he will re evaluate the case himself. 08/16: Seen in her bedroom in the presence of her Sister, and discussed with nurse Angela asked to start on Physical Therapy and Occupational therapy, transfer to Medical floor on telemetry, seen by enrollment specialist due to NSTEMI, recommended to continue Aspirin, Plavix, BB and Statin, also pending Echocardiogram and discontinue heparin on the next 48 hours, he was cleared for Heparin use by Neurology and customer training specialist. 08/17: Stable in her bedroom, no nausea, vomit or diarrhea, as per Cardiology okay to discontinued Heparin, was discontinued but asked to continue Aspirin and Plavix but not yet cleared for discharge. 08/18: Patient stable in her bedroom, as per Cardiology okay to discharge Home and continue Aspirin and Plavix no new recommendations. he signed off the case will nee to follow as outpatient as recommended before. Objective Vital Signs Date Time Temp Pulse Resp B/P Pulse Ox O2 Delivery O2 Flow Rate FiO2 08/18/16 08:00 97.4 98 16 110/60 92 08/18/16 04:00 97.0 102 18 126/65 93 08/18/16 00:00 97.5 97 18 107/73 95 08/17/16 20:22 124 08/17/16 20:00 97.9 113 18 110/82 94 08/17/16 19:45 Room Air 08/17/16 17:58 95 08/17/16 17:58 20 08/17/16 17:24 95 21 08/17/16 16:45 97.6 114 16 99/74 95 I/O 08/17/16 08/17/16 08/17/16 08/18/16 08/18/16 08/18/16 07:00 15:00 23:00 07:00 15:00 23:00 Intake Total 240 ml 770 ml 240 ml Output Total 800 ml Balance 240 ml -30 ml 240 ml Intake Oral 240 ml 720 ml 240 ml IV Total 50 ml Output Urine Total 800 ml # Voids 3 5 3 # Bowel Movements 0 0 0 Result Diagram: 08/18/16 0620 Imaging Last Impressions Head CT 08/15/16 1243 Signed Impressions: Service Date/Time: Monday, August 15, 2016 13:12 - CONCLUSION: Normal examination for a patient of this age. Colt Bird MD CT Angiography 08/15/16 0000 Signed Impressions: Service Date/Time: Monday, August 15, 2016 17:58 - CONCLUSION: 1. Breathing motion artifact degrades the study somewhat. 2. No pulmonary emboli. 3. Metastatic disease involving the mediastinum, lung parenchyma, and bony structures. This is stable from the prior exam and detailed in that study. 4. Small bilateral pleural effusions. The left is slightly larger from the prior exam. Gary Haley Jr., MD Chest X-Ray 08/11/16 0000 Signed Impressions: Service Date/Time: Thursday, August 11, 2016 13:33 - CONCLUSION: [id number] in good position without pneumothorax. Danny Ulloa MD FACR Neck CT 08/08/16 0000 Signed Impressions: Service Date/Time: Monday, August 08, 2016 18:47 - CONCLUSION: 1. Destructive bone lesions indicating metastatic disease in the left side of the hyoid bone and right first rib. 2. Low density superficial soft tissue posterior cervical masses likely representing necrotic lymph nodes. Left submandibular necrotic lymph node also noted. 3. No primary malignancy identified in the head and neck. Len Quintero MD Chest CT 08/08/16 0000 Signed Impressions: Service Date/Time: Monday, August 08, 2016 13:10 - CONCLUSION: 1. Left perihilar upper lobe mass measuring 3.3 x 3.4 cm consistent with possible bronchogenic carcinoma. Bronchoscopy may be helpful for evaluation and possible tissue diagnosis. 2. Mediastinal and bilateral hilar lymphadenopathy likely consistent with metastatic lymphadenopathy. 3. Multiple expansile lytic lesions involving the right first, sixth, seventh and eighth ribs as well as the left sixth, seventh and eighth ribs consistent with metastatic disease to the bones. 4. Multiple noncalcified nodules within both lungs consistent with probable metastatic disease with the largest nodule measuring 9 mm on the right and 10 mm on the left. 5. Bilateral adrenal masses also consistent with probable metastatic disease. 6. Small bilateral pleural effusions with adjacent compressive atelectasis. Doroteo Henning MD Brain MRI 08/08/16 0000 Signed Impressions: Service Date/Time: Monday, August 08, 2016 12:23 - CONCLUSION: 1. Abnormal enhancement of the clivus and cribriform plate concerning for metastatic disease the bone. 2. Focal are of abnormal enhancement in the sublingual bone again concerning for metastatic disease. 3. No definite mass identified within the brain parenchyma. Ney Ulloa MD Abdomen/Pelvis CT 08/08/16 0000 Signed Impressions: Service Date/Time: Monday, August 08, 2016 13:10 - CONCLUSION: 1. Enlargement of the uterus with an abnormal appearance measuring 6.1 x 5.2 cm. This would be concerning for an endometrial mass. 2. Severe compression fracture of L3 and scattered bony lesions identified within the lumbar spine and sacrum as above. This is concerning for widespread metastatic disease to bone. 3. Focal enhancing lesion in the erector spinae muscle on the right measuring 2.2 x 1.9 cm. 4. Bilateral adrenal masses concerning for metastatic disease to the adrenal glands. Ney Ulloa MD Lumbar Spine MRI 08/07/16 0000 Signed Impressions: Service Date/Time: July 20:41 - CONCLUSION: 1. 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 There are pathologic compression fractures, severe at L3, mild of L5 and slight of T12 and L2. 2. L3 compression fracture-associated moderate spinal stenosis. 3. Tumor-associated bilateral foraminal stenosis at L3/L4 and left foraminal stenosis at L4/L5. 4. CT the chest, abdomen and pelvis with intravenous and oral contrast recommended for further evaluation and attempted identification of primary tumor. Haroon Tillman MD Lumbar Spine X-Ray 08/06/16 1725 Signed Impressions: Service Date/Time: Saturday, August 06, 2016 18:01 - CONCLUSION: Nonacute appearing compression deformities, moderate to severe of L3 and slight of L5. Haroon Tillman MD Hip X-Ray 08/06/16 1638 Signed Impressions: Service Date/Time: Saturday, August 06, 2016 16:55 - CONCLUSION: 1. No acute fracture or dislocation. 2. Mild degenerative changes involving the right hip joint. Doroteo Henning MD Procedures With Diagnosis of Left Subclavian infusion Port Placement, intraoperative fluoroscopy and Left Submandibular Lymph node biopsy by Doctor Jacob Armstrong Aug 11, 2016 13:28 Other Results Laboratory Tests Test 08/15/16 08/16/16 08/17/16 08/18/16 12:25 01:00 08:10 06:20 Prothrombin Time 11.9 SEC Prothromb Time International 1.1 RATIO Ratio Nasal Screen MRSA (PCR) MRSA NOT DETECTED Total Creatine Kinase 31 U/L Troponin I 1.68 NG/ML Activated Partial 32.7 SEC Thromboplast Time White Blood Count 8.8 TH/MM3 Red Blood Count 2.97 MIL/MM3 Hemoglobin 10.2 GM/DL Hematocrit 30.4 % Mean Corpuscular Volume 102.5 FL Mean Corpuscular Hemoglobin 34.2 PG Mean Corpuscular Hemoglobin 33.4 % Concent Red Cell Distribution Width 16.1 % Platelet Count 245 TH/MM3 Mean Platelet Volume 8.7 FL Objective Remarks GENERAL: NAD, A&Ox3. HEAD: Normocephalic. NECK: Supple, trachea midline. No lymphadenopathy. EYES: No scleral icterus. No injection or drainage. CARDIOVASCULAR: Regular rate and rhythm without murmurs, gallops, or rubs. RESPIRATORY: Breath sounds equal bilaterally. No accessory muscle use. GASTROINTESTINAL: Abdomen soft, non-tender, nondistended. MUSCULOSKELETAL: No cyanosis, or edema. SKIN: Warm and dry. NEURO: No focal neurological deficits. Medications and IVs Current Medications Medications (Trade) Dose Ordered Sig/Sergio Route Start Time Stop Time Status Last Admin (Tylenol) 650 mg Q4H PRN PO 08/06/16 18:45 08/07/16 00:21 (Zofran Inj) 4 mg Q6H PRN IV PUSH 08/06/16 18:45 (Colace) 100 mg BID PO 08/07/16 21:00 08/18/16 09:47 (Milk Of Magnesia Liq) 30 ml DAILY PRN PO 08/07/16 16:45 08/13/16 08:13 (KCl) 10 meq BID PO 08/10/16 21:00 08/17/16 20:23 (NS Flush) 2 ml UNSCH PRN IV FLUSH 08/11/16 13:30 08/16/16 08:20 (NS Flush) 2 ml BID IV FLUSH 08/11/16 21:00 08/17/16 20:24 ([place] 5-325 Mg) 1 tab Q4H PRN PO 08/11/16 13:30 08/16/16 08:20 ([place] 5-325 Mg) 2 tab Q4H PRN PO 08/11/16 13:30 08/18/16 09:48 (Microzide) 12.5 mg DAILY PO 08/13/16 09:00 08/18/16 09:46 (Lopressor) 12.5 mg Q12HR PO 08/15/16 12:15 08/18/16 09:46 (Pill Splitter) 1 ea UNSCH PRN OTHER 08/15/16 12:45 (Lipitor) 20 mg DAILY PO 08/16/16 09:00 08/18/16 09:47 (Plavix) 75 mg DAILY PO 08/17/16 09:00 08/18/16 09:47 (Nitrostat Sl) 0.4 mg Q5M PRN SL 08/16/16 10:00 (Aspirin Chew) 81 mg DAILY CHEW 08/18/16 10:00 (Heparin Central Flush) 500 units Q21D IV FLUSH 08/18/16 12:45 08/18/16 12:49 A/P Assessment and Plan Assessment and Plan 61-year-old female admitted with hypokalemia and lumbar spine fractures. Metastatic disease at lumbar spine, sacrum, pelvic bones, scalp, adrenals, lung, submandibular soft tissue, cervical soft tissue, ribs, hyoid bone, and endometrium. Biopsy of the posterior neck (soft tissue) performed. Acute Myocardial Infarction, NSTEMI Patient with Q waves more than 1 mm in I, II and AVF for Acute inferior Myocardial infarction the patient developed Chest pain and Diaphoresis, given Aspirin, recommended to continue Plavix and Aspirin and discontinue Heparin, Cardiology signed off the case, recommended to continue good diet and exercise when able to Hypokalemia Resolved will continue potassium replacement and follow with PCP. Lumbar spine fractures May be pathologic based on MRI imaging Continue when necessary pain treatments Conservative management as per Neurosurgery. 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 May have been contributory to hypokalemia Likely responsible for lumbar fractures, today recommended by Oncology for radiation Oncology and then discharge home. With Diagnosis of Left Subclavian infusion Port Placement, intraoperative fluoroscopy and Left Submandibular Lymph node biopsy by Doctor Jacob Armstrong Aug 11, 2016 13:28 as per Oncology to discharge Home after Radiation oncology evaluation and treatment to the lumbar spine. at this time okay from economic specialist to discharge Home. Hypertension controlled. Poor group home Prognosis Discussed with Patient nurse Miss Hernandez ,all questions answered to the best of my abilities. DVT prophylaxis Lovenox Discharge Planning Discharge home today. Tej Richmond MD Aug 18, 2016 13:29
--- NOTE | 2016-08-18 13:46 | HHI.DS ---
Discharge Summary Admission Date Aug 06, 2016 at 19:52 Discharge Date: Aug 18, 2016 Admitting Diagnosis Hypokalemia (1) Hypokalemia ICD Code: E87.6 Diagnosis: Principal (2) Metastatic adenocarcinoma ICD Code: C79.9 Diagnosis: Principal (3) Lumbar compression fracture ICD Code: S32.000A Diagnosis: Principal Procedures With Diagnosis of Left Subclavian infusion Port Placement, intraoperative fluoroscopy and Left Submandibular Lymph node biopsy by Doctor Jacob Armstrong Aug 11, 2016 13:28 Brief History - From Admission right hip pain for one month came to hospital then but htought she strained her lower back tehn was using walker since then almost fell few times with walker was sitting on edge of bed and started to get up, and fell backwards onto the bed many times she was walking and fell with walker was told to take muscle relaxors adn initinally helped could not get to bathroom - urine incontinence have not had bowel movements in weeks has been eating very little no fever no nausea/ no vomiting/ no diarrhea no blood no abdominal pain/ no chest pain/ no sob was taking antihistamine and this caused her chest to hurt and thus stopped CBC/BMP: 08/18/16 0620 Significant Findings Laboratory Tests Test 08/15/16 08/16/16 08/16/16 08/16/16 17:25 00:00 01:00 08:09 Troponin I 1.82 NG/ML 1.68 NG/ML (0.02-0.05) (0.02-0.05) Activated Partial 34.7 SEC 37.8 SEC Thromboplast Time (24.3-30.1) (24.3-30.1) Test 08/16/16 08/16/16 08/17/16 08/18/16 17:00 23:55 08:10 06:20 Activated Partial 39.2 SEC 76.9 SEC 32.7 SEC Thromboplast Time (24.3-30.1) (24.3-30.1) (24.3-30.1) Red Blood Count 2.97 MIL/MM3 (4.00-5.30) Hemoglobin 10.2 GM/DL (11.6-15.3) Hematocrit 30.4 % (35.0-46.0) Mean Corpuscular Volume 102.5 FL (80.0-100.0) Mean Corpuscular Hemoglobin 34.2 PG (27.0-34.0) Imaging Last Impressions Head CT 08/15/16 1243 Signed Impressions: Service Date/Time: Monday, August 15, 2016 13:12 - CONCLUSION: Normal examination for a patient of this age. Colt Bird MD CT Angiography 08/15/16 0000 Signed Impressions: Service Date/Time: Monday, August 15, 2016 17:58 - CONCLUSION: 1. Breathing motion artifact degrades the study somewhat. 2. No pulmonary emboli. 3. Metastatic disease involving the mediastinum, lung parenchyma, and bony structures. This is stable from the prior exam and detailed in that study. 4. Small bilateral pleural effusions. The left is slightly larger from the prior exam. Gary Haley Jr., MD Chest X-Ray 08/11/16 0000 Signed Impressions: Service Date/Time: Thursday, August 11, 2016 13:33 - CONCLUSION: [id number] in good position without pneumothorax. Danny Ulloa MD FACR Neck CT 08/08/16 0000 Signed Impressions: Service Date/Time: Monday, August 08, 2016 18:47 - CONCLUSION: 1. Destructive bone lesions indicating metastatic disease in the left side of the hyoid bone and right first rib. 2. Low density superficial soft tissue posterior cervical masses likely representing necrotic lymph nodes. Left submandibular necrotic lymph node also noted. 3. No primary malignancy identified in the head and neck. Len Quintero MD Chest CT 08/08/16 0000 Signed Impressions: Service Date/Time: Monday, August 08, 2016 13:10 - CONCLUSION: 1. Left perihilar upper lobe mass measuring 3.3 x 3.4 cm consistent with possible bronchogenic carcinoma. Bronchoscopy may be helpful for evaluation and possible tissue diagnosis. 2. Mediastinal and bilateral hilar lymphadenopathy likely consistent with metastatic lymphadenopathy. 3. Multiple expansile lytic lesions involving the right first, sixth, seventh and eighth ribs as well as the left sixth, seventh and eighth ribs consistent with metastatic disease to the bones. 4. Multiple noncalcified nodules within both lungs consistent with probable metastatic disease with the largest nodule measuring 9 mm on the right and 10 mm on the left. 5. Bilateral adrenal masses also consistent with probable metastatic disease. 6. Small bilateral pleural effusions with adjacent compressive atelectasis. Doroteo Henning MD Brain MRI 08/08/16 0000 Signed Impressions: Service Date/Time: Monday, August 08, 2016 12:23 - CONCLUSION: 1. Abnormal enhancement of the clivus and cribriform plate concerning for metastatic disease the bone. 2. Focal are of abnormal enhancement in the sublingual bone again concerning for metastatic disease. 3. No definite mass identified within the brain parenchyma. Ney Ulloa MD Abdomen/Pelvis CT 08/08/16 0000 Signed Impressions: Service Date/Time: Monday, August 08, 2016 13:10 - CONCLUSION: 1. Enlargement of the uterus with an abnormal appearance measuring 6.1 x 5.2 cm. This would be concerning for an endometrial mass. 2. Severe compression fracture of L3 and scattered bony lesions identified within the lumbar spine and sacrum as above. This is concerning for widespread metastatic disease to bone. 3. Focal enhancing lesion in the erector spinae muscle on the right measuring 2.2 x 1.9 cm. 4. Bilateral adrenal masses concerning for metastatic disease to the adrenal glands. Ney Ulloa MD Lumbar Spine MRI 08/07/16 0000 Signed Impressions: Service Date/Time: July 20:41 - CONCLUSION: 1. 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 There are pathologic compression fractures, severe at L3, mild of L5 and slight of T12 and L2. 2. L3 compression fracture-associated moderate spinal stenosis. 3. Tumor-associated bilateral foraminal stenosis at L3/L4 and left foraminal stenosis at L4/L5. 4. CT the chest, abdomen and pelvis with intravenous and oral contrast recommended for further evaluation and attempted identification of primary tumor. Haroon Tillman MD Lumbar Spine X-Ray 08/06/16 1725 Signed Impressions: Service Date/Time: Saturday, August 06, 2016 18:01 - CONCLUSION: Nonacute appearing compression deformities, moderate to severe of L3 and slight of L5. Haroon Tillman MD Hip X-Ray 08/06/16 1638 Signed Impressions: Service Date/Time: Saturday, August 06, 2016 16:55 - CONCLUSION: 1. No acute fracture or dislocation. 2. Mild degenerative changes involving the right hip joint. Doroteo Henning MD PE at Discharge GENERAL: NAD, A&Ox3. HEAD: Normocephalic. NECK: Supple, trachea midline. No lymphadenopathy. EYES: No scleral icterus. No injection or drainage. CARDIOVASCULAR: Regular rate and rhythm without murmurs, gallops, or rubs. RESPIRATORY: Breath sounds equal bilaterally. No accessory muscle use. GASTROINTESTINAL: Abdomen soft, non-tender, nondistended. MUSCULOSKELETAL: No cyanosis, or edema. SKIN: Warm and dry. NEURO: No focal neurological deficits. Hospital Course This is a pleasant 61 y/o Female seen by Neurosurgery due to Compression fractures L3, L5, continue conservative management, the patient has widespread bony metastatic disease through the rib cage the spine and pelvis, as apparent Primary Lung cancer with diffuse metastatic disease, recommended by Oncology for Port placement, Neck Biopsy. 08/12: Stable in her bedroom status post Left Neck area biopsy and Port placement awaiting final by budget specialist for discharge, discussed with Oncology's BUSINESS INTELLIGENCE CONSULTANT Alea Steven the patient will need to wait for Pathology report before discharge. 08/13: Pathology report in EMR today. 08/14: Seen in her bedroom, stable as per Oncology notes she will have Radiation therapy today to the Lumbar spine and then may be discharged placed order for follow up by budget specialist doctor Jae Kuhn, no nausea, vomit or diarrhea. 08/15: Seen in her bedroom early in the morning, discussed with Patient and Video Coordinator she was recommended to be discharge after Radiation therapy, Then I have been called by nurse miss Muse due to that the patient developed Chest pain and Diaphoresis, new ECG performed demonstrated Acute Myocardial infarction showing more than 1 mm Q waves on I, II and AVF for Acute Inferior Myocardial Infarction, given Aspirin, and discussed with Doctor Kev Mancera retail support specialist he agree with transfer of the patient to Cardiac Unit doubt about the possibility for Cardiac Cath for the patient and the patient already was receiving Lovenox for DVT prophylaxis but do not want to give the patient Heparin due to the high risk for Brain Hemorrhage secondary to Brain tumors and Poor half-way prognosis for the patient but he will re evaluate the case himself. 08/16: Seen in her bedroom in the presence of her Sister, and discussed with nurse Miss Miller asked to start on Physical Therapy and Occupational therapy, transfer to Medical floor on telemetry, seen by retail support specialist due to NSTEMI, recommended to continue Aspirin, Plavix, BB and Statin, also pending Echocardiogram and discontinue heparin on the next 48 hours, he was cleared for Heparin use by Neurology and solar project coordination specialist. 08/17: Stable in her bedroom, no nausea, vomit or diarrhea, as per Cardiology okay to discontinued Heparin, was discontinued but asked to continue Aspirin and Plavix but not yet cleared for discharge. 08/18: Patient stable in her bedroom, as per Cardiology okay to discharge Home and continue Aspirin and Plavix no new recommendations. he signed off the case will nee to follow as outpatient as recommended before. Assessment and Plan 61-year-old female admitted with hypokalemia and lumbar spine fractures. Metastatic disease at lumbar spine, sacrum, pelvic bones, scalp, adrenals, lung, submandibular soft tissue, cervical soft tissue, ribs, hyoid bone, and endometrium. Biopsy of the posterior neck (soft tissue) performed. Acute Myocardial Infarction, NSTEMI Patient with Q waves more than 1 mm in I, II and AVF for Acute inferior Myocardial infarction the patient developed Chest pain and Diaphoresis, given Aspirin, recommended to continue Plavix and Aspirin and discontinue Heparin, Cardiology signed off the case, recommended to continue good diet and exercise when able to Hypokalemia Resolved will continue potassium replacement and follow with PCP. Lumbar spine fractures May be pathologic based on MRI imaging Continue when necessary pain treatments Conservative management as per Neurosurgery. 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 May have been contributory to hypokalemia Likely responsible for lumbar fractures, today recommended by Oncology for radiation Oncology and then discharge home. With Diagnosis of Left Subclavian infusion Port Placement, intraoperative fluoroscopy and Left Submandibular Lymph node biopsy by Doctor Jacob Armstrong Aug 11, 2016 13:28 as per Oncology to discharge Home after Radiation oncology evaluation and treatment to the lumbar spine. at this time okay from budget specialist to discharge Home. Hypertension controlled. Poor half-way Prognosis Discussed with Patient nurse Miss Hernandez ,all questions answered to the best of my abilities. DVT prophylaxis Lovenox Discharge Planning Discharge home today. Pt Condition on Discharge: Good Discharge Disposition: Discharge Home Discharge Time: > 30 minutes Discharge Instructions DIET: Follow Instructions for: Heart Healthy Diet Activities you can perform: Regular-No Restrictions Tej Richmond MD Aug 18, 2016 13:46
[2016-08-18 20:53] VITALS: BP 156/90; PULSE 119; RESP 16; TEMP 97.3; O2SAT 96
[2016-08-18] MEDS: POTASSIUM CHLORIDE 10 MEQ CAP PO SCH (23:17)
[2016-08-18 23:20] VITALS: BP 128/77; PULSE 109; RESP 16; TEMP 97.6; O2SAT 94
[2016-08-19 05:20] VITALS: BP 121/68; PULSE 95; RESP 16; TEMP 97.4; O2SAT 95
[2016-08-19] MEDS: ATORVASTATIN 20 MG TAB PO SCH (08:13)
[2016-08-19] MEDS: DOCUSATE SODIUM 100 MG CAP PO SCH (08:13)
[2016-08-19] MEDS: CLOPIDOGREL 75 MG TAB PO SCH (08:14)
[2016-08-19] MEDS: HYDROCHLOROTHIAZIDE 12.5 MG CAP PO SCH (08:14)
[2016-08-19] MEDS: POTASSIUM CHLORIDE 10 MEQ CAP PO SCH (08:14)
[2016-08-19] MEDS: METOPROLOL TARTRATE 25 MG TAB PO SCH (08:15)
[2016-08-19] MEDS: SODIUM CHLORIDE 0.9% FLUSH 10 ML FLUSH IV FLUSH SCH (08:15)
[2016-08-19] MEDS: ACETAMINOPHEN/HYDROcodone 325 MG/5 MG TAB PO PRN (08:29)
--- NOTE | 2016-08-19 10:24 | HHI.NSPN ---
History Chief Complaint: No complaints Interval History 08/07: 61-year-old female states that approximately a month ago she developed onset of progressive severe low back pain . She does not recall any definite cause of the symptoms. She states she may have been lifting some boxes and strained her back. She states that she was seen in the emergency room for medical evaluation at that time. Her EMR indicates that she was seen on complaining of approximately 2 weeks of low back pain after doing some stretching. She was released with baclofen and a Lidoderm patch. She states that she had to start using a walker due to persistent pain over the past month , and has been somewhat unsteady with her gait. She fell a week ago, and since then has had significant increase low back pain with radiation to primarily the right lateral hip and thigh. She has been mostly bedridden since she fell, unable to stand up even with a walker. She has had episodes of loss of bowel and bladder control, but attributes these to pain and not being able to get to the bathroom rather than actual incontinence. No complaint of significant numbness in the lower extremities. No pain which is some numbness in the upper extremities 08/09: The patient is awake and alert this morning. She says she is doing good although she does endorse pain to the back and a slight headache. 08/10: The patient is doing well when seen this morning. She does endorse some back pain which is better and a slight headache also. 08/11: The patient says she is doing good when seen. She does have pain to the back which she states is better. She also endorses pain and numbness to the right lateral hip/thigh as well as a slight frontal headache this morning. 08/12: When seen this afternoon the patient states that she is doing well. Her back is sore today and she denies any headache. 08/19: This morning the patients states that she is doing good and being discharged today. She had no complaints. When asked if she has a LSO brace she said yes but that she uses the walker more for support when ambulating and that she is having no difficulty in doing so. System Review Comments Constitutional: Patient denies any fever or chills. Respiratory: Patient denies any shortness of breath or productive cough. Cardiovascular: Patient denies any chest pain, palpitations or irregular heartbeat. Gastrointestinal: Patient denies any abdominal pain, nausea, vomiting or incontinence of stool. Genitourinary: Patient denies any incontinence of urine. Musculoskeletal: Patient denies any pain to the neck, back or extremities. Neurologic: Patient denies any headache, dizziness, numbness or tingling. Exam Results Vital Signs Date Time Temp Pulse Resp B/P Pulse Ox O2 Delivery O2 Flow Rate FiO2 08/19/16 05:20 97.4 95 16 121/68 95 08/17/16 19:45 Room Air 08/17/16 17:24 21 08/16/16 08:21 1.00 Intake and Output 08/18/16 08/18/16 08/19/16 08:00 16:00 00:00 Intake Total 240 ml 720 ml 0 ml Output Total 0 ml Balance 240 ml 720 ml 0 ml Physical Examination GENERAL: Awake & alert, normal affect, no apparent distress. INTEGUMENTARY: Skin warm & dry. Multiple healed wounds to legs, no rashes, ecchymoses or other lesions. HEENT: Normocephalic, atraumatic. NECK: Midline cervical spine NTTP, full AROM, no JVD, trachea midline. RESPIRATORY: CTAB w/o W/R/R, equal excursion, nonlaboured, on RA. CARDIOVASCULAR: S1S2 w/RRR w/o M/G/R, radial & pedal pulses 2+ bilaterally, cap refill < 2 sec, no pedal edema. GASTROINTESTINAL: Abdomen soft, nontender, positive bowel sounds. MUSCULOSKELETAL: BARTH w/o difficulty. Thoracolumbar spine NTTP but right lumbar paraspinals sore to palpation. Extremities NTTP. Deformity noted to proximal right tibia NTTP. NEUROLOGICAL: AAOx3 Speech clear & appropriate Sensation intact to light touch to all extremities Motor strength 4+ to 5/5 to all extremities. Lab, Micro, Other Results I personally reviewed the CT brain images of which were unremarkable for any acute findings. Medical Decision Making Impression and Plan Impression: 1. Approximately 50% L3 and minimal L5 compression fractures. 2. Question of mild right L3-4 motor deficit MRI lumbar spine demonstrates widespread bony metastatic disease with pathological compressions fractures of L3 (severe), L5 (mild) and T12 & L2 (both slight); moderate spinal stenosis at L3; bilateral L3-4 and left L4-5 foraminal stenosis r/t tumor MRI brain demonstrates abnormal enhancement of the clivus & cribiform plate and the sublingual bone concerning for metatstatic disease, no definite brain mass noted CT chest, abdomen & pelvis demonstrate possible bronchogenic carcinoma and probable metatstaic disease CT neck demonstrates destructive bone lesions indicating metatstatic disease of the left side of the hyoid bone and the right first rib and probable necrotic lymph nodes CT brain unremarkable Multiple pathologic compression fractures r/t metatstatic disease Neuro exam stable Pain controlled and patient able to ambulate Plan: Discussed plan of care with patient who verbalised her understanding. Primary mgmt per Hospitalist Continue conservative treatment for the lumbar fractures. PT eval & tx Mobilise patient w/assistance OOB w/LSO brace Patient able to be discharged from NSGY's perspective Discussed follow up as needed w/patient who verbalised her understanding, no questions asked. Judson Gauthier Aug 19, 2016 10:24
== END 2016-08-19 12:45 | disposition home or self-care (01) | DRG 987 ==
LOC: NEPD 14:23 → NEDA 18:43 → OBSVTOIN 19:52 → N06B 21:53 → HIMN 08-15 12:00 → N04A 08-16 20:36
PROVIDERS: ADMIT Internal Medicine; ATTEND Internal Medicine
PROC: 05H633Z Insertion of Infusion Device into Left Subclavian Vein, Percutaneous Approach (ICD-10-PCS; 2016-08-11)
PROC: 07B20ZX Excision of Left Neck Lymphatic, Open Approach, Diagnostic (ICD-10-PCS; principal; 2016-08-11 12:01)
PROC: 0JH60XZ Insertion of Tunneled Vascular Access Device into Chest Subcutaneous Tissue and Fascia, Open Approach (ICD-10-PCS; 2016-08-11 12:01)
DX: C34.90 Malignant neoplasm of unspecified part of unspecified bronchus or lung (principal); I21.4 Non-ST elevation (NSTEMI) myocardial infarction; J90 Pleural effusion, not elsewhere classified; C78.01 Secondary malignant neoplasm of right lung; I11.0 Hypertensive heart disease with heart failure; C77.0 Secondary and unspecified malignant neoplasm of lymph nodes of head, face and neck; I50.9 Heart failure, unspecified; C78.02 Secondary malignant neoplasm of left lung; M48.54XA Collapsed vertebra, not elsewhere classified, thoracic region, initial encounter for fracture; C79.51 Secondary malignant neoplasm of bone; C79.71 Secondary malignant neoplasm of right adrenal gland; M48.56XA Collapsed vertebra, not elsewhere classified, lumbar region, initial encounter for fracture; C79.72 Secondary malignant neoplasm of left adrenal gland; C79.82 Secondary malignant neoplasm of genital organs; E83.52 Hypercalcemia; R15.9 Full incontinence of feces; Z59.0 Homelessness; I25.10 Atherosclerotic heart disease of native coronary artery without angina pectoris; I25.2 Old myocardial infarction; E87.6 Hypokalemia; R32 Unspecified urinary incontinence; Z74.01 Bed confinement status; W19.XXXA Unspecified fall, initial encounter; Z87.891 Personal history of nicotine dependence; N85.2 Hypertrophy of uterus; Z80.3 Family history of malignant neoplasm of breast; Z80.0 Family history of malignant neoplasm of digestive organs; R29.810 Facial weakness; M54.17 Radiculopathy, lumbosacral region
CPT/HCPCS: 70450; 70491; 70553; 71010; 71260; 71275; 72110; 72158; 73502; 74177; 76000; 77263; 77280; 77290; 77295; 77300; 77334; 77387; 77412; 80048; 80053; 81001; 82378; 82550; 83735; 84100; 84484; 85025; 85027; 85610; 85730; 87641; 88305; 88307; 88341; 88342; 93005; 93306; 99223; A9579; C1788; G8987-GP; G8988-GP; J0690; J1642; J1644; J1650; J2250; J2270; J2370; J2405; J2430; J3010; J3480; J7030; L0484; Q9963; Q9967

== ENCOUNTER 2016-08-19 18:47 | Emergency (ER) | payer OTHER ==
[~2016-08-19] VITALS: Ht 157.5 cm; Wt 56.0 kg
[~2016-08-19 18:47] MED LIST changes: +ASPI81CH CHEW; +ATOR20TA15 PO; -BACL10TA PO; +GETGO ROLLING W1 MI1; +HYDR-3516 PO; -IBUP400T20 PO; -LIDO5DIS35 TOPICAL; +METO25TA3 PO; +PLAV75TA29 PO; +POTA10CA PO
[2016-08-19 18:57] VITALS: BP 146/77; PULSE 132; RESP 18; TEMP 98; O2SAT 100
--- NOTE | 2016-08-19 19:29 | PD ---
HPI Chief Complaint: Pain: Acute or Chronic Time Seen by Provider: 19:12 Travel History International Travel<30 days: No Contact w/Intl Traveler<30days: No Traveled to known affect area: No History of Present Illness HPI The patient is a 61 year old female who presents to the [facility] emergency department with a history of being discharged from the hospital earlier today to a [facility] nursing home. The patient was admitted to the hospital recently related to hip and back pain. 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 The patient had an [id number] placed while she was in the hospital. The patient is followed by the oncologist, Dr. Kuhn. From reviewing the record, the patient reportedly was not interested in further invasive procedures or chemotherapy. The patient reports that she got to the nursing home and had increased pain and generalized weakness with difficulty walking. She reports that no one was there to assist her with her care. She reports that she has no local family to assist her with care other than elderly family members. The patient denies any recent fevers, cough, congestion, neck pain, chest pain, shortness of breath, abdominal pain, vomiting, diarrhea, urinary symptoms, loss of bowel or bladder control, one-sided weakness, slurred speech, facial droop, or difficulty with word finding ability. [facility] Past Medical History Narrative Medical The patient's past medical history is significant for congestive heart failure in 2013, hypertension, hyperlipidemia, tobacco abuse of one pack per day up until her recent admission, history of multiple pathologic compression fractures noted related to bony metastasis thought to be related to a primary of an adenocarcinoma of the lung. Asthma: No Blood Disorders: No Anxiety: No Depression: No Heart Rhythm Problems: No Cancer: No Cardiovascular Problems: Yes (chf) Chemotherapy: No Chest Pain: Yes Congestive Heart Failure: Yes (2007 ) Coronary Artery Disease: Yes Diabetes: No Diminished Hearing: No Endocrine: No Gastrointestinal Disorders: No Genitourinary: No Hypertension: Yes Immune Disorder: No Implanted Vascular Access Dvce: No Musculoskeletal: No Neurologic: No Psychiatric: No Reproductive: No Respiratory: Yes Myocardial Infarction: Yes (2007) Radiation Therapy: No Sleep Apnea: No Thyroid Disease: No ?: Not Menopausal: Yes Past Surgical History Narrative Surgical The patient's past surgical history is significant for C-sections 3, Infuse-a- Port placement. Section: Yes (X3) Other Surgery: Yes (3 C SECTIONS) Social History Alcohol Use: No Tobacco Use: Yes (one pack per day, reportedly quit when she was diagnosed with cancer) Substance Use: No Allergies-Medications (Allergen,Severity, Reaction): Coded Allergies: No Known Allergies (Verified , 07/10/16) Reported Meds & Prescriptions Reported Meds & Active Scripts Active Aspirin 81 Mg Chew 81 Mg CHEW DAILY Metoprolol Tartrate 25 Mg Tab 12.5 Mg PO Q12HR Plavix (Clopidogrel Bisulfate) 75 Mg Tab 75 Mg PO DAILY Atorvastatin (Atorvastatin Calcium) 20 Mg Tab 20 Mg PO DAILY Potassium Chloride ER (Potassium Chloride) 10 Meq Cap 10 Meq PO BID follow in one week with differential specialist and show result of your new BMP and titrate this medicine as needed. Hydrocodone-Acetaminophen 5-325 mg Tab 1 Tab PO Q4H PRN DO NOT TAKE THIS MEDICINE IF YOU WILL DRIVE A CAR OR USE A MACHINE, ONLY USE IT WHEN RESTING AT HOME. Review of Systems Except as stated in HPI: all other systems reviewed are Neg General / Constitutional: No: Fever Eyes: No: Visual changes HENT: No: Headaches Cardiovascular: No: Chest Pain or Discomfort Respiratory: No: Shortness of Breath Gastrointestinal: No: Abdominal Pain Genitourinary: No: Dysuria Musculoskeletal: Positive: Myalgias, Arthralgias, Limited ROM (right hip), No : Pain Skin: No Rash Neurologic: Positive: Weakness (generalized weakness), No: Focal Abnormalities , Change in Mentation, Slurred Speech, Sensory Disturbance Psychiatric: No: Depression Endocrine: No: Polydipsia Hematologic/Lymphatic: No: Easy Bruising Physical Exam Narrative General: The patient is a well-developed, thin appearing female in no acute distress. Head and Neck exam: Head is normocephalic atraumatic. Eyes: EOMI, pupils are equal round and reactive to light. Nose: Midline septum with pink mucous membranes Mouth: Dentition unremarkable. Moist mucus membranes. Posterior oropharynx is not erythematous. No tonsillar hypertrophy. Uvula midline. Airway patent. Neck: No palpable lymphadenopathy. No nuchal rigidity. No thyromegaly. Cardiovascular: Sinus tachycardia in the 1 teens to low 120s without murmurs, gallops, or rubs. No pulse deficit to the extremities and simultaneous auscultation and palpation of her radial artery. Lungs: Clear to auscultation bilaterally. No wheezes, rhonchi, or rales. Abdomen: Soft, without tenderness to palpation in all 4 quadrants of the abdomen. No guarding, rebound, or rigidity. Normal bowel sounds are audible. No tenderness on palpation of McBurney's point. Negative [place] sign. Extremities: No clubbing, cyanosis, or edema. 2+ pulses in all 4 extremities. No calf tenderness on palpation. The patient reports having hip pain with flexion of the right hip. According to the record she does have an area of bony metastasis to that site Back: No costovertebral angle tenderness to palpation. Neurologic Exam: Cranial nerves 2-12 were intact on exam. Strength is 5/5 in all 4 extremities. No sensory deficits noted. No dysdiadochokinesis. Good finger to nose and Heel to park bilaterally. Skin Exam: No rash noted. Intact skin that is warm and dry. Data Data Last Documented VS Vital Signs Date Time Temp Pulse Resp B/P Pulse Ox O2 Delivery O2 Flow Rate FiO2 08/19/16 21:39 105 16 122/56 97 Room Air 08/19/16 18:57 98.0 Orders Sodium Chlor 0.9% 250 Ml Inj (Ns 250 Ml (08/19/16 19:30) Electrocardiogram (08/19/16 19:31) Complete Blood Count With Diff (08/19/16 19:31) Comprehensive Metabolic Panel (08/19/16 19:31) Urinalysis - C+S If Indicated (08/19/16 19:31) Magnesium (Mg) (08/19/16 19:31) Iv Access Insert/Monitor (08/19/16 19:31) Ecg Monitoring (08/19/16 19:31) Oximetry (08/19/16 19:31) Hospice Consult (08/19/16 19:32) Morphine Inj (Morphine Inj) (08/19/16 21:30) Ondansetron Inj (Zofran Inj) (08/19/16 21:30) Labs Laboratory Tests Test 08/19/16 19:45 White Blood Count 11.1 TH/MM3 Red Blood Count 3.46 MIL/MM3 Hemoglobin 12.1 GM/DL Hematocrit 35.2 % Mean Corpuscular Volume 101.7 FL Mean Corpuscular Hemoglobin 34.9 PG Mean Corpuscular Hemoglobin 34.3 % Concent Red Cell Distribution Width 16.8 % Platelet Count 252 TH/MM3 Mean Platelet Volume 8.7 FL Neutrophils (%) (Auto) 84.7 % Lymphocytes (%) (Auto) 11.0 % Monocytes (%) (Auto) 2.9 % Eosinophils (%) (Auto) 1.1 % Basophils (%) (Auto) 0.3 % Neutrophils # (Auto) 9.4 TH/MM3 Lymphocytes # (Auto) 1.2 TH/MM3 Monocytes # (Auto) 0.3 TH/MM3 Eosinophils # (Auto) 0.1 TH/MM3 Basophils # (Auto) 0.0 TH/MM3 CBC Comment DIFF FINAL Differential Comment Sodium Level 134 MEQ/L Potassium Level 3.5 MEQ/L Chloride Level 98 MEQ/L Carbon Dioxide Level 21.7 MEQ/L Anion Gap 14 MEQ/L Blood Urea Nitrogen 27 MG/DL Creatinine 0.86 MG/DL Estimat Glomerular Filtration 67 ML/MIN Rate Random Glucose 111 MG/DL Calcium Level 10.5 MG/DL Magnesium Level 1.8 MG/DL Total Bilirubin 0.7 MG/DL Aspartate Amino Transf 40 U/L (AST/SGOT) Alanine Aminotransferase 23 U/L (ALT/SGPT) Alkaline Phosphatase 327 U/L Total Protein 6.9 GM/DL Albumin 3.1 GM/DL MDM Medical Decision Making Medical Screen Exam Complete: Yes Emergency Medical Condition: Yes Medical Record Reviewed: Yes Differential Diagnosis Electrolyte abnormality, versus dehydration, versus generalized weakness related to recent hospitalization Narrative Course During the course of the patients emergency department visit, the patients history, examination, and differential diagnosis were reviewed with the patient. The patient had IV access obtained and blood work sent for analysis. The patient was placed on a cardiac exercise specialist with oximetry and blood pressure monitoring. An EKG has been ordered. A call was placed out to the hospice case manager for the emergency department regarding this patient's case. After further review of the patient's record and discussion with case management as well as the patient, it was identified that the patient did not want any further invasive procedures or chemotherapy. We did discuss the possibility of a hospice consultation. The patient reports that she is interested in this at this time. The patient had an EKG done on arrival that shows a sinus tachycardia rate of 113, no acute ST segment elevation or depression, QRS duration is 94 ms, QTC 388 ms. The patient was initially provided normal saline at 250 mL bolus 1. The patients laboratory studies were reviewed and remarkable for a CBC that shows a white count of 11.1, hemoglobin 12.1, platelets 252 with 84.7 neutrophils, CMP is remarkable for sodium 134, BUN 27, glucose 111, calcium 10.5 , AST 40, alkaline phosphatase 327. The hospice nurse came out to evaluate the patient emergently. She spoke at length with the patient. The plan was made to transfer the patient to the hospice care center for inpatient admission with discharge planning to be done from that facility. Diagnosis Primary Impression: Metastatic adenocarcinoma Additional Impressions: Lumbar compression fracture Qualified Code: S32.000S - Lumbar compression fracture, sequela Bony metastasis Referrals: [facility]/[place] Patient Instructions: General Instructions Med/Other Pt SpecificInfo: No Change to Meds Disposition: 51 HOSPICE/MED FACILITY Condition: Stable Susy Pacheco MD Aug 19, 2016 19:29
[2016-08-19] MEDS ORDERED: SODIUM CHLOR 0.9% 250 ML INJ 250 ML IV ONE (19:30)
[2016-08-19 19:47] VITALS: O2SAT 95
[2016-08-19 19:55] LABS: AUTOMATED NEUTROPHIL # 9.4 TH/MM3 (1.8-7.7); BASOPHIL % 0.3 % (0.0-2.0); EOSINOPHIL # 0.1 TH/MM3 (0-0.4); EOSINOPHIL % 1.1 % (0.0-4.0); HEMATOCRIT 35.2 % (35.0-46.0); HEMO FLAGS DIFF FINAL; LYMPHOCYTE # 1.2 TH/MM3 (1.0-4.8); MEAN CELL VOLUME 101.7 FL (80.0-100.0); MEAN CORPUSCULAR HEMOGLOBIN 34.9 PG (27.0-34.0); MEAN CORPUSCULAR HGB CONC 34.3 % (32.0-36.0); MONO % 2.9 % (0.0-8.0); NEUT % 84.7 % (16.0-70.0); PLATELET COUNT 252 TH/MM3 (150-450); RED BLOOD COUNT 3.46 MIL/MM3 (4.00-5.30); RED CELL DISTRIBUTION WIDTH 16.8 % (11.6-17.2); WHITE BLOOD COUNT 11.1 TH/MM3 (4.0-11.0)
[2016-08-19 20:19] LABS: ANION GAP 14 MEQ/L (5-15); AST (GOT) 40 U/L (15-37); BICARBONATE 21.7 MEQ/L (21.0-32.0); BLOOD UREA NITROGEN 27 MG/DL (7-18); CHLORIDE 98 MEQ/L (98-107); GLOMERULAR FILTRATION RATE 67 ML/MIN (>89); MAGNESIUM 1.8 MG/DL (1.5-2.5); POTASSIUM 3.5 MEQ/L (3.5-5.1); SODIUM (NA) 134 MEQ/L (136-145)
[2016-08-19 20:23] LABS: ALKALINE PHOSPHATASE 327 U/L (45-117); ALT (GPT) 23 U/L (10-53); TOTAL BILIRUBIN ADULT 0.7 MG/DL (0.2-1.0)
[2016-08-19] MEDS ORDERED: MORPHINE SULFATE 4 MG/ML INJ IV PUSH ONE (21:30)
[2016-08-19] MEDS ORDERED: ONDANSETRON HCL 4 MG/2 ML VIAL IV PUSH ONE (21:30)
[2016-08-19 21:39] VITALS: BP 122/56; PULSE 105; RESP 16; O2SAT 97
--- NOTE | 2016-08-20 23:23 | EKG ---
Date Performed: 08/19/2016 Time Performed: 20:00:13 PTAGE: 61 years EKG: SINUS TACHYCARDIA POSSIBLE LEFT ATRIAL ENLARGEMENT INFERIOR MYOCARDIAL INFARCTION POOR R WA VE PROGRESSION ABNORMAL ECG PREVIOUS TRACING : 08/15/2016 11.27 Compared to prior tracing no significant change DOCTOR: Dulce Dejesus Interpretating Date/Time 08/20/2016 23:22:33
== END 2016-08-20 00:17 | disposition hospice, inpatient (51) ==
LOC: NEPE 18:47
DX: C34.90 Malignant neoplasm of unspecified part of unspecified bronchus or lung (principal); C79.51 Secondary malignant neoplasm of bone; S32.000S Wedge compression fracture of unspecified lumbar vertebra, sequela; R94.31 Abnormal electrocardiogram [ECG] [EKG]; X58.XXXS Exposure to other specified factors, sequela; Z74.2 Need for assistance at home and no other household member able to render care
CPT/HCPCS: 80053; 83735; 85025; 93005; 96374; 96375; 99285; J2270; J2405; J7050